=== PATIENT | female | born 1985 | race Caucasian/White ===

== ENCOUNTER 2019-05-11 | Emergency (ER) | payer MEDICARE, MEDICAID | END 2019-05-12 01:22 | disposition home or self-care (01) | CPT/HCPCS: 36415; 71045; 71275; 80048; 83605; 85025; 87040; 93005; 94002; 94640; A4216; J0692; J2270; J2405; J7620 ==

== ENCOUNTER 2019-07-08 13:00 | Emergency (ER) | payer MEDICARE, MEDICAID ==
[2019-07-08] MEDS ORDERED: FUROSEMIDE INJ 40 MG/4 ML VIAL IV ONE (13:16)
--- NOTE | 2019-07-08 13:20 | ED.PDOC ---
History of Present Illness - General Chief Complaint: General Stated Complaint: swelling of face Time Seen by Provider: 07/08/19 13:15 Source: patient, EMS Exam Limitations: no limitations - History of Present Illness Initial Comments: patient comes in today for facial swelling. Patient started having problems with chest pain, productive sputum, and shortness of breath or worsening been baseline about 3 days ago. She was started on antibiotics at the [facility] and she has a history of recurrent pneumonias secondary to COPD caused from all full 1 and had trips and deficiency. Because of that she has also ventilator dependent and has a trach in place. Patient states this morning her mom noticed that she had swelling of the right side of her face. She has a history of having dental pain with a bad tooth on that side but states it has not hurt for some time since she killed the nerves by putting one of her morphine pills directly at the root. Patient has been retaining fluid the last couple of days and her hands and feet are very swollen. She states she usually lays on that right side and didn't know if that was causing the swelling. Patient's complaining of chest pain with deep inspiration on the right side as well over the past several days. Patient has no nausea or vomiting. Patient denies any fever or chills. Patient is able to communicate and is alert and oriented. Timing/Duration: getting worse Severity: severe Improving Factors: nothing Worsening Factors: other - deep inspiration Associated Symptoms: cough, shortness of breath Allergies/Adverse Reactions: Allergies NSAIDs Allergy (Verified 05/11/19 22:08) Review of Systems - Review of Systems Constitutional: States: no symptoms reported. Denies: chills, fever EENTM: States: no symptoms reported. Denies: eye pain, ear pain, nose congestion, throat pain, mouth pain Respiratory: States: short of breath. Denies: cough, wheezing Cardiology: States: no symptoms reported. Denies: chest pain, edema, palpitations Gastrointestinal/Abdominal: States: no symptoms reported. Denies: abdominal pain, nausea, vomiting Genitourinary: States: no symptoms reported Musculoskeletal: States: no symptoms reported Neurological: States: no symptoms reported Past Medical History (General) - Patient Medical History Hx Seizures: No Hx Stroke: No Hx Dementia: No Hx Asthma: No Hx of COPD: No Hx Cardiac Disorders: No Hx Congestive Heart Failure: Yes Hx Pacemaker: No Hx Hypertension: Yes Hx Thyroid Disease: No Hx Diabetes: No Hx Gastroesophageal Reflux: No Hx Renal Disease: No Hx Cancer: No Hx of HIV: No Hx Hepatitis C: No Hx MRSA: No - Vaccination History Hx Tetanus, Diphtheria Vaccination: No - patient cannot recall Hx Influenza Vaccination: Yes Hx Pneumococcal Vaccination: Yes - Social History Hx Tobacco Use: No Hx Alcohol Use: Yes Hx Substance Use: No Hx Depression: No Hx Physical Abuse: No Hx Emotional Abuse: No Hx Suspected Abuse: No - Female History Patient : No Family Medical History - Family History Mother Family History: Unknown Physical Exam - Physical Exam General Appearance: Alert, Comfortable, No apparent distress Ears, Nose, Throat: hearing grossly normal, normal ENT inspection, normal pharynx, other - swelling to face with increased to right cheek, no tooth pain, erythema, fluctulance of gums Neck: non-tender, full range of motion, supple, normal inspection Respiratory: chest non-tender, decreased breath sounds, crackles - right side upper and lower lobes, rhonchi Cardiovascular/Chest: normal peripheral pulses, regular rate, rhythm, no edema, no gallop, no murmur Peripheral Pulses: radial,right: 2+, radial,left: 2+ Gastrointestinal/Abdominal: normal bowel sounds, non tender, soft Extremity: swelling - non pitting edema to hands and feet Neurologic: alert, oriented x 3 Progress - Progress Progress: 07/08/19 15:27 swelling is better after Lasix with reassuring lab results - Results/Orders Results/Orders: 07/08/19 13:16 Catheter:Coleman QSHIFT 07/08/19 13:17 URINALYSIS Stat 07/08/19 13:24 Mechanical Ventilation DAILY 07/08/19 13:30 EKG STAT Laboratory Results WBC 13.8 K/mm3 (4.8-10.8) H 07/08/19 13:16 RBC 2.90 M/mm3 (4.20-5.40) L 07/08/19 13:16 Hgb 8.4 gm/dL (12.0-16.0) L 07/08/19 13:16 Hct 25.7 % (36.0-47.0) L 07/08/19 13:16 MCV 88.7 fl (81.0-99.0) 07/08/19 13:16 MCH 28.9 pg (27.0-31.0) 07/08/19 13:16 MCHC 32.5 g/dL (33.0-37.0) L 07/08/19 13:16 RDW 14.9 % (11.5-14.5) H 07/08/19 13:16 Plt Count 428 K/mm3 (130-400) H 07/08/19 13:16 MPV 7.8 fl (7.40-10.4) 07/08/19 13:16 Absolute Neuts (auto) 10.40 K/uL (1.8-6.8) H 07/08/19 13:16 Absolute Lymphs (auto) 1.30 K/uL (1.0-3.4) 07/08/19 13:16 Absolute Monos (auto) 1.50 K/uL (0.2-0.8) H 07/08/19 13:16 Absolute Eos (auto) 0.50 K/uL (0.0-0.4) H 07/08/19 13:16 Absolute Basos (auto) 0.10 K/uL (0.0-0.1) 07/08/19 13:16 Neutrophils % 75.7 % (42.0-78.0) 07/08/19 13:16 Lymphocytes % 9.3 % (20.0-50.0) L 07/08/19 13:16 Monocytes % 11.0 % (2.0-9.0) H 07/08/19 13:16 Eosinophils % 3.3 % (1.0-5.0) 07/08/19 13:16 Basophils % 0.7 % (0.0-2.0) 07/08/19 13:16 Sodium 138 mmol/L (135-145) 07/08/19 13:16 Potassium 4.0 mmol/L (3.6-5.0) 07/08/19 13:16 Chloride 100 mmol/L (101-111) L 07/08/19 13:16 Carbon Dioxide 29 mmol/L (21-31) 07/08/19 13:16 Anion Gap 13.0 (12-18) 07/08/19 13:16 BUN 11 mg/dL (7-18) 07/08/19 13:16 Creatinine 0.53 mg/dL (0.6-1.3) L 07/08/19 13:16 BUN/Creatinine Ratio 20.8 (10-20) H 07/08/19 13:16 Random Glucose 115 mg/dL (70-105) H 07/08/19 13:16 Serum Osmolality 276.0 mOsm/L (275-295) 07/08/19 13:16 Lactic Acid 0.8 mmol/L (0.5-2.2) 07/08/19 13:16 Calcium 8.9 mg/dL (8.4-10.2) 07/08/19 13:16 Total Bilirubin 0.2 mg/dL (0.2-1.0) 07/08/19 13:16 AST 16 IU/L (10-42) 07/08/19 13:16 ALT 11 IU/L (10-60) 07/08/19 13:16 Alkaline Phosphatase 103 IU/L (42-121) 07/08/19 13:16 B-Natriuretic Peptide 11.0 pg/ml (0-100) 07/08/19 13:16 Serum Total Protein 7.1 gm/dL (6.4-8.2) 07/08/19 13:16 Albumin 2.6 g/dl (3.2-5.5) L 07/08/19 13:16 Globulin 4.5 gm/dL (2.3-3.5) H 07/08/19 13:16 Albumin/Globulin Ratio 0.6 (1.1-1.9) L 07/08/19 13:16 Patient Name: EDVIN ECKERT Gender: Female Date of : 1985 Referring Physician: FREDIS MARTINI Organization: [facility] Accession Number: [id number] Requested Date: July 08, 2019 13:16 Report Status: Final Requested Procedure: 1 Procedure Description: Chest,2 Views Modality: CR Findings Reporting MD: Antonia Srivastava Fellow MD: Not available Dictation Time: Option 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 Lungs are hyperexpanded. Extensive reticular opacities are seen in the bilateral mid and lower lung zones with areas of architectural distortion seen in the lower lobes. No large pleural effusion or pneumothorax is present. Heart size is within normal limits. No acute osseous abnormality. Impression: Findings of severe interstitial lung disease - EKG/XRAY/CT EKG: Sinus, Tachy, no ST T wave changes Comments: HR 113 with slight rightward shift ?R vent hypertrophy Departure - Departure Clinical Impression: Fluid retention Disposition: Discharge to SNF Departure Forms: ED Discharge - Pt. Copy, Patient Portal Self Enrollment Diet: regular diet Referrals: NAVEEN ELLIS [Primary Care Provider] - 1-2 Weeks Additional Instructions: return to ER for increased shortness of breath, chest pain
[2019-07-08] MEDS ORDERED: MORPHINE SULFATE INJ 10 MG/ML VIAL IV ONE ×2 (14:17→16:04)
--- NOTE | 2019-07-08 14:41 | RAD ---
Procedure: XR CHEST 2 VIEWS Exam Date: 07/08/2019 1:16 PM CDT Ordering Provider: FREDIS MARTINI Clinical Indication: chest pain, fluid retention, Comparison: May 11, 2019 Findings: Tracheostomy tube in expected position. Lungs are hyperexpanded. Extensive reticular opacities are seen in the bilateral mid and lower lung zones with areas of architectural distortion seen in the lower lobes. No large pleural effusion or pneumothorax is present. Heart size is within normal limits. No acute osseous abnormality. Impression: Findings of severe interstitial lung disease. Electronically signed by: Antonia Srivastava MD 07/08/2019 2:40 PM CDT
[2019-07-08 16:42] VITALS: BP 111/72; TEMP 98.1; O2SAT 97
== END 2019-07-08 16:00 ==
LOC: ER 13:00
DX: R60.0 Localized edema (principal); R00.0 Tachycardia, unspecified; I50.9 Heart failure, unspecified; I11.0 Hypertensive heart disease with heart failure; J44.9 Chronic obstructive pulmonary disease, unspecified; Z88.6 Allergy status to analgesic agent; Z87.01 Personal history of pneumonia (recurrent); Z99.11 Dependence on respirator [ventilator] status
CPT/HCPCS: 36415; 71046; 80053; 83605; 83880; 85025; 93005; 94002; J1940; J2270

== ENCOUNTER 2019-07-19 02:33 | Emergency (ER) | payer MEDICAID, MEDICARE ==
[2019-07-19 04:08] VITALS: TEMP 98.1
[2019-07-19 04:46] VITALS: BP 107/68; O2SAT 99
== END 2019-07-19 04:53 | disposition home or self-care (01) ==
LOC: ER 02:33
DX: R07.81 Pleurodynia (principal); I50.9 Heart failure, unspecified; I11.0 Hypertensive heart disease with heart failure; Z79.899 Other long term (current) drug therapy; Z88.6 Allergy status to analgesic agent; Z87.01 Personal history of pneumonia (recurrent); Z99.11 Dependence on respirator [ventilator] status
CPT/HCPCS: 71045; 80053; 81001; 85025; 93005; 94002; J1170; J2270; J2405

== ENCOUNTER 2019-07-29 05:34 | Emergency (ER) | payer MEDICARE ==
[2019-07-29] MEDS ORDERED: LEVALBUTEROL NEBS 1.25 MG/3 ML VIAL NEB ONE (05:53)
[2019-07-29] MEDS ORDERED: IPRATROPIUM BROMIDE NEBS 0.5 MG/2.5 ML VIAL NEB ONE (05:53)
[2019-07-29] MEDS ORDERED: ACETYLCYSTEIN 20 % 6,000 MG/30 ML VIAL NEB ONE (05:54)
[2019-07-29] MEDS ORDERED: MORPHINE SULFATE INJ 10 MG/ML VIAL IV ONE ×2 (06:15→07:24)
[2019-07-29] MEDS ORDERED: methylPREDNISolone SODIUM SUC 40 MG/ML VIAL IV ONE (06:16)
--- NOTE | 2019-07-29 06:41 | ED.PDOC ---
History of Present Illness - General Chief Complaint: Respiratory Problem Stated Complaint: short of breath with panic attack Time Seen by Provider: 07/29/19 05:45 Source: patient Exam Limitations: no limitations - History of Present Illness Initial Comments: The patient is a 33-year-old female presenting from the long-term ventilator care facility secondary to a sensation of shortness of breath along with some left posterior lateral pleuritic-type pain starting a day or 2 ago. The patient does have copious secretions. She apparently has some form of an alpha 1 antitrypsin deficiency. She has received several breathing treatments over the night which have not seemed to help a whole lot. EMS gave her a dose of Ativan which seems to help some. She does have significant anxiety and has had significant panic attacks in the past giving her some of her shortness of breath. She's also had significant pneumonias in the past as well. No fevers. Timing/Duration: 24 hours Severity: moderate Worsening Factors: movement Associated Symptoms: chest pain, shortness of breath Allergies/Adverse Reactions: Allergies NSAIDs Allergy (Verified 07/19/19 02:48) Tomato Allergy (Verified 07/19/19 02:48) Home Medications: Ambulatory Orders Acetaminophen [Tylenol] 500 mg PO Q8HRS PRN 07/19/19 Alum & Mag Hydrox-Simethicone [Mylanta] 5 ml PO Q8HRS PRN 07/19/19 Amoxicillin 500 mg PO TID 07/19/19 Arformoterol Tartrate Nebs [Brovana Nebs] 15 mcg NEB RTBID 07/19/19 Atropine 1% Ophth Briana [(None)] 5 ml SL TID 07/19/19 Budesonide (Inhalation) [Pulmicort] 0.5 mg INH BID 07/19/19 Cetirizine HCl [ZyrTEC] 10 mg PO DAILY 07/19/19 Clonazepam 1 mg PO Q8HRS 07/19/19 DULoxetine HCL [Cymbalta] 60 mg PO DAILY 07/19/19 Divalproex Sodium [Depakote Tab] 250 mg PO DAILY 07/19/19 Enoxaparin Sodium [Lovenox] 40 mg SUBCU QD 07/19/19 Furosemide 20 mg PO DAILY 07/19/19 Gabapentin 300 mg PO BID 07/19/19 HYDROcodone 10MG/APAP 325MG [[place] 10/325] 1 tab PO Q8HRS PRN 07/19/19 Ipratropium/Albuterol [Duoneb] 3 ml NEB Q6HRS PRN 07/19/19 Lactobacillus [Acidophilus] 1 cap PO DAILY 07/19/19 Lidocaine 1% 2 ml [Xylocaine] 2 ml NEB Q6HRS PRN 07/19/19 Magnesium Hydroxide [Milk Of Magnesia] 30 ml PO DAILY PRN 07/19/19 Multiple Vitamins W/ Minerals [Multivitamin Adult Extra] 1 tablet PO DAILY 07/19/19 Nitroglycerin 0.4 mg Tab [Nitrostat] 0.4 mg SL Q5MIN PRN 07/19/19 Nystatin Powder [Mycostatin] 15 gm TOP DAILY 07/19/19 Pantoprazole Tablet [Protonix] 40 mg PO ACBK 07/19/19 Potassium Chloride [Potassium Chloride ER] 10 meq PO BID 07/19/19 Promethazine HCl 25 mg PO Q6HR PRN 07/19/19 Scopolamine Patch 1.5MG [Transderm-Scop Patch] 1.5 mg TOP DAILY 07/19/19 Trazodone HCl [Trazodone Hydrochloride] 25 mg PO BEDTIME 07/19/19 Review of Systems - Review of Systems Constitutional: States: no symptoms reported EENTM: States: no symptoms reported Respiratory: States: cough, short of breath, wheezing Cardiology: States: chest pain Gastrointestinal/Abdominal: States: no symptoms reported Genitourinary: States: no symptoms reported Musculoskeletal: States: no symptoms reported Skin: States: no symptoms reported Neurological: States: anxiety - moderate and recurrent All other Systems: No Change from Baseline Past Medical History (General) - Patient Medical History Hx Seizures: No Hx Stroke: No Hx Dementia: No Hx Asthma: No Hx of COPD: No Hx Cardiac Disorders: Yes - tachycardia Hx Congestive Heart Failure: Yes Hx Pacemaker: No Hx Hypertension: Yes Hx Thyroid Disease: No Hx Diabetes: No Hx Gastroesophageal Reflux: No Hx Renal Disease: No Hx Cancer: No Hx of HIV: No Hx Hepatitis C: No Hx MRSA: No Surgical History: other - Vaccination History Hx Tetanus, Diphtheria Vaccination: No - patient cannot recall Hx Influenza Vaccination: Yes Hx Pneumococcal Vaccination: Yes - Social History Hx Tobacco Use: No Hx Alcohol Use: Yes Hx Substance Use: No Hx Depression: No Hx Physical Abuse: No Hx Emotional Abuse: No Hx Suspected Abuse: No - Activities of Daily Living [facility]dc[facility]Assisted Living (if applicable):: [facility] - Female History Patient : No Family Medical History - Family History Mother Family History: Unknown Physical Exam - Physical Exam General Appearance: Alert, Anxious Eye Exam: bilateral normal - the patient the patient does have bilateral subconjunctival hemorrhages. Vision is preserved. Ears, Nose, Throat: hearing grossly normal, normal pharynx Neck: full range of motion, other - trach collar in place Respiratory: accessory muscle use - mild, other - chronic dry rales Cardiovascular/Chest: normal peripheral pulses, no edema, tachycardia - regular Peripheral Pulses: radial,right: 2+, radial,left: 2+ Gastrointestinal/Abdominal: non tender, soft Rectal Exam: deferred Back Exam: other - posterior lateral left thoracic pain with mvt and palpation Extremity: normal range of motion, non-tender, normal inspection, normal capillary refill Neurologic: physics tutor II-XII nml as tested, alert, oriented x 3, other - anxious Skin Exam: normal color Comments: Vital Signs - 24 hr 07/29/19 07/29/19 07/29/19 05:51 05:57 06:17 Temperature 97.6 F 99.0 F Pulse Rate 140 H Pulse Rate [ 135 H 131 H 140 H left] Respiratory 22 22 22 Rate Blood Pressure 160/96 113/70 [right] O2 Sat by Pulse 100 94 L Oximetry Progress - Progress Progress: 07/29/19 07:25 the patient is a 33-year-old female brought into the emergency room secondary to shortness of breath and what appears to be left lateral pleuritic chest pain. The patient is feeling better at this point. She is oxygenating as she normally does. The breathing treatment with Mucomyst seems to have helped. The pain management for the pleurisy also seemed to help. she does have a leukocytosis of approximately 19,000. This is up from 9000 last week. While the chest x-ray showed no definitive pneumonia, given her chronic conditions the patient is going to be placed on Augmentin twice a day for 7 days and prednisone 20 mg a day for 5 days. She is going to be written for once daily Mucomyst nebulizer treatments for the next week as well. the patient is going to be written for 2 weeks worth of doxepin to be taken at night for her anxiety. This is not a good long-term solution for this patient. She does need to see her primary care doctor for other options for her anxiety. I do believe it was a significant contributor to her shortness of breath tonight. ER warnings are given for any worsening. The patient looks much more comfortable at this point. 07/29/19 07:31 autumn key 747 - Results/Orders Results/Orders: 07/29/19 05:54 Chest,1 View [RAD] Stat 07/29/19 06:10 SPUTUM CULTURE Stat 07/29/19 06:30 B-TYPE NATRIURETIC PEPTIDE/BNP Stat CARDIAC ENZYME GROUP Stat COMPLETE METABOLIC PROFILE Stat Laboratory Results - last 24 hr 07/29/19 07/29/19 06:30 06:30 WBC 18.9 H RBC 3.63 L Hgb 10.4 L Hct 32.8 L MCV 90.5 MCH 28.6 MCHC 31.6 L RDW 16.6 H Plt Count 471 H MPV 8.0 Absolute Neuts (auto) 15.50 H Absolute Lymphs (auto) 1.50 Absolute Monos (auto) 1.50 H Absolute Eos (auto) 0.50 H Absolute Basos (auto) 0.10 Neutrophils % 81.8 H Lymphocytes % 7.7 L Monocytes % 7.7 Eosinophils % 2.4 Basophils % 0.4 Sodium 138 Potassium 4.1 Chloride 97 L Carbon Dioxide 29 Anion Gap 16.1 BUN 14 Creatinine 0.72 BUN/Creatinine Ratio 19.4 Random Glucose 104 Serum Osmolality 276.5 Calcium 8.8 Total Bilirubin 0.3 AST 16 ALT < 8 L Alkaline Phosphatase 82 Creatine Kinase 27 Serum Total Protein 8.5 H Albumin 3.6 Globulin 4.9 H Albumin/Globulin Ratio 0.7 L Departure - Departure Clinical Impression: [id number] deficiency, Pleurisy, Anxiety attack Reactive airway disease Qualifiers: Asthma severity: moderate Asthma persistence: persistent Asthma complication type: with acute exacerbation Qualified Code(s): J45.41 - Moderate persistent asthma with (acute) exacerbation Disposition: Discharge to SNF Condition: Fair Departure Forms: ED Discharge - Pt. Copy, Patient Portal Self Enrollment Diet: regular diet - for the patient Activity: increase activity as tolerated Referrals: NAVEEN ELLIS [Primary Care Provider] - 1-2 Days Home Medications: Ambulatory Orders Acetaminophen [Tylenol] 500 mg PO Q8HRS PRN 07/19/19 Alum & Mag Hydrox-Simethicone [Mylanta] 5 ml PO Q8HRS PRN 07/19/19 Amoxicillin 500 mg PO TID 07/19/19 Arformoterol Tartrate Nebs [Brovana Nebs] 15 mcg NEB RTBID 07/19/19 Atropine 1% Ophth Briana [(None)] 5 ml SL TID 07/19/19 Budesonide (Inhalation) [Pulmicort] 0.5 mg INH BID 07/19/19 Cetirizine HCl [ZyrTEC] 10 mg PO DAILY 07/19/19 Clonazepam 1 mg PO Q8HRS 07/19/19 DULoxetine HCL [Cymbalta] 60 mg PO DAILY 07/19/19 Divalproex Sodium [Depakote Tab] 250 mg PO DAILY 07/19/19 Enoxaparin Sodium [Lovenox] 40 mg SUBCU QD 07/19/19 Furosemide 20 mg PO DAILY 07/19/19 Gabapentin 300 mg PO BID 07/19/19 HYDROcodone 10MG/APAP 325MG [[place] 10/325] 1 tab PO Q8HRS PRN 07/19/19 Ipratropium/Albuterol [Duoneb] 3 ml NEB Q6HRS PRN 07/19/19 Lactobacillus [Acidophilus] 1 cap PO DAILY 07/19/19 Lidocaine 1% 2 ml [Xylocaine] 2 ml NEB Q6HRS PRN 07/19/19 Magnesium Hydroxide [Milk Of Magnesia] 30 ml PO DAILY PRN 07/19/19 Multiple Vitamins W/ Minerals [Multivitamin Adult Extra] 1 tablet PO DAILY 07/19/19 Nitroglycerin 0.4 mg Tab [Nitrostat] 0.4 mg SL Q5MIN PRN 07/19/19 Nystatin Powder [Mycostatin] 15 gm TOP DAILY 07/19/19 Pantoprazole Tablet [Protonix] 40 mg PO ACBK 07/19/19 Potassium Chloride [Potassium Chloride ER] 10 meq PO BID 07/19/19 Promethazine HCl 25 mg PO Q6HR PRN 07/19/19 Scopolamine Patch 1.5MG [Transderm-Scop Patch] 1.5 mg TOP DAILY 07/19/19 Trazodone HCl [Trazodone Hydrochloride] 25 mg PO BEDTIME 07/19/19 Additional Instructions: the patient is a 33-year-old female brought into the emergency room secondary to shortness of breath and what appears to be left lateral pleuritic chest pain. The patient is feeling better at this point. She is oxygenating as she normally does. The breathing treatment with Mucomyst seems to have helped. The pain management for the pleurisy also seemed to help. she does have a leukocytosis of approximately 19,000. This is up from 9000 last week. While the chest x-ray showed no definitive pneumonia, given her chronic conditions the patient is going to be placed on Augmentin twice a day for 7 days and prednisone 20 mg a day for 5 days. She is going to be written for once daily Mucomyst nebulizer treatments for the next week as well. the patient is going to be written for 2 weeks worth of doxepin to be taken at night for her anxiety. This is not a good long-term solution for this patient. She does need to see her primary care doctor for other options for her anxiety. I do believe it was a significant contributor to her shortness of breath tonight. ER warnings are given for any worsening. The patient looks much more comfortable at this point.
--- NOTE | 2019-07-29 07:00 | RAD ---
CLINICAL HISTORY: sob, anxiety left lateral chest pain COMPARISON: July 19, 2019. TECHNIQUE: XR CHEST 1 VIEW 07/29/2019 5:54 AM CDT FINDINGS: Cardiac silhouette is normal in size. There is moderate bibasilar and mid lung airspace disease. There are bilateral pleural effusions. There is no pneumothorax. There are no acute osseous findings. Tracheostomy is unchanged. IMPRESSION: No change. Electronically signed by: Fernando Nunez MD 07/29/2019 6:57 AM CDT
[2019-07-29] MEDS ORDERED: predniSONE 20 MG TAB GT ONE (07:24)
[2019-07-29] MEDS ORDERED: AMOXICILLIN & POT CLAVULANATE 875 MG TAB GT ONE (07:24)
[2019-07-29] MEDS ORDERED: AMOXICILLIN & POT CLAVULANATE 875 MG TAB PO ONE (07:47)
[2019-07-29] MEDS ORDERED: predniSONE 20 MG TAB PO ONE (07:47)
[2019-07-29 08:20] VITALS: BP 115/89; TEMP 97; O2SAT 100
== END 2019-07-29 08:18 ==
LOC: ER 05:34
DX: J45.41 Moderate persistent asthma with (acute) exacerbation (principal); F41.9 Anxiety disorder, unspecified; R09.1 Pleurisy; E88.01 Alpha-1-antitrypsin deficiency; I50.9 Heart failure, unspecified; I11.0 Hypertensive heart disease with heart failure; Z87.01 Personal history of pneumonia (recurrent); Z88.6 Allergy status to analgesic agent; Z79.899 Other long term (current) drug therapy
CPT/HCPCS: 36415; 71045; 80053; 82550; 82553; 83880; 84484; 85025; 87070; 94002; 94640; 94770; J1030; J2270; J7614

== ENCOUNTER 2019-09-11 18:20 | Emergency (ER) | payer MEDICARE ==
[2019-09-11 18:42] VITALS: TEMP 97.9
--- NOTE | 2019-09-11 18:55 | ED.PDOC ---
History of Present Illness - General Chief Complaint: Respiratory Problem Stated Complaint: shortness of breath Time Seen by Provider: 09/11/19 18:35 - History of Present Illness Initial Comments: 34 yo F tracheostomy and aspiration pneumonia presents to the ED with copious green secretions and phlegm from tacheostomy site and coughing. Limited history but patient has been coughing so hard has ecchymosis around right periorbital area. Pt. follow commands and respiratory at bedside pt. c/o chest pain sob. Reports sweating at night but no diaphoresis. No change in diet bowel or bladder symptoms are disturbing rest. Denies drinking or smoking admits FH DM denies FH HTN no other c/o today. Allergies/Adverse Reactions: Allergies NSAIDs Allergy (Verified 07/19/19 02:48) Tomato Allergy (Verified 07/19/19 02:48) Home Medications: Ambulatory Orders Acetaminophen [Tylenol] 500 mg PO Q8HRS PRN 07/19/19 Alum & Mag Hydrox-Simethicone [Mylanta] 5 ml PO Q8HRS PRN 07/19/19 Amoxicillin 500 mg PO TID 07/19/19 Arformoterol Tartrate Nebs [Brovana Nebs] 15 mcg NEB RTBID 07/19/19 Atropine 1% Ophth Briana [(None)] 5 ml SL TID 07/19/19 Budesonide (Inhalation) [Pulmicort] 0.5 mg INH BID 07/19/19 Cetirizine HCl [ZyrTEC] 10 mg PO DAILY 07/19/19 Clonazepam 1 mg PO Q8HRS 07/19/19 DULoxetine HCL [Cymbalta] 60 mg PO DAILY 07/19/19 Divalproex Sodium [Depakote Tab] 250 mg PO DAILY 07/19/19 Enoxaparin Sodium [Lovenox] 40 mg SUBCU QD 07/19/19 Furosemide 20 mg PO DAILY 07/19/19 Gabapentin 300 mg PO BID 07/19/19 HYDROcodone 10MG/APAP 325MG [[place] 10/325] 1 tab PO Q8HRS PRN 07/19/19 Ipratropium/Albuterol [Duoneb] 3 ml NEB Q6HRS PRN 07/19/19 Lactobacillus [Acidophilus] 1 cap PO DAILY 07/19/19 Lidocaine 1% 2 ml [Xylocaine] 2 ml NEB Q6HRS PRN 07/19/19 Magnesium Hydroxide [Milk Of Magnesia] 30 ml PO DAILY PRN 07/19/19 Multiple Vitamins W/ Minerals [Multivitamin Adult Extra] 1 tablet PO DAILY 07/19/19 Nitroglycerin 0.4 mg Tab [Nitrostat] 0.4 mg SL Q5MIN PRN 07/19/19 Nystatin Powder [Mycostatin] 15 gm TOP DAILY 07/19/19 Pantoprazole Tablet [Protonix] 40 mg PO ACBK 07/19/19 Potassium Chloride [Potassium Chloride ER] 10 meq PO BID 07/19/19 Promethazine HCl 25 mg PO Q6HR PRN 07/19/19 Scopolamine Patch 1.5MG [Transderm-Scop Patch] 1.5 mg TOP DAILY 07/19/19 Trazodone HCl [Trazodone Hydrochloride] 25 mg PO BEDTIME 07/19/19 Review of Systems - Review of Systems Constitutional: States: see HPI EENTM: States: see HPI Respiratory: States: see HPI Cardiology: States: see HPI Gastrointestinal/Abdominal: States: see HPI Genitourinary: States: see HPI Musculoskeletal: States: see HPI Skin: States: see HPI Neurological: States: see HPI Endocrine: States: see HPI Hematologic/Lymphatic: States: see HPI All other Systems: Reviewed and Negative Past Medical History (General) - Patient Medical History Hx Seizures: No Hx Stroke: No Hx Dementia: No Hx Asthma: No Hx of COPD: No Hx Cardiac Disorders: Yes - tachycardia Hx Congestive Heart Failure: Yes Hx Pacemaker: No Hx Hypertension: Yes Hx Thyroid Disease: No Hx Diabetes: No Hx Gastroesophageal Reflux: No Hx Renal Disease: No Hx Cancer: No Hx of HIV: No Hx Hepatitis C: No Hx MRSA: No Surgical History: cholecystectomy - Vaccination History Hx Tetanus, Diphtheria Vaccination: No - patient cannot recall Hx Influenza Vaccination: Yes Hx Pneumococcal Vaccination: Yes - Social History Hx Tobacco Use: No Hx Alcohol Use: Yes Hx Substance Use: No Hx Depression: No Hx Physical Abuse: No Hx Emotional Abuse: No Hx Suspected Abuse: No - Activities of Daily Living Shelter/Assisted Living (if applicable):: [facility] - Female History Patient : No Family Medical History - Family History Mother Family History: Unknown Physical Exam - Physical Exam General Appearance: Other - uncomfortable coughing sob much more comfortable after suction respiratory at bedside Eyes, Ears, Nose, Throat Exam: other - tracheostomy in place greenish plegm sputum Neck: non-tender, full range of motion Respiratory: other - rales bilaterally Cardiovascular/Chest: tachycardia Gastrointestinal/Abdominal: non tender, soft Rectal Exam: deferred Extremity: normal range of motion, non-tender Neurologic: no motor/sensory deficits Skin Exam: other - RLE erythema and swelling Progress - Progress Progress: 09/11/19 18:57 A/P-Respiratory Distress, Aspiration Pneumonia, Tracheostomy Care-respiratory suction iv bolus cbc cmp lipase trop ekg 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 does not wish to be transferred to [place] has improved after suction will transfer back to correction - Results/Orders Results/Orders: Non specific TW changes Sinus Tachycardia, abnormal EKG Laboratory Tests 09/11/19 09/11/19 09/11/19 19:20 19:20 19:20 WBC 11.9 H RBC 3.20 L Hgb 8.9 L Hct 28.3 L MCV 88.5 MCH 27.9 MCHC 31.5 L RDW 15.3 H Plt Count 318 MPV 7.2 L Absolute Neuts (auto) 8.90 H Absolute Lymphs (auto) 1.40 Absolute Monos (auto) 1.10 H Absolute Eos (auto) 0.30 Absolute Basos (auto) 0.10 Neutrophils % 75.2 Lymphocytes % 11.9 L Monocytes % 9.6 H Eosinophils % 2.7 Basophils % 0.6 Sodium 136 Potassium 3.9 Chloride 88 L Carbon Dioxide 36 H Anion Gap 15.9 BUN 10 Creatinine 0.73 BUN/Creatinine Ratio 13.7 Random Glucose 103 Serum Osmolality 271.3 L Lactic Acid Calcium 8.5 Total Bilirubin 0.5 AST 15 ALT 9 L Alkaline Phosphatase 73 Troponin I < 0.02 Serum Total Protein 7.5 Albumin 3.2 Globulin 4.3 H Albumin/Globulin Ratio 0.7 L Lipase 26 Serum HCG, Qual Urine HCG, Qual 09/11/19 09/11/19 19:20 19:20 WBC RBC Hgb Hct MCV MCH MCHC RDW Plt Count MPV Absolute Neuts (auto) Absolute Lymphs (auto) Absolute Monos (auto) Absolute Eos (auto) Absolute Basos (auto) Neutrophils % Lymphocytes % Monocytes % Eosinophils % Basophils % Sodium Potassium Chloride Carbon Dioxide Anion Gap BUN Creatinine BUN/Creatinine Ratio Random Glucose Serum Osmolality Lactic Acid 0.6 Calcium Total Bilirubin AST ALT Alkaline Phosphatase Troponin I Serum Total Protein Albumin Globulin Albumin/Globulin Ratio Lipase Serum HCG, Qual Negative Urine HCG, Qual Cancelled EXAM DESCRIPTION: XR Chest, one view CLINICAL HISTORY: aspiration pneumonia. COMPARISON: July 29, 2019 FINDINGS: Gastric tube is again noted. The heart is normal in size. The pulmonary vascularity is normal. Changes of COPD with superimposed increased interstitial markings in the perihilar and infrahilar regions are noted. Hyperinflation is seen in the upper lobes. Blunting of the left costophrenic angle is noted. The osseous structures appear unremarkable. IMPRESSION: Extensive chronic interstitial changes. Electronically signed by: Jordana Chavez MD 09/11/2019 8:35 PM CDT Departure - Departure Clinical Impression: Respiratory distress, Tracheostomy care Aspiration pneumonia Qualifiers: Aspiration pneumonia type: unspecified Laterality: unspecified laterality Lung location: unspecified part of lung Qualified Code(s): J69.0 - Pneumonitis due to inhalation of food and vomit Time of Disposition: 23:17 Disposition: Discharge to SNF Condition: Good Departure Forms: ED Discharge - Pt. Copy, Patient Portal Self Enrollment Instructions: DI for Pneumonia -- Adult Referrals: NAVEEN ELLIS [Primary Care Provider] - 1-2 Weeks Home Medications: Ambulatory Orders Acetaminophen [Tylenol] 500 mg PO Q8HRS PRN 07/19/19 Alum & Mag Hydrox-Simethicone [Mylanta] 5 ml PO Q8HRS PRN 07/19/19 Amoxicillin 500 mg PO TID 07/19/19 Arformoterol Tartrate Nebs [Brovana Nebs] 15 mcg NEB RTBID 07/19/19 Atropine 1% Ophth Briana [(None)] 5 ml SL TID 07/19/19 Budesonide (Inhalation) [Pulmicort] 0.5 mg INH BID 07/19/19 Cetirizine HCl [ZyrTEC] 10 mg PO DAILY 07/19/19 Clonazepam 1 mg PO Q8HRS 07/19/19 DULoxetine HCL [Cymbalta] 60 mg PO DAILY 07/19/19 Divalproex Sodium [Depakote Tab] 250 mg PO DAILY 07/19/19 Enoxaparin Sodium [Lovenox] 40 mg SUBCU QD 07/19/19 Furosemide 20 mg PO DAILY 07/19/19 Gabapentin 300 mg PO BID 07/19/19 HYDROcodone 10MG/APAP 325MG [[place] 10325] 1 tab PO Q8HRS PRN 07/19/19 Ipratropium/Albuterol [Duoneb] 3 ml NEB Q6HRS PRN 07/19/19 Lactobacillus [Acidophilus] 1 cap PO DAILY 07/19/19 Lidocaine 1% 2 ml [Xylocaine] 2 ml NEB Q6HRS PRN 07/19/19 Magnesium Hydroxide [Milk Of Magnesia] 30 ml PO DAILY PRN 07/19/19 Multiple Vitamins W/ Minerals [Multivitamin Adult Extra] 1 tablet PO DAILY 07/19/19 Nitroglycerin 0.4 mg Tab [Nitrostat] 0.4 mg SL Q5MIN PRN 07/19/19 Nystatin Powder [Mycostatin] 15 gm TOP DAILY 07/19/19 Pantoprazole Tablet [Protonix] 40 mg PO ACBK 07/19/19 Potassium Chloride [Potassium Chloride ER] 10 meq PO BID 07/19/19 Promethazine HCl 25 mg PO Q6HR PRN 07/19/19 Scopolamine Patch 1.5MG [Transderm-Scop Patch] 1.5 mg TOP DAILY 07/19/19 Trazodone HCl [Trazodone Hydrochloride] 25 mg PO BEDTIME 07/19/19
[2019-09-11] MEDS ORDERED: metroNIDAZOLE IV PREMIX 500MG 100 ML IVPB ONE (19:26)
[2019-09-11] MEDS: SODIUM CHLORIDE 0.9% 1000ML 1,000 ML IVS ONE (19:28)
[2019-09-11] MEDS: metroNIDAZOLE IV PREMIX 500MG 500 MG in PREMIX BAG 1 BAG IVPB ONE (19:29)
[2019-09-11] MEDS: IPRATROPIUM/ALBUTEROL 3 ML VIAL NEB ONE (19:35)
[2019-09-11] MEDS ORDERED: PIPERACILLIN/TAZOBACTAM 3.375 GM VIAL IVPB ONE (20:18)
[2019-09-11] MEDS ORDERED: SODIUM CHLORIDE 0.9% 100ML 100 ML IVPB ONE ×2 (20:18→20:20)
[2019-09-11] MEDS: PIPERACILLIN/TAZOBACTAM 3.375 GM in SODIUM CHLORIDE 0.9% 100ML 100 ML IVPB ONE (20:22)
--- NOTE | 2019-09-11 20:41 | RAD ---
EXAM DESCRIPTION: XR Chest, one view CLINICAL HISTORY: aspiration pneumonia. COMPARISON: July 29, 2019 FINDINGS: Gastric tube is again noted. The heart is normal in size. The pulmonary vascularity is normal. Changes of COPD with superimposed increased interstitial markings in the perihilar and infrahilar regions are noted. Hyperinflation is seen in the upper lobes. Blunting of the left costophrenic angle is noted. The osseous structures appear unremarkable. IMPRESSION: Extensive chronic interstitial changes. Electronically signed by: Jordana Chavez MD 09/11/2019 8:35 PM CDT
[2019-09-11] MEDS ORDERED: VANCOMYCIN HCL INJ 1,000 MG VIAL IVPB ONE (21:03)
[2019-09-11] MEDS ORDERED: SODIUM CHLORIDE 0.9% 250ML 250 ML ONE (21:03)
[2019-09-11] MEDS: VANCOMYCIN HCL INJ 1,000 MG in SODIUM CHLORIDE 0.9% 250ML 250 ML IVPB ONE (21:43)
[2019-09-11] MEDS: MORPHINE SULFATE INJ 10 MG/ML VIAL IV ONE (22:31)
[2019-09-11] MEDS: ONDANSETRON INJ 4 MG/2 ML VIAL IV ONE (22:32)
[2019-09-11 23:31] VITALS: BP 101/68; O2SAT 100
[2019-09-12] MEDS: SODIUM CHLORIDE 0.9% 1000ML 1,000 ML IVS ONE (06:35)
== END 2019-09-11 23:52 ==
LOC: ER 18:20
DX: R06.03 Acute respiratory distress (principal); J69.0 Pneumonitis due to inhalation of food and vomit; R00.0 Tachycardia, unspecified; R07.9 Chest pain, unspecified; I50.9 Heart failure, unspecified; I11.0 Hypertensive heart disease with heart failure; Z93.0 Tracheostomy status; Z79.899 Other long term (current) drug therapy; Z88.6 Allergy status to analgesic agent
CPT/HCPCS: 71045; 80053; 83605; 83690; 84484; 84703; 85025; 87040; 87502; 93005; 94002; 94770; J2060; J2270; J2405; J2543; J3370; J3490; J7030; J7050; J7620

== ENCOUNTER 2020-01-12 21:21 | Emergency (ER) | payer MEDICARE, MEDICAID ==
[2020-01-12] MEDS: SODIUM CHLORIDE 0.9% (FLUSH) 10 ML SYG IV PRN (22:03)
[2020-01-12] MEDS: SODIUM CHLORIDE 0.9% 1000ML 1,000 ML IVS ONE (22:05)
[2020-01-12] MEDS ORDERED: SODIUM CHL 0.9% 100ML MINI-BAG 100 ML IVPB ONE (22:05)
[2020-01-12] MEDS: cefTRIAXone SODIUM 2 GM in SODIUM CHL 0.9% 100ML MINI-BAG 100 ML IVPB ONE (22:05)
[2020-01-12] MEDS: fentaNYL CITRATE INJ 50 MCG/ML AMP IV ONE (22:06)
[2020-01-12] MEDS: ONDANSETRON INJ 4 MG/2 ML VIAL IV ONE (22:06)
--- NOTE | 2020-01-12 22:35 | ED.PDOC ---
History of Present Illness - General Chief Complaint: Respiratory Problem Stated Complaint: Shortness of breath, chest pain Time Seen by Provider: 01/12/20 21:33 Source: patient, RN notes reviewed, Vital Signs reviewed, EMS notes reviewed Exam Limitations: physical impairment - Chronic tracheostomy - History of Present Illness Initial Comments: This is a 34-year-old female with history of alpha 1 antitrypsin deficiency, COPD, chronic trach dependence, from the retirement presenting for chest pain that started yesterday. She also reports some increased cough and felt like "something got stuck yesterday in my lungs and they were unable to suction it". She states her chest pain worsens with cough and deep breathing. Nurses notes from the retirement also report increased edema, patient denies any worsening swelling. Patient was treated with a Z-Lam at her retirement 2 weeks ago. She denies any fever. No nausea/vomiting. Timing/Duration: yesterday Severity: moderate Possible Cause: frequent episodes Improving Factors: nothing Worsening Factors: other - Cough, deep breathing Associated Symptoms: chest pain/soreness, cough, shortness of breath Allergies/Adverse Reactions: Allergies NSAIDs Allergy (Verified 07/19/19 02:48) Tomato Allergy (Verified 07/19/19 02:48) Home Medications: Ambulatory Orders Acetaminophen [Tylenol] 500 mg PO Q8HRS PRN 07/19/19 Alum & Mag Hydrox-Simethicone [Mylanta] 5 ml PO Q8HRS PRN 07/19/19 Amoxicillin 500 mg PO TID 07/19/19 Arformoterol Tartrate Nebs [Brovana Nebs] 15 mcg NEB RTBID 07/19/19 Atropine 1% Ophth Briana [(None)] 5 ml SL TID 07/19/19 Budesonide (Inhalation) [Pulmicort] 0.5 mg INH BID 07/19/19 Cetirizine HCl [ZyrTEC] 10 mg PO DAILY 07/19/19 Clonazepam 1 mg PO Q8HRS 07/19/19 DULoxetine HCL [Cymbalta] 60 mg PO DAILY 07/19/19 Divalproex Sodium [Depakote Tab] 250 mg PO DAILY 07/19/19 Enoxaparin Sodium [Lovenox] 40 mg SUBCU QD 07/19/19 Furosemide 20 mg PO DAILY 07/19/19 Gabapentin 300 mg PO BID 07/19/19 HYDROcodone 10MG/APAP 325MG [[place] 10/325] 1 tab PO Q8HRS PRN 07/19/19 Ipratropium/Albuterol [Duoneb] 3 ml NEB Q6HRS PRN 07/19/19 Lactobacillus [Acidophilus] 1 cap PO DAILY 07/19/19 Lidocaine 1% 2 ml [Xylocaine] 2 ml NEB Q6HRS PRN 07/19/19 Magnesium Hydroxide [Milk Of Magnesia] 30 ml PO DAILY PRN 07/19/19 Multiple Vitamins W/ Minerals [Multivitamin Adult Extra] 1 tablet PO DAILY Nitroglycerin 0.4 mg Tab [Nitrostat] 0.4 mg SL Q5MIN PRN 07/19/19 Nystatin Powder [Mycostatin] 15 gm TOP DAILY 07/19/19 Pantoprazole Tablet [Protonix] 40 mg PO ACBK 07/19/19 Potassium Chloride [Potassium Chloride ER] 10 meq PO BID 07/19/19 Promethazine HCl 25 mg PO Q6HR PRN 07/19/19 Scopolamine Patch 1.5MG [Transderm-Scop Patch] 1.5 mg TOP DAILY 07/19/19 Trazodone HCl [Trazodone Hydrochloride] 25 mg PO BEDTIME 07/19/19 Meropenem % Sodium Chloride [Meropenem/Sodium Chloride 1 gm/50Ml] 1 inj IV Q24HR 9 Days inj 01/13/20 Review of Systems - Review of Systems Constitutional: Denies: chills, fever EENTM: Denies: nose congestion, throat pain, mouth pain Respiratory: States: cough, short of breath. Denies: wheezing Cardiology: States: chest pain, edema. Denies: palpitations Genitourinary: Denies: dysuria, hematuria Musculoskeletal: States: back pain - Chronic, muscle pain Skin: Denies: change in color, rash Neurological: Denies: headache, paresthesia, tingling, weakness Endocrine: States: no symptoms reported Hematologic/Lymphatic: Denies: easy bleeding, easy bruising Past Medical History (General) - Patient Medical History Hx Seizures: No Hx Stroke: No Hx Dementia: No Hx Asthma: No Hx of COPD: No Hx Cardiac Disorders: Yes - tachycardia Hx Congestive Heart Failure: Yes Hx Pacemaker: No Hx Hypertension: Yes Hx Thyroid Disease: No Hx Diabetes: No Hx Gastroesophageal Reflux: No Hx Renal Disease: No Hx Cancer: No Hx of HIV: No Hx Hepatitis C: No Hx MRSA: No - Vaccination History Hx Tetanus, Diphtheria Vaccination: No - patient cannot recall Hx Influenza Vaccination: Yes Hx Pneumococcal Vaccination: Yes - Social History Hx Tobacco Use: No Hx Alcohol Use: Yes Hx Substance Use: No Hx Depression: No Hx Physical Abuse: No Hx Emotional Abuse: No Hx Suspected Abuse: No - Female History Patient : No Family Medical History - Family History Mother Family History: Unknown Physical Exam - Physical Exam General Appearance: Alert, Ill Appearing, Well Hydrated, Well Nourished, Other - Appears uncomfortable. Cushingoid facies ENT Exam: normal ENT inspection, TMs normal Neck: non-tender, supple, trachea midline, other - Tracheostomy present, stoma appears clean, dry, intact, no evidence of significant skin breakdown. Respiratory: no respiratory distress, no accessory muscle use, other - Occasional coarse breath sounds bilaterally Cardiovascular/Chest: normal peripheral pulses, regular rate, rhythm, no edema, no JVD, tachycardia, other - No pitting edema, no calf tenderness Gastrointestinal/Abdominal: non tender, soft, other - Obese Extremity: non-tender, normal inspection, no pedal edema Neurologic: no motor/sensory deficits, alert, oriented x 3 Skin Exam: normal color, warm/dry Progress - Progress Progress: 01/12/20 23:43 Recheck. Patient reports ongoing chest pain. Discussed labs, chest x-ray findings, concern for new infiltrate on chest x-ray likely developing pneumonia. Patient states she suspected pneumonia for several days. Strongly recommended transfer to [place], patient adamantly refuses transfer. I discussed inability to admit at this facility given her chronic ventilator dependence. Patient requests to be sent back to the retirement to be treated there. Will verify with retirement that they have broad-spectrum IV antibiotics available prior to sending back to retirement.Blood cultures are pending at this time, will send sputum cultures as well. 01/13/20 00:01 Patient reporting worsening chest pain. Morphine ordered. She states breathing and respiratory effort somewhat better after DuoNeb treatment.Awaiting CT. 01/13/20 00:08 Reviewed previous respiratory culture results from previous ER visits. Previous cultures have grown out fluoroquinolone resistant Pseudomonas. They were sensitive to imipenem and cefepime. Patient reports a history of a severe penicillin allergy, will recommend meropenem at the retirement if she is discharged back. RN was able to confirm that they do have meropenem available at the retirement for use, will only need to order written by me in order to administer. 01/13/20 00:53 Mother is now present in the emergency department. Discussed labs, chest x-ray findings, plan for CT. Discussed initial plan for transfer and patient's reluctance to undergo transfer. Will await CT results to determine final disposition. 01/13/20 02:[address] report with patient and mother. Sats remain in the upper 90s, no respiratory distress at this time. Recommended follow-up with her PCP to discuss possible pulmonology evaluation given severity of her emphysematous changes and bronchiectasis on CT. Will discharge back to retirement with plan for IV meropenem while blood cultures/sputum cultures are resulted. Strict warnings given to return the emergency room for fevers, worsening shortness of breath, worsening pain, changes in mental status, or any concerns. - Results/Orders Results/Orders: CXR IMPRESSION: There are patchy areas of infiltrate bilaterally with dense area of consolidation in the right perihilar region and right midlung field which appears new when compared to more remote studies. Changes likely reflect chronic bronchitis and bronchiectasis with possible superimposed acute infiltrate in the right lower lobe. Suspect areas of chronic infiltrate or fibrosis along the lung bases Question right effusion Tracheostomy tube in place Electronically signed by: Rita Narayan MD 01/12/2020 11:21 PM 01/12/20 21:42 IV Care:Saline Lock per Protoc QSHIFT Telemetry .ONCE Sodium Chloride 0.9% (Flush) [Saline Flush Syringe] 10 ml IV PRN PRN EKG Stat Pulse Ox Stat Pulse Oximetry Assessment DAILY URINALYSIS Stat 01/12/20 22:00 BLOOD CULTURE Stat 01/12/20 22:57 levoFLOXacin 750MG IV [Levaquin 750MG IV] 750 mg Premix Bag 1 bag IVPB ONCE 01/12/20 23:05 CTA Chest [CT] Stat 01/12/20 23:45 LACTIC ACID Q2H Laboratory Results - last 24 hr 01/12/20 01/12/20 01/12/20 22:00 22:00 22:00 WBC 6.2 RBC 4.91 Hgb 14.4 Hct 45.6 MCV 92.7 MCH 29.3 MCHC 31.6 L RDW 15.3 H Plt Count 154 MPV 7.7 Absolute Neuts (auto) 4.60 Absolute Lymphs (auto) 0.70 L Absolute Monos (auto) 0.60 Absolute Eos (auto) 0.20 Absolute Basos (auto) 0.00 Neutrophils % 75.2 Lymphocytes % 11.5 L Monocytes % 10.1 H Eosinophils % 3.0 Basophils % 0.2 PT 11.4 H INR 1.15 PTT (SP) 26.9 Sodium 140 Potassium 5.0 Chloride 96 L Carbon Dioxide 37 H Anion Gap 12.0 BUN 13 Creatinine 0.65 BUN/Creatinine Ratio 20.0 Random Glucose 113 H Serum Osmolality 280.3 Lactic Acid Calcium 8.6 Total Bilirubin 0.5 AST 34 ALT 22 Alkaline Phosphatase 92 Troponin I B-Natriuretic Peptide Serum Total Protein 8.4 H Albumin 3.8 Globulin 4.6 H Albumin/Globulin Ratio 0.8 L 01/12/20 01/12/20 01/12/20 22:00 22:00 22:00 WBC RBC Hgb Hct MCV MCH MCHC RDW Plt Count MPV Absolute Neuts (auto) Absolute Lymphs (auto) Absolute Monos (auto) Absolute Eos (auto) Absolute Basos (auto) Neutrophils % Lymphocytes % Monocytes % Eosinophils % Basophils % PT INR PTT (SP) Sodium Potassium Chloride Carbon Dioxide Anion Gap BUN Creatinine BUN/Creatinine Ratio Random Glucose Serum Osmolality Lactic Acid 0.5 Calcium Total Bilirubin AST ALT Alkaline Phosphatase Troponin I < 0.02 B-Natriuretic Peptide 11.1 Serum Total Protein Albumin Globulin Albumin/Globulin Ratio CTA CHEST: IMPRESSION: 1. Suboptimal contrast opacification of the pulmonary arteries on this examination. No definite intra-arterial filling defects are identified within the pulmonary artery trunk or main pulmonary arteries. However, evaluation of the segmental and subsegmental pulmonary artery branches is limited for evaluation of pulmonary emboli on this study. 2. No evidence of thoracic aortic aneurysm or thoracic aortic dissection. 3. Hyperinflation of the lungs with panlobular emphysema consistent with a clinical history of alpha-1 antitrypsin deficiency. 4. Diffuse bronchiectasis with increasing patchy groundglass opacification in the upper lung zones which may be due to edema or other inflammatory process. 5. New, approximately 1.2 cm spiculated nodule in the inferior medial left lower lobe. This could represent an area of pleural parenchymal scarring. Consider a noncontrast chest CT at three months, a PET/CT or tissue sampling. 6. Increasing, mildly prominent mediastinal and left hilar lymph nodes which may be reactive inflammatory in nature. 7. Old healed rib fractures involving the posterior 11th ribs bilaterally and posterior lateral left ninth rib. These are new since the prior study. Electronically signed by: Leydi Carey DO 01/13/2020 1:47 AM - EKG/XRAY/CT Comments: ST 109, nl axis, nl intervals, no ST/T changes (Read at 2137) Procedures - Additional Procedures Progress: 12:32 AM PROCEDURE NOTE: PIV placement at the bedside under ultrasound guidance. 18-gauge catheter placed the left basilic vein on second attempt. Pain was identified using compressibility and Doppler color flow. Chlorhexidine prep. Needle was visualized into the vein under ultrasound guidance. Venous appearing blood return, flushed easily, no evidence of extravasation. Patient tolerated well. Departure - Departure Clinical Impression: COPD with acute bronchitis, [id number] deficiency, Pleuritic chest pain, Tracheostomy dependent Disposition: Discharge to SNF Condition: Fair Departure Forms: ED Discharge - Pt. Copy, Patient Portal Self Enrollment Instructions: Acute Bronchitis, Adult (DC), COPD Including Emphysema (DC) Activity: increase activity as tolerated Referrals: NAVEEN ELLIS [Primary Care Provider] - 1-2 Weeks Prescriptions: Meropenem % Sodium Chloride [Meropenem/Sodium Chloride 1 gm/50Ml] 1 inj IV Q24HR 9 Days inj Home Medications: Ambulatory Orders Acetaminophen [Tylenol] 500 mg PO Q8HRS PRN 07/19/19 Alum & Mag Hydrox-Simethicone [Mylanta] 5 ml PO Q8HRS PRN 07/19/19 Amoxicillin 500 mg PO TID 07/19/19 Arformoterol Tartrate Nebs [Brovana Nebs] 15 mcg NEB RTBID 07/19/19 Atropine 1% Ophth Briana [(None)] 5 ml SL TID 07/19/19 Budesonide (Inhalation) [Pulmicort] 0.5 mg INH BID 07/19/19 Cetirizine HCl [ZyrTEC] 10 mg PO DAILY 07/19/19 Clonazepam 1 mg PO Q8HRS 07/19/19 DULoxetine HCL [Cymbalta] 60 mg PO DAILY 07/19/19 Divalproex Sodium [Depakote Tab] 250 mg PO DAILY 07/19/19 Enoxaparin Sodium [Lovenox] 40 mg SUBCU QD 07/19/19 Furosemide 20 mg PO DAILY 07/19/19 Gabapentin 300 mg PO BID 07/19/19 HYDROcodone 10MG/APAP 325MG [[place] 10/325] 1 tab PO Q8HRS PRN 07/19/19 Ipratropium/Albuterol [Duoneb] 3 ml NEB Q6HRS PRN 07/19/19 Lactobacillus [Acidophilus] 1 cap PO DAILY 07/19/19 Lidocaine 1% 2 ml [Xylocaine] 2 ml NEB Q6HRS PRN 07/19/19 Magnesium Hydroxide [Milk Of Magnesia] 30 ml PO DAILY PRN 07/19/19 Multiple Vitamins W/ Minerals [Multivitamin Adult Extra] 1 tablet PO DAILY 07/19/19 Nitroglycerin 0.4 mg Tab [Nitrostat] 0.4 mg SL Q5MIN PRN 07/19/19 Nystatin Powder [Mycostatin] 15 gm TOP DAILY 07/19/19 Pantoprazole Tablet [Protonix] 40 mg PO ACBK 07/19/19 Potassium Chloride [Potassium Chloride ER] 10 meq PO BID 07/19/19 Promethazine HCl 25 mg PO Q6HR PRN 07/19/19 Scopolamine Patch 1.5MG [Transderm-Scop Patch] 1.5 mg TOP DAILY 07/19/19 Trazodone HCl [Trazodone Hydrochloride] 25 mg PO BEDTIME 07/19/19 Meropenem % Sodium Chloride [Meropenem/Sodium Chloride 1 gm/50Ml] 1 inj IV Q24HR 9 Days inj 01/13/20
[2020-01-12 22:57] VITALS: TEMP 96.7
[2020-01-12] MEDS ORDERED: levoFLOXacin 750MG IV 750 MG in PREMIX BAG 1 BAG IVPB ONE (22:57)
[2020-01-12] MEDS ORDERED: IPRATROPIUM/ALBUTEROL 3 ML VIAL NEB ONE (23:04)
[2020-01-12] MEDS: IPRATROPIUM/ALBUTEROL 3 ML VIAL NEB ONE (23:05)
--- NOTE | 2020-01-12 23:22 | RAD ---
EXAM DESCRIPTION: Chest,1 View CLINICAL HISTORY: 34 years Female SOB, cough , chronic bronchitis and bronchiectasis COMPARISON: 09/11/2019,, 07/08/2019 FINDINGS: Cardiac enlargement. There is dense infiltrate in the right midlung field suggesting infiltrate in the right lower lobe with associated pleural effusion. Small amount of patchy infiltrate suggested in the left lung base. There are bronchiectatic changes most notable in the right lung base. Bilateral perihilar densities. In part this appears to represent changes of bronchiectasis. IMPRESSION: There are patchy areas of infiltrate bilaterally with dense area of consolidation in the right perihilar region and right midlung field which appears new when compared to more remote studies. Changes likely reflect chronic bronchitis and bronchiectasis with possible superimposed acute infiltrate in the right lower lobe. Suspect areas of chronic infiltrate or fibrosis along the lung bases Question right effusion Tracheostomy tube in place Electronically signed by: Rita Narayan MD 01/12/2020 11:21 PM DRUG ABUSE RESISTANCE EDUCATION OFFICER
[2020-01-12] MEDS: levoFLOXacin 500 MG TAB PO ONE (23:39)
[2020-01-13] MEDS: MORPHINE SULFATE INJ 10 MG/ML VIAL IV ONE ×2 (00:11→02:43)
--- NOTE | 2020-01-13 01:49 | CT ---
EXAM: CT chest angiography with intravenous contrast CLINICAL DATA: 34-year-old female with chest pain, shortness of breath and history of alpha-1 antitrypsin deficiency. TECHNICAL DATA: Following the administration of intravenous contrast, multiple high-resolution axial images of the chest were performed followed by sagittal and coronal reconstructed images. The CT study is performed according to ALARA (as low as reasonably achievable) or ALARA/IMAGE GENTLY, with automatic adjustment of mA and/or kV according to patient size. Performed on: 01/13/2020 12:59 AM COMPARISONS: CT chest angiography performed on 05/11/2019 FINDINGS: There is suboptimal contrast opacification of the pulmonary arteries on this examination. The main pulmonary artery trunk and central pulmonary arteries enhance homogeneously without evidence of intra-arterial filling defects. However, evaluation of the segmental and subsegmental pulmonary artery branches is limited in evaluation of pulmonary emboli. The thoracic aorta is normal in caliber and contour without evidence of aneurysm or aortic dissection. The lungs are hyperinflated and demonstrate predominantly panlobular emphysema. There is an increase in the retrosternal airspace. There is diffuse bronchiectasis and there is increasing patchy groundglass opacification in the upper lung zones. There is a new spiculated nodule in the inferior medial posterior left lower lobe measuring approximately 1.2 cm in diameter. This could represent an area of pleural parenchymal scarring. There is a similar, stable finding in the right lower lobe. The heart is normal in size. There is no pericardial effusion. There are mildly prominent mediastinal and left hilar lymph nodes which appears slightly increased in size when compared to the prior study and may be reactive inflammatory in nature. No acute osseous abnormality is identified. There are old healed rib fractures posteriorly. These are new since the prior study. A tracheostomy cannula is present which terminates above the riki. The visualized upper abdominal structures are unremarkable. IMPRESSION: 1. Suboptimal contrast opacification of the pulmonary arteries on this examination. No definite intra-arterial filling defects are identified within the pulmonary artery trunk or main pulmonary arteries. However, evaluation of the segmental and subsegmental pulmonary artery branches is limited for evaluation of pulmonary emboli on this study. 2. No evidence of thoracic aortic aneurysm or thoracic aortic dissection. 3. Hyperinflation of the lungs with panlobular emphysema consistent with a clinical history of alpha-1 antitrypsin deficiency. 4. Diffuse bronchiectasis with increasing patchy groundglass opacification in the upper lung zones which may be due to edema or other inflammatory process. 5. New, approximately 1.2 cm spiculated nodule in the inferior medial left lower lobe. This could represent an area of pleural parenchymal scarring. Consider a noncontrast chest CT at three months, a PET/CT or tissue sampling. 6. Increasing, mildly prominent mediastinal and left hilar lymph nodes which may be reactive inflammatory in nature. 7. Old healed rib fractures involving the posterior 11th ribs bilaterally and posterior lateral left ninth rib. These are new since the prior study. Electronically signed by: Leydi Carey DO 01/13/2020 1:47 AM [facility]
[2020-01-13 03:23] VITALS: BP 108/73; O2SAT 94
== END 2020-01-13 03:22 ==
LOC: ER 21:21
DX: J44.0 Chronic obstructive pulmonary disease with (acute) lower respiratory infection (principal); J20.9 Acute bronchitis, unspecified; R07.1 Chest pain on breathing; E88.01 Alpha-1-antitrypsin deficiency; I50.9 Heart failure, unspecified; I11.0 Hypertensive heart disease with heart failure; Z87.81 Personal history of (healed) traumatic fracture; Z99.11 Dependence on respirator [ventilator] status; Z79.899 Other long term (current) drug therapy; Z88.6 Allergy status to analgesic agent
CPT/HCPCS: 71045; 71275; 80053; 83605; 83880; 84484; 85025; 85610; 85730; 87040; 87070; 93005; 94002; 94640; J0696; J2060; J2270; J2405; J3010; J7030; J7050; J7620

== ENCOUNTER → 2020-01-31 | Outpatient (CLI) | payer MEDICARE, MEDICAID | DX: Z20.828 Contact with and (suspected) exposure to other viral communicable diseases (principal) ==

== ENCOUNTER 2020-03-09 11:53 | Emergency (ER) | payer MEDICARE, MEDICAID ==
[2020-03-09] MEDS ORDERED: SODIUM CHLORIDE 0.9% (FLUSH) 10 ML SYG IV PRN (12:01)
[2020-03-09] MEDS ORDERED: levoFLOXacin 500MG IV 500 MG in PREMIX BAG 1 BAG IVPB ONE (12:01)
[2020-03-09] MEDS ORDERED: SODIUM CHLORIDE 0.9% 1000ML 1,000 ML IVS ONE ×2 (12:01→15:39)
[2020-03-09] MEDS ORDERED: ONDANSETRON INJ 4 MG/2 ML VIAL IV ONE (12:07)
[2020-03-09] MEDS ORDERED: fentaNYL CITRATE INJ 50 MCG/ML 2 ML AMP IV ONE ×4 (12:07→14:39)
[2020-03-09] MEDS ORDERED: levoFLOXacin 500MG IV 100 ML IVPB ONE (12:13)
--- NOTE | 2020-03-09 12:23 | ED.PDOC ---
History of Present Illness - General Chief Complaint: Respiratory Problem Stated Complaint: shortness of breath Time Seen by Provider: 03/09/20 12:00 Source: patient, RN notes reviewed, Vital Signs reviewed, EMS notes reviewed Exam Limitations: physical impairment - Tracheostomy in place, wearing mask due to coronavirus pandemic - History of Present Illness Initial Comments: This is a 34-year-old female with longstanding history of alpha-1 antitrypsin deficiency, COPD with tracheostomy dependency, mild CHF presenting to the emergency department from her alf for shortness of breath that began around 11:30 PM to midnight this morning. EMS states her O2 sats were normal on her baseline oxygen. She was answering questions and following commands in route. Patient reporting chest pain. No known fever. Temp 99.4 with EMS. She was recently transferred to [place] [facility] in December for VAP. Timing/Duration: 7-24 hours Allergies/Adverse Reactions: Allergies NSAIDs Allergy (Verified 01/14/20 09:55) Tomato Allergy (Verified 01/14/20 09:55) Home Medications: Ambulatory Orders Acetaminophen [Tylenol] 500 mg PO Q8HRS PRN 07/19/19 Arformoterol Tartrate Nebs [Brovana Nebs] 15 mcg NEB RTBID 07/19/19 Atropine 1% Ophth Briana [(None)] 5 ml SL TID 07/19/19 Budesonide (Inhalation) [Pulmicort] 0.5 mg INH BID 07/19/19 Cetirizine HCl [ZyrTEC] 10 mg PO DAILY 07/19/19 DULoxetine HCL [Cymbalta] 90 mg PO DAILY 07/19/19 Divalproex Sodium [Depakote Tab] 250 mg PO DAILY 07/19/19 HYDROcodone 10MG/APAP 325MG [Empire 10/325] 1 tab PO Q8HRS PRN 07/19/19 Ipratropium/Albuterol [Duoneb] 3 ml NEB Q6HRS PRN 07/19/19 Lactobacillus [Acidophilus] 1 cap PO DAILY 07/19/19 Magnesium Hydroxide [Milk Of Magnesia] 30 ml PO DAILY PRN 07/19/19 Multiple Vitamins W/ Minerals [Multivitamin Adult Extra] 1 tablet PO DAILY 07/19/19 Nitroglycerin 0.4 mg Tab [Nitrostat] 0.4 mg SL Q5MIN PRN 07/19/19 Potassium Chloride [Potassium Chloride ER] 10 meq PO BID 07/19/19 RX: Clonazepam 1 mg PO Q8HRS 07/19/19 RX: Furosemide 60 mg PO DAILY 07/19/19 RX: Gabapentin 600 mg PO Q8H 07/19/19 RX: Lidocaine 1% 2 ml [Xylocaine] 2 ml NEB Q6HRS PRN 07/19/19 RX: Promethazine HCl 25 mg PO Q6HR PRN 07/19/19 Scopolamine Patch 1.5MG [Transderm-Scop Patch] 1.5 mg TOP Q72H 07/19/19 Trazodone HCl [Trazodone Hydrochloride] 50 mg PO BEDTIME 07/19/19 Alum & Mag Hydrox-Simethicone [Mylanta] 30 ml PO Q8H PRN 03/09/20 Ascorbic Acid [Vitamin C] 500 mg PO DAILY 03/09/20 Pantoprazole Tablet [Protonix] 40 mg PO ACBK 03/09/20 RX: Hydroxyzine HCl 25 mg PO Q6H PRN 03/09/20 guaiFENesin 100 MG/5 ML [Robitussin] 30 ml PO TID 03/09/20 Review of Systems - Review of Systems Constitutional: Denies: chills, fever EENTM: Denies: double vision, ear pain, nose pain, nose congestion Respiratory: States: cough, short of breath. Denies: orthopnea, stridor Cardiology: Denies: chest pain, edema, palpitations Gastrointestinal/Abdominal: Denies: abdominal pain, diarrhea, nausea, vomiting Genitourinary: Denies: dysuria, hematuria Musculoskeletal: Denies: back pain, joint pain, muscle pain, muscle stiffness, neck pain Skin: Denies: change in color, lesions, rash Neurological: Denies: headache, numbness, paresthesia Endocrine: States: no symptoms reported Hematologic/Lymphatic: States: no symptoms reported Past Medical History (General) - Patient Medical History Hx Seizures: No Hx Stroke: No Hx Dementia: No Hx Asthma: No Hx of COPD: No Hx Cardiac Disorders: Yes - tachycardia Hx Congestive Heart Failure: Yes Hx Pacemaker: No Hx Hypertension: Yes Hx Thyroid Disease: No Hx Diabetes: No Hx Gastroesophageal Reflux: No Hx Renal Disease: No Hx Cancer: No Hx of HIV: No Hx Hepatitis C: No Hx MRSA: No - Vaccination History Hx Tetanus, Diphtheria Vaccination: No - patient cannot recall Hx Influenza Vaccination: Yes Hx Pneumococcal Vaccination: Yes - Social History Hx Tobacco Use: No Hx Chewing Tobacco Use: No Hx Alcohol Use: Yes Hx Substance Use: No Hx Depression: No Hx Physical Abuse: No Hx Emotional Abuse: No Hx Suspected Abuse: No - Activities of Daily Living Senior Living/Assisted Living (if applicable):: [facility] - Female History Patient : No Family Medical History - Family History Mother Family History: Unknown Physical Exam - Physical Exam General Appearance: Ill Appearing, Obese Eyes, Ears, Nose, Throat Exam: PERRL/EOMI, normal ENT inspection, other - Tr acheostomy in place, stoma appears clean, dry, intact Neck: non-tender, full range of motion Respiratory: respiratory distress - Tachypneic, increased respiratory effort, no wheezing, crackles Cardiovascular/Chest: normal peripheral pulses, no edema, tachycardia Gastrointestinal/Abdominal: non tender, soft Extremity: normal range of motion, non-tender, normal inspection, no pedal edema Neurologic: no motor/sensory deficits, alert, normal mood/affect, oriented x 3 Skin Exam: normal color, warm/dry Progress - Results/Orders Results/Orders: EKG reviewed by me at 12:12 PM. EKG shows sinus tach, rate 136, right axis, normal intervals, no ST segment elevations or depressions EXAM: CT Angiography Chest With Intravenous Contrast CLINICAL HISTORY: SOB, chest pain, tachycardia, elevated D-dimer TECHNIQUE: Axial computed tomographic angiography images of the chest with intravenous contrast. Sagittal and coronal reformatted images were created and reviewed. This CT exam was performed using one or more of the following dose reduction techniques: automated exposure control, adjustment of the mA and/or kV according to patient size, and/or use of iterative reconstruction technique. MIP reconstructed images were created and reviewed. COMPARISON: 01/13/2020. FINDINGS: Pulmonary arteries: Suboptimal contrast opacification of the pulmonary arteries on this examination. No definite intra-arterial filling defects are identified within the pulmonary artery trunk or main pulmonary arteries. However, evaluation of the segmental and subsegmental pulmonary artery branches is limited for evaluation of pulmonary emboli on this study. Aorta: No acute findings. No thoracic aortic aneurysm. Lungs: New small confluent areas of parenchymal opacification identified in both lower lobes. Generalized peribronchial nodular infiltrate and groundglass opacity slightly improved. Stable severe centrilobular emphysema bronchiectasis. Areas persistent but i mproved bronchial airspace consolidation and groundglass opacity. Pleural space: Unremarkable. No significant effusion. No pneumothorax. Heart: Unremarkable. No cardiomegaly. No significant pericardial effusion. No evidence of RV dysfunction. Bones/joints: No acute fracture. No dislocation. Soft tissues: Unremarkable. Lymph nodes: Stable mildly enlarged mediastinal and hilar lymph nodes likely reactive. Tubes, lines and devices: Tracheostomy unchanged. IMPRESSION: 1. Suboptimal contrast opacification of the pulmonary arteries on this examination. No definite intra-arterial filling defects are identified within the pulmonary artery trunk or main pulmonary arteries. However, evaluation of the segmental and subsegmental pulmonary artery branches is limited for evaluation of pulmonary emboli on this study. 2. New small confluent parenchymal infiltrates within the lower lobes concerning for pneumonia. Generalized bronchial nodular infiltrates and groundglass densities slightly improved. Electronically signed by: Mary Nelson MD 03/09/2020 2:46 PM CDT 03/09/20 12:01 Sodium Chloride 0.9% (Flush) [Saline Flush Syringe] 10 ml IV PRN PRN EKG Stat Pulse Ox Stat 03/09/20 12:43 Vancomycin HCl Inj 2,000 mg Sodium Chloride 0.9% 500Ml [NS 500ml] 500 ml IVPB ONCE 03/09/20 12:55 BLOOD CULT-AEROBIC PEDIACTRIC Stat 03/09/20 13:54 BLOOD CULTURE Stat 03/09/20 14:41 ABG [Arterial Blood Gas] Stat 03/09/20 14:46 Arterial Blood Gas Stat Laboratory Results - last 24 hr 03/09/20 03/09/20 03/09/20 12:01 12:10 12:10 WBC 11.0 H RBC 3.31 L Hgb 9.5 L Hct 30.1 L MCV 91.1 MCH 28.7 MCHC 31.6 L RDW 14.5 Plt Count 325 MPV 7.5 Absolute Neuts (auto) 7.40 H Absolute Lymphs (auto) 2.20 Absolute Monos (auto) 1.00 H Absolute Eos (auto) 0.40 Absolute Basos (auto) 0.10 Neutrophils % 66.9 Lymphocytes % 19.7 L Monocytes % 9.1 H Eosinophils % 3.8 Basophils % 0.5 PT INR PTT (SP) D-Dimer, Quantitative pCO2 96 H* pO2 94 HCO3 41.1 ABG pH 7.242 L* ABG O2 Saturation 95.9 ABG Base Excess 11.1 ABG Deoxyhemoglobin 4.0 Oxyhemoglobin % 94.3 Carboxyhemoglobin % 0.8 Methemoglobin % Sat 0.9 Calc Total Hemoglobin 9.7 L Sodium 138 Potassium 4.3 Chloride 96 L Carbon Dioxide 38 H Anion Gap 8.3 L BUN 12 Creatinine 0.70 BUN/Creatinine Ratio 17.1 Random Glucose 138 H Serum Osmolality 277.6 Lactic Acid Calcium 8.8 Total Bilirubin 0.7 AST 22 ALT 12 Alkaline Phosphatase 82 Creatine Kinase 53 CK-MB (CK-2) 1.1 CK-MB (CK-2) % Not Reportable Troponin I < 0.02 Serum Total Protein 7.9 Albumin 3.7 Globulin 4.2 H Albumin/Globulin Ratio 0.9 L Urine Color Urine Appearance Urine pH Ur Specific [place] Urine Protein Urine Glucose (UA) Urine Ketones Urine Blood Urine Nitrite Urine Bilirubin Urine Urobilinogen Ur Leukocyte Esterase Urine RBC Urine WBC Ur Epithelial Cells Urine Bacteria 03/09/20 03/09/20 03/09/20 12:10 12:10 12:56 WBC RBC Hgb Hct MCV MCH MCHC RDW Plt Count MPV Absolute Neuts (auto) Absolute Lymphs (auto) Absolute Monos (auto) Absolute Eos (auto) Absolute Basos (auto) Neutrophils % Lymphocytes % Monocytes % Eosinophils % Basophils % PT 10.7 INR 1.08 PTT (SP) 26.6 D-Dimer, Quantitative 844 H* pCO2 pO2 HCO3 ABG pH ABG O2 Saturation ABG Base Excess ABG Deoxyhemoglobin Oxyhemoglobin % Carboxyhemoglobin % Methemoglobin % Sat Calc Total Hemoglobin Sodium Potassium Chloride Carbon Dioxide Anion Gap BUN Creatinine BUN/Creatinine Ratio Random Glucose Serum Osmolality Lactic Acid 0.5 Calcium Total Bilirubin AST ALT Alkaline Phosphatase Creatine Kinase CK-MB (CK-2) CK-MB (CK-2) % Troponin I Serum Total Protein Albumin Globulin Albumin/Globulin Ratio Urine Color Yellow Urine Appearance Sl cloudy Urine pH 6.0 Ur Specific [place] 1.010 Urine Protein Negative Urine Glucose (UA) Negative Urine Ketones Negative Urine Blood Negative Urine Nitrite Negative Urine Bilirubin Negative Urine Urobilinogen 0.2 Ur Leukocyte Esterase Negative Urine RBC 0 Urine WBC 0 Ur Epithelial Cells 5-10 Urine Bacteria Rare 03/09/20 13:20 WBC RBC Hgb Hct MCV MCH MCHC RDW Plt Count MPV Absolute Neuts (auto) Absolute Lymphs (auto) Absolute Monos (auto) Absolute Eos (auto) Absolute Basos (auto) Neutrophils % Lymphocytes % Monocytes % Eosinophils % Basophils % PT INR PTT (SP) D-Dimer, Quantitative pCO2 pO2 HCO3 ABG pH ABG O2 Saturation ABG Base Excess ABG Deoxyhemoglobin Oxyhemoglobin % Carboxyhemoglobin % Methemoglobin % Sat Calc Total Hemoglobin Sodium Potassium Chloride Carbon Dioxide Anion Gap BUN Creatinine BUN/Creatinine Ratio Random Glucose Serum Osmolality Lactic Acid 1.1 Calcium Total Bilirubin AST ALT Alkaline Phosphatase Creatine Kinase CK-MB (CK-2) CK-MB (CK-2) % Troponin I Serum Total Protein Albumin Globulin Albumin/Globulin Ratio Urine Color Urine Appearance Urine pH Ur Specific [place] Urine Protein Urine Glucose (UA) Urine Ketones Urine Blood Urine Nitrite Urine Bilirubin Urine Urobilinogen Ur Leukocyte Esterase Urine RBC Urine WBC Ur Epithelial Cells Urine Bacteria MDM/ED Course: Patient longstanding history of alpha 1 antitrypsin deficiency with COPD, trach dependent. Multiple recent admissions for pneumonia and respiratory failure. She is presenting today with altered mental status, shortness of breath, chest pain. She was initially somewhat somnolent on arrival, initial PCO2 was 95. Her respiratory rate and tidal volumes were increased, PCO2 decreased to 58, mental status markedly improved. CT of her chest shows new parenchymal infiltrates compared to CT in January 2020. Previous groundglass densities were noted on prior CT are now resolved. O2 sats have been normal in the emergency department. She is afebrile. I feel COVID-19 is unlikely, but cannot completely rule it out. Testing here is a send out test and will require several hours, we will not affect our management here. She will need ICU man agement and pulmonology evaluation given her chronic lung disease. She was given Vanco/Levaquin in the emergency department, blood cultures pending. Departure - Departure Clinical Impression: Acute respiratory failure with hypercapnia, Ventilator associated pneumonia, Chronic chest pain, [id number] deficiency Disposition: Transfer to Hospital Condition: Fair Departure Forms: ED Discharge - Pt. Copy, Patient Portal Self Enrollment Referrals: NAVEEN ELLIS [Primary Care Provider] - 1-2 Weeks Home Medications: Ambulatory Orders Acetaminophen [Tylenol] 500 mg PO Q8HRS PRN 07/19/19 Arformoterol Tartrate Nebs [Brovana Nebs] 15 mcg NEB RTBID 07/19/19 Atropine 1% Ophth Briana [(None)] 5 ml SL TID 07/19/19 Budesonide (Inhalation) [Pulmicort] 0.5 mg INH BID 07/19/19 Cetirizine HCl [ZyrTEC] 10 mg PO DAILY 07/19/19 DULoxetine HCL [Cymbalta] 90 mg PO DAILY 07/19/19 Divalproex Sodium [Depakote Tab] 250 mg PO DAILY 07/19/19 HYDROcodone 10MG/APAP 325MG [Empire 10/325] 1 tab PO Q8HRS PRN 07/19/19 Ipratropium/Albuterol [Duoneb] 3 ml NEB Q6HRS PRN 07/19/19 Lactobacillus [Acidophilus] 1 cap PO DAILY 07/19/19 Magnesium Hydroxide [Milk Of Magnesia] 30 ml PO DAILY PRN 07/19/19 Multiple Vitamins W/ Minerals [Multivitamin Adult Extra] 1 tablet PO DAILY 07/19/19 Nitroglycerin 0.4 mg Tab [Nitrostat] 0.4 mg SL Q5MIN PRN 07/19/19 Potassium Chloride [Potassium Chloride ER] 10 meq PO BID 07/19/19 RX: Clonazepam 1 mg PO Q8HRS 07/19/19 RX: Furosemide 60 mg PO DAILY 07/19/19 RX: Gabapentin 600 mg PO Q8H 07/19/19 RX: Lidocaine 1% 2 ml [Xylocaine] 2 ml NEB Q6HRS PRN 07/19/19 RX: Promethazine HCl 25 mg PO Q6HR PRN 07/19/19 Scopolamine Patch 1.5MG [Transderm-Scop Patch] 1.5 mg TOP Q72H 07/19/19 Trazodone HCl [Trazodone Hydrochloride] 50 mg PO BEDTIME 07/19/19 Alum & Mag Hydrox-Simethicone [Mylanta] 30 ml PO Q8H PRN 03/09/20 Ascorbic Acid [Vitamin C] 500 mg PO DAILY 03/09/20 Pantoprazole Tablet [Protonix] 40 mg PO ACBK 03/09/20 RX: Hydroxyzine HCl 25 mg PO Q6H PRN 03/09/20 guaiFENesin 100 MG/5 ML [Robitussin] 30 ml PO TID 03/09/20 Critical Care Note - Critical Care Note Total Time (mins): 36 Comments: Acute on chronic respiratory failure with severe hypercapnia and altered mental status. Time spent reviewing labs, documentation, reviewing old records, examination of the patient And multiple rechecks, vent management, reviewing imaging and old imaging. Patient has acute hypercarbic respiratory failure, ventilator associated pneumonia, concern for possible sepsis.
[2020-03-09] MEDS ORDERED: VANCOMYCIN HCL INJ 2,000 MG in SODIUM CHLORIDE 0.9% 500ML 500 ML IVPB ONE (12:43)
[2020-03-09] MEDS ORDERED: methylPREDNISolone SODIUM SUC 125 MG/2 ML VIAL IV ONE (13:19)
[2020-03-09] MEDS ORDERED: VANCOMYCIN HCL INJ 1,000 MG VIAL IVPB ONE (14:07)
[2020-03-09] MEDS ORDERED: SODIUM CHLORIDE 0.9% 500ML 500 ML ONE (14:07)
--- NOTE | 2020-03-09 14:48 | CT ---
EXAM: CT Angiography Chest With Intravenous Contrast CLINICAL HISTORY: SOB, chest pain, tachycardia, elevated D-dimer TECHNIQUE: Axial computed tomographic angiography images of the chest with intravenous contrast. Sagittal and coronal reformatted images were created and reviewed. This CT exam was performed using one or more of the following dose reduction techniques: automated exposure control, adjustment of the mA and/or kV according to patient size, and/or use of iterative reconstruction technique. MIP reconstructed images were created and reviewed. COMPARISON: 01/13/2020. FINDINGS: Pulmonary arteries: Suboptimal contrast opacification of the pulmonary arteries on this examination. No definite intra-arterial filling defects are identified within the pulmonary artery trunk or main pulmonary arteries. However, evaluation of the segmental and subsegmental pulmonary artery branches is limited for evaluation of pulmonary emboli on this study. Aorta: No acute findings. No thoracic aortic aneurysm. Lungs: New small confluent areas of parenchymal opacification identified in both lower lobes. Generalized peribronchial nodular infiltrate and groundglass opacity slightly improved. Stable severe centrilobular emphysema bronchiectasis. Areas persistent but improved bronchial airspace consolidation and groundglass opacity. Pleural space: Unremarkable. No significant effusion. No pneumothorax. Heart: Unremarkable. No cardiomegaly. No significant pericardial effusion. No evidence of RV dysfunction. Bones/joints: No acute fracture. No dislocation. Soft tissues: Unremarkable. Lymph nodes: Stable mildly enlarged mediastinal and hilar lymph nodes likely reactive. Tubes, lines and devices: Tracheostomy unchanged. IMPRESSION: 1. Suboptimal contrast opacification of the pulmonary arteries on this examination. No definite intra-arterial filling defects are identified within the pulmonary artery trunk or main pulmonary arteries. However, evaluation of the segmental and subsegmental pulmonary artery branches is limited for evaluation of pulmonary emboli on this study. 2. New small confluent parenchymal infiltrates within the lower lobes concerning for pneumonia. Generalized bronchial nodular infiltrates and groundglass densities slightly improved. Electronically signed by: Mary Nelson MD 03/09/2020 2:46 PM CDT
[2020-03-09 17:07] VITALS: BP 126/78; TEMP 97.8; O2SAT 99
== END 2020-03-09 17:09 | disposition short-term general hospital (02) ==
LOC: ER 11:53
DX: J96.02 Acute respiratory failure with hypercapnia (principal); J95.851 Ventilator associated pneumonia; R07.9 Chest pain, unspecified; E88.01 Alpha-1-antitrypsin deficiency; E66.9 Obesity, unspecified; J44.9 Chronic obstructive pulmonary disease, unspecified; Z93.0 Tracheostomy status; I50.9 Heart failure, unspecified; I10 Essential (primary) hypertension; Z79.899 Other long term (current) drug therapy
CPT/HCPCS: 36600; 71275; 80053; 81001; 82550; 82553; 82803; 82805; 83605; 84484; 85025; 85379; 85610; 85730; 87040; 93005; 94002; 94760; J1956; J2405; J2930; J3010; J3370; J7030; J7040

== ENCOUNTER 2020-03-21 01:22 | Emergency (ER) | payer MEDICARE, MEDICAID ==
[2020-03-21] MEDS ORDERED: SODIUM CHLORIDE 0.9% 1000ML 1,000 ML IVS ONE (01:44)
[2020-03-21] MEDS ORDERED: SODIUM CHLORIDE 0.9% (FLUSH) 10 ML SYG IV PRN (01:44)
[2020-03-21] MEDS ORDERED: CEFEPIME 2 GM in SODIUM CHL 0.9% 100ML MINI-BAG 100 ML IVPB ONE (01:46)
[2020-03-21] MEDS ORDERED: VANCOMYCIN HCL INJ 1,000 MG in SODIUM CHLORIDE 0.9% 250ML 250 ML IVPB ONE (01:47)
[2020-03-21] MEDS ORDERED: IPRATROPIUM/ALBUTEROL 3 ML VIAL INH ONE (01:48)
[2020-03-21] MEDS ORDERED: methylPREDNISolone SODIUM SUC 125 MG/2 ML VIAL IV ONE (01:50)
[2020-03-21] MEDS ORDERED: SODIUM CHLORIDE 0.9% 500ML 500 ML IVS ONE (01:51)
[2020-03-21] MEDS ORDERED: ACETAMINOPHEN 500 MG TAB PO ONE (01:58)
[2020-03-21] MEDS ORDERED: VANCOMYCIN HCL INJ 1,000 MG VIAL IVPB ONE (02:01)
[2020-03-21] MEDS ORDERED: CEFEPIME 2 GM VIAL ONE (02:01)
[2020-03-21] MEDS ORDERED: SODIUM CHL 0.9% 100ML MINI-BAG 100 ML IVPB ONE (02:01)
[2020-03-21] MEDS ORDERED: SODIUM CHLORIDE 0.9% 250ML 250 ML ONE (02:02)
--- NOTE | 2020-03-21 02:09 | ED.PDOC ---
History of Present Illness - General Chief Complaint: Respiratory Problem Stated Complaint: Low Sats and high C02 Time Seen by Provider: 03/21/20 01:40 Source: patient, RN notes reviewed, Vital Signs reviewed, EMS notes reviewed Exam Limitations: clinical condition Additional Information: 34yo F with longstanding history of alpha-1 antitrypsin deficiency, COPD with tracheostomy dependency, mild CHF presenting to the emergency department from her assisted for shortness of breath, chest pain, and reported elevated EtCO2. EMS states EtCO2 was 90s with SpO2 in 70s on arrival. She was answering questions and following commands in route. Patient reporting chest pain. No known fever. Temp 99.4 with EMS. She was recently transferred to [place] in February for similar. - History of Present Illness Allergies/Adverse Reactions: Allergies NSAIDs Allergy (Verified 01/14/20 09:55) Tomato Allergy (Verified 01/14/20 09:55) Home Medications: Ambulatory Orders Acetaminophen [Tylenol] 500 mg PO Q8HRS PRN 07/19/19 Arformoterol Tartrate Nebs [Brovana Nebs] 15 mcg NEB RTBID 07/19/19 Atropine 1% Ophth Briana [(None)] 5 ml SL TID 07/19/19 Budesonide (Inhalation) [Pulmicort] 0.5 mg INH BID 07/19/19 Cetirizine HCl [ZyrTEC] 10 mg PO DAILY 07/19/19 Clonazepam 1 mg PO Q8HRS 07/19/19 DULoxetine HCL [Cymbalta] 90 mg PO DAILY 07/19/19 Divalproex Sodium [Depakote Tab] 250 mg PO DAILY 07/19/19 Furosemide 60 mg PO DAILY 07/19/19 Gabapentin 600 mg PO Q8H 07/19/19 HYDROcodone 10MG/APAP 325MG [[place] 10/325] 1 tab PO Q8HRS PRN 07/19/19 Ipratropium/Albuterol [Duoneb] 3 ml NEB Q6HRS PRN 07/19/19 Lactobacillus [Acidophilus] 1 cap PO DAILY 07/19/19 Lidocaine 1% 2 ml [Xylocaine] 2 ml NEB Q6HRS PRN 07/19/19 Magnesium Hydroxide [Milk Of Magnesia] 30 ml PO DAILY PRN 07/19/19 Multiple Vitamins W/ Minerals [Multivitamin Adult Extra] 1 tablet PO DAILY 07/19/19 Nitroglycerin 0.4 mg Tab [Nitrostat] 0.4 mg SL Q5MIN PRN 07/19/19 Potassium Chloride [Potassium Chloride ER] 10 meq PO BID 07/19/19 Promethazine HCl 25 mg PO Q6HR PRN 07/19/19 Scopolamine Patch 1.5MG [Transderm-Scop Patch] 1.5 mg TOP Q72H 07/19/19 Trazodone HCl [Trazodone Hydrochloride] 50 mg PO BEDTIME 07/19/19 Alum & Mag Hydrox-Simethicone [Mylanta] 30 ml PO Q8H PRN 03/09/20 Ascorbic Acid [Vitamin C] 500 mg PO DAILY 03/09/20 Hydroxyzine HCl 25 mg PO Q6H PRN 03/09/20 Pantoprazole Tablet [Protonix] 40 mg PO ACBK 03/09/20 guaiFENesin 100 MG/5 ML [Robitussin] 30 ml PO TID 03/09/20 Levofloxacin [Levaquin] 750 mg PO DAILY #5 tablet 03/21/20 Prednisone 40 mg PO DAILY #8 tab 03/21/20 Review of Systems - Review of Systems Cardiology: States: chest pain Unable to Obtain Due To: condition Past Medical History (General) - Patient Medical History Hx Seizures: No Hx Stroke: No Hx Dementia: No Hx Asthma: No Hx of COPD: No Hx Cardiac Disorders: Yes - tachycardia Hx Congestive Heart Failure: Yes Hx Pacemaker: No Hx Hypertension: Yes Hx Thyroid Disease: No Hx Diabetes: No Hx Gastroesophageal Reflux: No Hx Renal Disease: No Hx Cancer: No Hx of HIV: No Hx Hepatitis C: No Hx MRSA: No - Vaccination History Hx Tetanus, Diphtheria Vaccination: No - patient cannot recall Hx Influenza Vaccination: Yes Hx Pneumococcal Vaccination: Yes Immunizations Up to Date: Yes - Social History Hx Tobacco Use: No Hx Chewing Tobacco Use: No Hx Alcohol Use: Yes Hx Substance Use: No Hx Substance Use Treatment: No Hx Depression: No Feels Threatened In Home Enviroment: No Feels Threatened In a Relationship: No Hx Physical Abuse: No Hx Emotional Abuse: No Hx Suspected Abuse: No - Activities of Daily Living Shelter/Assisted Living (if applicable):: [facility] (if applicable):: None - Female History Patient is a Female of Child Bearing Age (10 -59 yrs old): Yes Patient : No Family Medical History - Family History Mother Family History: Unknown Physical Exam - Physical Exam General Appearance: Anxious, Obese, Well Developed Eyes, Ears, Nose, Throat Exam: PERRL/EOMI Neck: other - tracheostomy in place with no erythema or discharge present Respiratory: chest non-tender, rhonchi, wheezing, expiration, other - On ventilator through tracheostomy Cardiovascular/Chest: no edema, no murmur - regular rhythm, tachycardia Gastrointestinal/Abdominal: non tender, soft Extremity: no calf tenderness, pedal edema - 1+non-pitting, pain with palpation RLE with no noted assymetrical edema but small amount of erythema on lateral aspect of leg with no flunctance or crepitus Neurologic: associate consulting engineer II-XII nml as tested Skin Exam: normal color, warm/dry Progress - Progress Progress: 03/21/20 02:12 34yo F with longstanding history of alpha-1 antitrypsin deficiency, COPD with tracheostomy dependency, mild CHF with elevated EtCO2, SOB, and chest pain. SpO2 80s on arrival with EtCO2 in 70s, unclear baseline. It appears she has had recurrent episodes of same, most recently approximately 2 weeks ago. She continues to be treated with levaquin at care facility (per their MAR). Suctioned with minimal improvement on arrival. Unclear etiology of recurrence, though persistent VAP, COPD, pericarditis, ACS, PE, FREDDY/OHS considerations. Does not clinically appear pneumothorax at this time. Although lower suspicion for COVID, she did have recent hospitalization and is a SNF patient but had a negative COVID test 3 days ago. Plan for labs, imaging, pain control PRN, and reassess. 03/21/20 02:56 03/21/20 03:10 Patient awake, alert, refusing any transfer at this time. Plan for recheck ABG after nebs/steroids (unclear if first truly arterial, as SpO2 upper 90s at time of draw). D-dimer improved, negative for PE on last eval, lower suspicion for PE at this time. 03/21/20 03:15 Patient was requested return to facility immediately, but after further discussion regarding repeat troponin testing for cardiac rule-out, she agreed to stay for additional laboratory testing. She did continue to refuse transfer after discussion of risks/benefits/alternatives. She was awake, alert, no distress, breathing improved, clinically sober, and voiced understanding to discussion of care and implications of transfer refusal. 03/21/20 04:36 After reassessment, patient easily arousable, no distress, not tachycardic (heart rate 84 on my reassessment). Vent changed to SIMV rate 24, TV 480, 10/5, 35% rather than her initial AC mode on arrival. Repeat ABG appears with mostly compensated chronic respiratory acidosis. No AGMA noted, lactic acid unremarkable, CXR without changes, no fever or leukocytosis. Patient updated. She was in no distress, EtCO2 now 40s, FiO2 35 with SpO2 mid 90s. It appears this is likely very close to her chronic state. I have discussed labs, imaging, clinical course extensively with patient. She continued to refuse transfer and requested return to nursing facility. At this point, if she continues aggressive COPD treatment and pulmonary toilet, I feel this is a reasonable request. I have spoken with her and nursing facility extensively, relayed need for continued COPD treatment and aggressive pulmonary toilet, and that, if she develops change in condition or new/worsening symptoms, she should return immediately. She has nebulizer therapies available at care facility, however, will extend course of levaquin for most recent exacerbation. Patient voiced agreement and understanding to plan of care. ED warnings given. 03/21/20 04:51 Kayode Bruner MD #[id number] - EKG/XRAY/CT EKG: Sinus, Changed from - more pronounced inferior MT depressions from 03/09/20 Comments: 0201 NSR rate of 89, right axis, normal intervals, inferior MT depressions Departure - Departure Clinical Impression: COPD with exacerbation, Pleuritic chest pain, Tracheostomy dependent, Mucus plugging of bronchi Time of Disposition: 04:49 Disposition: Discharge to SNF Condition: Fair Departure Forms: ED Discharge - Pt. Copy, Patient Portal Self Enrollment Instructions: DI for Respiratory Failure, Exacerbation of COPD (DC), How to Care for a Tracheostomy Diet: resume usual diet Referrals: NAVEEN ELLIS [Primary Care Provider] - 1-2 Days [facility] [place], EMERGENCY DEPARTMENT [Other] - 1-2 Days ( NEEDED) Prescriptions: Levofloxacin [Levaquin] 750 mg PO DAILY #5 tablet Prednisone 40 mg PO DAILY #8 tab Home Medications: Ambulatory Orders Acetaminophen [Tylenol] 500 mg PO Q8HRS PRN 07/19/19 Arformoterol Tartrate Nebs [Brovana Nebs] 15 mcg NEB RTBID 07/19/19 Atropine 1% Ophth Briana [(None)] 5 ml SL TID 07/19/19 Budesonide (Inhalation) [Pulmicort] 0.5 mg INH BID 07/19/19 Cetirizine HCl [ZyrTEC] 10 mg PO DAILY 07/19/19 Clonazepam 1 mg PO Q8HRS 07/19/19 DULoxetine HCL [Cymbalta] 90 mg PO DAILY 07/19/19 Divalproex Sodium [Depakote Tab] 250 mg PO DAILY 07/19/19 Furosemide 60 mg PO DAILY 07/19/19 Gabapentin 600 mg PO Q8H 07/19/19 HYDROcodone 10MG/APAP 325MG [[place] 10/325] 1 tab PO Q8HRS PRN 07/19/19 Ipratropium/Albuterol [Duoneb] 3 ml NEB Q6HRS PRN 07/19/19 Lactobacillus [Acidophilus] 1 cap PO DAILY 07/19/19 Lidocaine 1% 2 ml [Xylocaine] 2 ml NEB Q6HRS PRN 07/19/19 Magnesium Hydroxide [Milk Of Magnesia] 30 ml PO DAILY PRN 07/19/19 Multiple Vitamins W/ Minerals [Multivitamin Adult Extra] 1 tablet PO DAILY 07/19/19 Nitroglycerin 0.4 mg Tab [Nitrostat] 0.4 mg SL Q5MIN PRN 07/19/19 Potassium Chloride [Potassium Chloride ER] 10 meq PO BID 07/19/19 Promethazine HCl 25 mg PO Q6HR PRN 07/19/19 Scopolamine Patch 1.5MG [Transderm-Scop Patch] 1.5 mg TOP Q72H 07/19/19 Trazodone HCl [Trazodone Hydrochloride] 50 mg PO BEDTIME 07/19/19 Alum & Mag Hydrox-Simethicone [Mylanta] 30 ml PO Q8H PRN 03/09/20 Ascorbic Acid [Vitamin C] 500 mg PO DAILY 03/09/20 Hydroxyzine HCl 25 mg PO Q6H PRN 03/09/20 Pantoprazole Tablet [Protonix] 40 mg PO ACBK 03/09/20 guaiFENesin 100 MG/5 ML [Robitussin] 30 ml PO TID 03/09/20 Levofloxacin [Levaquin] 750 mg PO DAILY #5 tablet 03/21/20 Prednisone 40 mg PO DAILY #8 tab 03/21/20 Critical Care Note - Critical Care Note Total Time (mins): 45 Comments: MULTIPLE RE-EVALUATIONS, RESPIRATORY FAILURE, NEED FOR TIME-CRITICAL RESPIRATORY INTERVENTIONS, AND CRITICAL NATURE OF COMPLAINT
--- NOTE | 2020-03-21 02:11 | RAD ---
CLINICAL HISTORY: SOB COMPARISON: 01/26/2020. TECHNIQUE: XR CHEST 1 VIEW 03/21/2020 1:44 AM CDT FINDINGS: The heart is mildly enlarged. There are moderate interstitial opacities in the mid and lower lungs. There are small pleural effusions. There is no pneumothorax. There are no acute osseous findings. Tracheostomy is unchanged. IMPRESSION: No change. Electronically signed by: Fernando Nunez MD 03/21/2020 2:10 AM CDT
[2020-03-21] MEDS ORDERED: NEOMYCIN-BACITRACIN-POLYMYXIN 0.9 GM UD TOP ONE (03:22)
[2020-03-21 05:15] VITALS: BP 113/69; TEMP 97.4; O2SAT 94
[2020-03-21] MEDS ORDERED: NEOMYCIN-BACITRACIN-POLYMYXIN 0.9 GM UD TOP SCH (09:00)
== END 2020-03-21 05:10 ==
LOC: ER 01:22
DX: J44.1 Chronic obstructive pulmonary disease with (acute) exacerbation (principal); R07.81 Pleurodynia; E66.9 Obesity, unspecified; E88.01 Alpha-1-antitrypsin deficiency; I10 Essential (primary) hypertension; Z93.0 Tracheostomy status; Z79.52 Long term (current) use of systemic steroids
CPT/HCPCS: 36415; 36600; 71045; 80053; 80164; 82550; 82553; 82803; 82805; 83605; 83880; 84484; 84703; 85025; 85379; 85610; 85730; 87040; 93005; 94002; 94640; 94770; J0692; J2930; J3370; J7030; J7040; J7050; J7620

== ENCOUNTER 2020-04-10 13:40 | Emergency (ER) | payer MEDICARE, MEDICAID ==
[2020-04-10] MEDS ORDERED: SODIUM CHLORIDE 0.9% (FLUSH) 10 ML SYG IV PRN (13:56)
[2020-04-10 14:06] VITALS: TEMP 97.8
[2020-04-10] MEDS ORDERED: MORPHINE SULFATE INJ 10 MG/ML VIAL IV ONE ×2 (14:14→15:47)
[2020-04-10] MEDS ORDERED: ONDANSETRON INJ 4 MG/2 ML VIAL IV ONE (14:14)
--- NOTE | 2020-04-10 15:04 | RAD ---
EXAM DESCRIPTION: Chest,1 View CLINICAL HISTORY: chest pain COMPARISON: Chest x-ray March 21, 2020. CT of the chest March 09, 2020. FINDINGS: 1 view chest. Tracheostomy tube projects in satisfactory position of the trachea. 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 No new/acute consolidation is demonstrated. No pneumothorax. Heart and mediastinum is normal. IMPRESSION: No new/acute cardiopulmonary disease process Chronic findings described above. Electronically signed by: rOtega Guallpa MD 04/10/2020 3:03 PM CDT
--- NOTE | 2020-04-10 15:59 | ED.PDOC ---
History of Present Illness - General Chief Complaint: Respiratory Problem Stated Complaint: sob Time Seen by Provider: 04/10/20 13:52 Source: patient, RN notes reviewed, Vital Signs reviewed, longterm records Exam Limitations: no limitations - History of Present Illness Initial Comments: Patient is a 34-year-old woman who is a resident of a [facility] unit here in [place]. She has a degenerative lung disease. Patient presents today with complaints of chest pain and shortness of breath. The pain is sharp in nature. Worse with cough. Cough is productive for thick yellow sputum. Patient denies any fever or chills. Timing/Duration: other - A few days Severity: moderate Improving Factors: nothing Worsening Factors: other - Cough Associated Symptoms: chest pain, cough, shortness of breath Allergies/Adverse Reactions: Allergies NSAIDs Allergy (Verified 04/10/20 14:03) Tomato Allergy (Verified 04/10/20 14:03) Home Medications: Ambulatory Orders Acetaminophen [Tylenol] 500 mg PO Q8HRS PRN 07/19/19 Arformoterol Tartrate Nebs [Brovana Nebs] 15 mcg NEB RTBID 07/19/19 Atropine 1% Ophth Briana [(None)] 5 ml SL TID 07/19/19 Budesonide (Inhalation) [Pulmicort] 0.5 mg INH BID 07/19/19 Cetirizine HCl [ZyrTEC] 10 mg PO DAILY 07/19/19 Clonazepam 1 mg PO Q8HRS 07/19/19 DULoxetine HCL [Cymbalta] 90 mg PO DAILY 07/19/19 Divalproex Sodium [Depakote Tab] 250 mg PO DAILY 07/19/19 Furosemide 60 mg PO DAILY 07/19/19 Gabapentin 600 mg PO Q8H 07/19/19 HYDROcodone 10MG/APAP 325MG [[place] 10/325] 1 tab PO Q8HRS PRN 07/19/19 Ipratropium/Albuterol [Duoneb] 3 ml NEB Q6HRS PRN 07/19/19 Lactobacillus [Acidophilus] 1 cap PO DAILY 07/19/19 Lidocaine 1% 2 ml [Xylocaine] 2 ml NEB Q6HRS PRN 07/19/19 Magnesium Hydroxide [Milk Of Magnesia] 30 ml PO DAILY PRN 07/19/19 Multiple Vitamins W/ Minerals [Multivitamin Adult Extra] 1 tablet PO DAILY 07/19/19 Nitroglycerin 0.4 mg Tab [Nitrostat] 0.4 mg SL Q5MIN PRN 07/19/19 Potassium Chloride [Potassium Chloride ER] 10 meq PO BID 07/19/19 Promethazine HCl 25 mg PO Q6HR PRN 07/19/19 Scopolamine Patch 1.5MG [Transderm-Scop Patch] 1.5 mg TOP Q72H 07/19/19 Trazodone HCl [Trazodone Hydrochloride] 50 mg PO BEDTIME 07/19/19 Alum & Mag Hydrox-Simethicone [Mylanta] 30 ml PO Q8H PRN 03/09/20 Ascorbic Acid [Vitamin C] 500 mg PO DAILY 03/09/20 Hydroxyzine HCl 25 mg PO Q6H PRN 03/09/20 Pantoprazole Tablet [Protonix] 40 mg PO ACBK 03/09/20 guaiFENesin 100 MG/5 ML [Robitussin] 30 ml PO TID 03/09/20 Levofloxacin [Levaquin] 750 mg PO DAILY #5 tablet 03/21/20 Prednisone 40 mg PO DAILY #8 tab 03/21/20 Review of Systems - Review of Systems Constitutional: States: no symptoms reported, see HPI. Denies: chills, fever, malaise, weakness EENTM: States: no symptoms reported. Denies: throat pain, throat swelling Respiratory: States: see HPI, cough, short of breath. Denies: wheezing Cardiology: States: see HPI, chest pain. Denies: palpitations, syncope Gastrointestinal/Abdominal: States: no symptoms reported. Denies: abdominal pain, diarrhea, nausea Genitourinary: States: no symptoms reported, discharge. Denies: dysuria Musculoskeletal: States: no symptoms reported. Denies: back pain, neck pain Skin: States: no symptoms reported. Denies: change in color, rash Neurological: States: no symptoms reported. Denies: numbness, weakness Endocrine: States: no symptoms reported Hematologic/Lymphatic: States: no symptoms reported All other Systems: No Change from Baseline Past Medical History (General) - Patient Medical History Hx Seizures: No Hx Stroke: No Hx Dementia: No Hx Asthma: No Hx of COPD: No Hx Cardiac Disorders: Yes - tachycardia Hx Congestive Heart Failure: Yes Hx Pacemaker: No Hx Hypertension: Yes Hx Thyroid Disease: No Hx Diabetes: No Hx Gastroesophageal Reflux: No Hx Renal Disease: No Hx Cancer: No Hx of HIV: No Hx Hepatitis C: No Hx MRSA: No Surgical History: other - Vaccination History Hx Tetanus, Diphtheria Vaccination: No - patient cannot recall Hx Influenza Vaccination: Yes Hx Pneumococcal Vaccination: Yes - Social History Hx Tobacco Use: No Hx Chewing Tobacco Use: No Hx Alcohol Use: Yes Hx Substance Use: No Hx Substance Use Treatment: No Hx Depression: No Hx Physical Abuse: No Hx Emotional Abuse: No Hx Suspected Abuse: No - Activities of Daily Living Snf/Assisted Living (if applicable):: [facility] (if applicable):: None - Female History Patient : No Family Medical History - Family History Mother Family History: Unknown Physical Exam - Physical Exam General Appearance: Alert, Anxious, Obvious distress, Well Developed, Well Groomed, Well Hydrated, Well Nourished Eye Exam: bilateral normal Ears, Nose, Throat: hearing grossly normal, normal ENT inspection, normal pharynx Neck: non-tender, full range of motion, supple, other - Trach in place with yellow thick sputum at the trach opening. Respiratory: chest non-tender, respiratory distress - Mild, decreased breath sounds - On the right lower lobe, rhonchi - Diffusely throughout Cardiovascular/Chest: normal peripheral pulses, regular rate, rhythm, no edema Peripheral Pulses: radial,right: 2+, radial,left: 2+ Gastrointestinal/Abdominal: normal bowel sounds, non tender, soft Back Exam: normal inspection, no CVA tenderness, no vertebral tenderness Extremity: normal inspection Neurologic: property preservation specialist II-XII nml as tested, no motor/sensory deficits, alert, normal mood/affect, oriented x 3 Skin Exam: normal color, warm/dry Lymphatic: no adenopathy Progress - Progress Progress: Differential diagnosis: Pneumonia, viral URI, acute coronary syndrome, pneumothorax among others. 04/10/20 16:08 Patient's chest x-ray is essentially unchanged per radiology report. Labs are relatively unremarkable. Patient's pain improved with IV morphine. Additionally, her shortness of breath has resolved after multiple breathing treatments and deep suctioning of thick sputum. Plan on discharge back to the LTAC. I have discussed this plan of care with the patient she voices understanding and agreement with the plan of care. Artemio Jones M.D. #[id number] - Results/Orders Results/Orders: 04/10/20 13:56 IV Care:Saline Lock per Protoc QSHIFT Telemetry ONCE Sodium Chloride 0.9% (Flush) [Saline Flush Syringe] 3 ml IV PRN PRN EKG Assessment ONCE Pulse Oximetry Assessment DAILY 04/10/20 14:00 EKG STAT 04/10/20 14:06 ABG [Arterial Blood Gas] Stat 04/10/20 14:10 CARDIAC PANEL,ER Stat HEPATIC FUNCTION PANEL Stat SPUTUM CULTURE Stat 04/10/20 14:11 SPUTUM CULTURE Stat 04/10/20 15:14 BLOOD CULTURE Stat 04/11/20 09:00 Pulse Ox Daily Laboratory Results - last 24 hr 04/10/20 04/10/20 14:10 14:10 WBC 6.9 RBC 3.10 L Hgb 9.3 L Hct 28.7 L MCV 92.9 MCH 29.9 MCHC 32.2 L RDW 15.2 H Plt Count 200 MPV 7.7 Absolute Neuts (auto) 5.10 Absolute Lymphs (auto) 0.90 L Absolute Monos (auto) 0.60 Absolute Eos (auto) 0.30 Absolute Basos (auto) 0.00 Neutrophils % 73.1 Lymphocytes % 13.2 L Monocytes % 9.2 H Eosinophils % 4.3 Basophils % 0.2 PT 11.3 H INR 1.14 PTT (SP) 26.2 D-Dimer, Quantitative 741 H* Sodium 139 Potassium 4.0 Chloride 97 L Carbon Dioxide 35 H Anion Gap 11.0 L BUN 12 Creatinine 0.74 BUN/Creatinine Ratio 16.2 Random Glucose 102 Serum Osmolality 277.5 Calcium 8.6 Magnesium 2.0 Total Bilirubin 0.6 Direct Bilirubin 0.1 Indirect Bilirubin 0.5 AST 24 ALT 27 Alkaline Phosphatase 96 Creatine Kinase 74 CK-MB (CK-2) 1.8 Troponin I < 0.02 Serum Total Protein 7.4 Albumin 3.5 EKG performed on 10 Apr 2020 at 1351 hrs.: Sinus tachycardia at 102 bpm, right axis deviation, no ST or T wave changes, borderline EKG. EXAM DESCRIPTION: Chest,1 View CLINICAL HISTORY: chest pain COMPARISON: Chest x-ray March 21, 2020. CT of the chest March 09, 2020. FINDINGS: 1 view chest. Tracheostomy tube projects in satisfactory position of the trachea. 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 No new/acute consolidation is demonstrated. No pneumothorax. Heart and mediastinum is normal. IMPRESSION: No new/acute cardiopulmonary disease process Chronic findings described above. Electronically signed by: Ortega Guallpa MD 04/10/2020 3:03 PM Vital Signs 04/10/20 04/10/20 04/10/20 13:44 14:09 14:40 Temperature 97.8 F Pulse Rate [ 104 H 106 H pulse ox] Respiratory 20 16 24 Rate Blood Pressure 170/106 112/75 [Right Arm] O2 Sat by Pulse 96 95 Oximetry 04/10/20 15:40 Temperature Pulse Rate [ 90 pulse ox] Respiratory 24 Rate Blood Pressure 122/79 [Right Arm] O2 Sat by Pulse 100 Oximetry Departure - Departure Clinical Impression: Chest pain Qualifiers: Chest pain type: unspecified Qualified Code(s): R07.9 - Chest pain, unspecified Dyspnea Qualifiers: Dyspnea type: other forms of dyspnea Qualified Code(s): R06.09 - Other forms of dyspnea Time of Disposition: 16:10 Disposition: Discharge to SNF Condition: Fair Departure Forms: ED Discharge - Pt. Copy, Patient Portal Self Enrollment Instructions: Chest Pain That Is Not Caused by the Heart (DC), Shortness of Breath (Dyspnea) (DC) Diet: resume usual diet Activity: increase activity as tolerated Referrals: NAVEEN ELLIS [Primary Care Provider] - 1-5 Days Home Medications: Ambulatory Orders Acetaminophen [Tylenol] 500 mg PO Q8HRS PRN 07/19/19 Arformoterol Tartrate Nebs [Brovana Nebs] 15 mcg NEB RTBID 07/19/19 Atropine 1% Ophth Briana [(None)] 5 ml SL TID 07/19/19 Budesonide (Inhalation) [Pulmicort] 0.5 mg INH BID 07/19/19 Cetirizine HCl [ZyrTEC] 10 mg PO DAILY 07/19/19 Clonazepam 1 mg PO Q8HRS 07/19/19 DULoxetine HCL [Cymbalta] 90 mg PO DAILY 07/19/19 Divalproex Sodium [Depakote Tab] 250 mg PO DAILY 07/19/19 Furosemide 60 mg PO DAILY 07/19/19 Gabapentin 600 mg PO Q8H 07/19/19 HYDROcodone 10MG/APAP 325MG [[place] 10/325] 1 tab PO Q8HRS PRN 07/19/19 Ipratropium/Albuterol [Duoneb] 3 ml NEB Q6HRS PRN 07/19/19 Lactobacillus [Acidophilus] 1 cap PO DAILY 07/19/19 Lidocaine 1% 2 ml [Xylocaine] 2 ml NEB Q6HRS PRN 07/19/19 Magnesium Hydroxide [Milk Of Magnesia] 30 ml PO DAILY PRN 07/19/19 Multiple Vitamins W/ Minerals [Multivitamin Adult Extra] 1 tablet PO DAILY 07/19/19 Nitroglycerin 0.4 mg Tab [Nitrostat] 0.4 mg SL Q5MIN PRN 07/19/19 Potassium Chloride [Potassium Chloride ER] 10 meq PO BID 07/19/19 Promethazine HCl 25 mg PO Q6HR PRN 07/19/19 Scopolamine Patch 1.5MG [Transderm-Scop Patch] 1.5 mg TOP Q72H 07/19/19 Trazodone HCl [Trazodone Hydrochloride] 50 mg PO BEDTIME 07/19/19 Alum & Mag Hydrox-Simethicone [Mylanta] 30 ml PO Q8H PRN 03/09/20 Ascorbic Acid [Vitamin C] 500 mg PO DAILY 03/09/20 Hydroxyzine HCl 25 mg PO Q6H PRN 03/09/20 Pantoprazole Tablet [Protonix] 40 mg PO ACBK 03/09/20 guaiFENesin 100 MG/5 ML [Robitussin] 30 ml PO TID 03/09/20 Levofloxacin [Levaquin] 750 mg PO DAILY #5 tablet 03/21/20 Prednisone 40 mg PO DAILY #8 tab 03/21/20
[2020-04-10 16:05] VITALS: O2SAT 100
[2020-04-10 16:51] VITALS: BP 134/81
== END 2020-04-10 16:51 ==
LOC: ER 13:40
DX: R07.9 Chest pain, unspecified (principal); R06.09 Other forms of dyspnea; I10 Essential (primary) hypertension; I50.9 Heart failure, unspecified; Z79.899 Other long term (current) drug therapy
CPT/HCPCS: 36415; 36600; 71045; 80048; 80076; 82550; 82553; 82803; 84484; 85025; 85379; 85610; 85730; 87040; 87070; 87205; 94002; 94640; 94760; A4216; J2270; J2405

== ENCOUNTER → 2020-06-28 | Outpatient (CLI) | payer MEDICARE, MEDICAID | LOC: GOCC 10:38 | PROVIDERS: ATTEND Internal Medicine | DX: J06.9 Acute upper respiratory infection, unspecified (principal); J96.02 Acute respiratory failure with hypercapnia; J41.0 Simple chronic bronchitis; J47.9 Bronchiectasis, uncomplicated; G89.4 Chronic pain syndrome; Z99.11 Dependence on respirator [ventilator] status; J43.9 Emphysema, unspecified; F41.1 Generalized anxiety disorder; H10.30 Unspecified acute conjunctivitis, unspecified eye; M54.5 Low back pain; F33.1 Major depressive disorder, recurrent, moderate; M62.81 Muscle weakness (generalized); R26.89 Other abnormalities of gait and mobility; R27.8 Other lack of coordination; H53.8 Other visual disturbances; K04.7 Periapical abscess without sinus; R00.0 Tachycardia, unspecified; R26.9 Unspecified abnormalities of gait and mobility; E88.01 Alpha-1-antitrypsin deficiency; F41.9 Anxiety disorder, unspecified; B37.9 Candidiasis, unspecified; I10 Essential (primary) hypertension; R12 Heartburn; G47.00 Insomnia, unspecified; F33.2 Major depressive disorder, recurrent severe without psychotic features; E66.01 Morbid (severe) obesity due to excess calories; R07.89 Other chest pain; K08.89 Other specified disorders of teeth and supporting structures; M25.551 Pain in right hip; Z93.0 Tracheostomy status; R65.10 Systemic inflammatory response syndrome (SIRS) of non-infectious origin without acute organ dysfunction; Z91.81 History of falling ==

== ENCOUNTER 2020-09-06 03:19 | Emergency (ER) | payer MEDICARE, MEDICAID ==
[2020-09-06] MEDS ORDERED: SODIUM CHLORIDE 0.9% (FLUSH) 10 ML SYG IV PRN (03:23)
--- NOTE | 2020-09-06 03:24 | ED.PDOC ---
History of Present Illness - General Time Seen by Provider: 09/06/20 03:20 Source: patient, EMS, halfway records - History of Present Illness Initial Comments: 35-year-old female with past medical history of alpha 1 antitrypsin deficiency, chronic respiratory failure with trach/vent dependence, panlobular emphysema, bronchiectasis who is brought in by EMS from [facility] for chief complaint of acute respiratory distress. History is limited as patient appears tired. retail tire sales manager from the halfway as well as EMS reports that patient has been having nightly episodes of increased respiratory effort for the past couple of weeks. She again had an episode this evening just prior to arrival with shortness of breath and rapid breathing which was accompanied by anxiety. long-term reported that she had SPO2 desaturations to the 70s. retail tire sales manager met with the patient and her family we decided to change her CODE STATUS to DNR. However, EMS was called for that episode and for ED evaluation. EMS reported good SPO2 in route, however patient remained with anxiety and some increased respirations. Upon ED arrival respiratory distress appears largely resolved. Patient reports to me that she feels like she is breathing much better now. Denies any chest pain, fevers, chills. She does report some mild generalized abdominal discomfort. Patient is known to have frequent issues with mucus plugging in the past. It is unknown if she has recently been tested for COVID-19. Allergies/Adverse Reactions: Allergies NSAIDs Allergy (Verified 04/10/20 14:03) Tomato Allergy (Verified 04/10/20 14:03) Home Medications: Ambulatory Orders Acetaminophen [Tylenol] 500 mg PO Q8HRS PRN 07/19/19 Arformoterol Tartrate Nebs [Brovana Nebs] 15 mcg NEB RTBID 07/19/19 Atropine 1% Ophth Briana [(None)] 5 ml SL TID 07/19/19 Budesonide (Inhalation) [Pulmicort] 0.5 mg INH BID 07/19/19 Cetirizine HCl [ZyrTEC] 10 mg PO DAILY 07/19/19 Clonazepam 1 mg PO Q8HRS 07/19/19 DULoxetine HCL [Cymbalta] 90 mg PO DAILY 07/19/19 Divalproex Sodium [Depakote Tab] 250 mg PO DAILY 07/19/19 Furosemide 60 mg PO DAILY 07/19/19 Gabapentin 600 mg PO Q8H 07/19/19 HYDROcodone 10MG/APAP 325MG [Fisk 10/325] 1 tab PO Q8HRS PRN 07/19/19 Ipratropium/Albuterol [Duoneb] 3 ml NEB Q6HRS PRN 07/19/19 Lactobacillus [Acidophilus] 1 cap PO DAILY 07/19/19 Lidocaine 1% 2 ml [Xylocaine] 2 ml NEB Q6HRS PRN 07/19/19 Magnesium Hydroxide [Milk Of Magnesia] 30 ml PO DAILY PRN 07/19/19 Multiple Vitamins W/ Minerals [Multivitamin Adult Extra] 1 tablet PO DAILY 07/19/19 Nitroglycerin 0.4 mg Tab [Nitrostat] 0.4 mg SL Q5MIN PRN 07/19/19 Potassium Chloride [Potassium Chloride ER] 10 meq PO BID 07/19/19 Promethazine HCl 25 mg PO Q6HR PRN 07/19/19 Scopolamine Patch 1.5MG [Transderm-Scop Patch] 1.5 mg TOP Q72H 07/19/19 Trazodone HCl [Trazodone Hydrochloride] 50 mg PO BEDTIME 07/19/19 Alum & Mag Hydrox-Simethicone [Mylanta] 30 ml PO Q8H PRN 03/09/20 Ascorbic Acid [Vitamin C] 500 mg PO DAILY 03/09/20 Hydroxyzine HCl [Hydroxyzine Hydrochloride] 25 mg PO Q6H PRN 03/09/20 Pantoprazole Tablet [Protonix] 40 mg PO ACBK 03/09/20 guaiFENesin 100 MG/5 ML [Robitussin] 30 ml PO TID 03/09/20 Levofloxacin [Levaquin] 750 mg PO DAILY #5 tablet 03/21/20 Prednisone 40 mg PO DAILY #8 tab 03/21/20 Review of Systems - Review of Systems Review of Systems: 09/06/20 03:39 as per HPI All other Systems: Reviewed and Negative Past Medical History (General) - Patient Medical History Hx Seizures: No Hx Stroke: No Hx Dementia: No Hx Asthma: No Hx of COPD: No Hx Cardiac Disorders: Yes - tachycardia Hx Congestive Heart Failure: Yes Hx Pacemaker: No Hx Hypertension: Yes Hx Thyroid Disease: No Hx Diabetes: No Hx Gastroesophageal Reflux: No Hx Renal Disease: No Hx Cancer: No Hx of HIV: No Hx Hepatitis C: No Hx MRSA: No - Vaccination History Hx Tetanus, Diphtheria Vaccination: No - patient cannot recall Hx Influenza Vaccination: Yes Hx Pneumococcal Vaccination: Yes - Social History Hx Tobacco Use: No Hx Chewing Tobacco Use: No Hx Alcohol Use: Yes Hx Substance Use: No Hx Substance Use Treatment: No Hx Depression: No Hx Physical Abuse: No Hx Emotional Abuse: No Hx Suspected Abuse: No - Female History Patient : No Family Medical History - Family History Mother Family History: Unknown Physical Exam - Physical Exam General Appearance: Alert, Comfortable, No apparent distress, Other - Appears drowsy/tired Eye Exam: bilateral normal Ears, Nose, Throat: normal ENT inspection, normal pharynx Neck: non-tender, supple, normal inspection Respiratory: lungs clear, normal breath sounds, no respiratory distress, no accessory muscle use Cardiovascular/Chest: normal peripheral pulses, regular rate, rhythm, no edema, no gallop, no JVD, no murmur Peripheral Pulses: radial,right: 2+, radial,left: 2+ Gastrointestinal/Abdominal: non tender, soft Back Exam: normal inspection, no CVA tenderness Extremity: normal range of motion, non-tender, normal inspection, no pedal edema, no calf tenderness, normal capillary refill Neurologic: registered nurse II-XII nml as tested, no motor/sensory deficits, alert, normal mood/affect, oriented x 3 Skin Exam: normal color, warm/dry Progress - Progress Progress: 09/06/20 03:40 Acute hypoxic resiratory distress -appears resolved now upon ED arrival. Consider mucous plugging, PNA, COVID-19, ACS, PE, sepsis, other -obtain full cardiac/respiratory work-up, COVID-19/flu/strep testing -continue vent settings at baseline - PEEP 12, FiO2 50% -trial of Duonebs -1 L NS bolus 09/06/20 05:08 -Patient remains markedly improved, reports feeling much better. No further episodes of respiratory distress. COVID-19 and flu testing are negative. -X-ray imaging of the chest reveals chronic findings of increased lung volumes, bronchiectasis, bilateral CV angle blunting suspicious for possible pleural effusions. Appears largely unchanged from prior chest x-ray per my read. -D-dimer is slightly elevated above reference range to 900. Consider PE. Will obtain CTA of the chest for further evaluation. -Remainder of labs pretty unremarkable - normal WBC w/o left shift or bandemia, lactate wnl, rapid COVID-19/flu testing negative, strep negative. Chronic st able anemia noted. Trop wnl. -pt reports some chest discomfort - will give morphine 4 mg IV 09/06/20 07:01 -CTA of the chest reveals no evidence of acute PE. Large appears unchanged from the prior CT chest imaging. There is evidence of bronchiolitis but no focal bacterial infection/pneumonia. Patient has noted chronic findings of severe panlobular emphysema, bronchiectasis, etc. -Patient has continued to remain stable without any further episodes of respiratory distress. I discussed all findings with her and her family. I suspect most likely that patient had a mucous plug as the cause of her temporary respiratory distress which has been resolved since ED arrival. Discussed trach and respiratory care in order to hopefully prevent recurrence moving forward. Will discharge back to halfway in stable condition, return warnings discussed at length. Follow-up closely with PCP. Saeid Norris MD Billing #[id number] 09/06/20 03:23 IV Care:Saline Lock per Protoc QSHIFT Telemetry .ONCE Sodium Chloride 0.9% (Flush) [Saline Flush Syringe] 10 ml IV PRN PRN Pulse Oximetry Assessment DAILY 09/06/20 03:30 EKG STAT 09/06/20 04:10 STREP A SCREEN CULTURE Stat 09/06/20 09:00 Pulse Ox Daily Laboratory Results - last 24 hr 09/06/20 09/06/20 09/06/20 03:42 03:42 03:42 WBC 9.6 RBC 3.08 L Hgb 9.2 L Hct 28.3 L MCV 92.0 MCH 29.8 MCHC 32.3 L RDW 17.4 H Plt Count 223 MPV 8.4 Absolute Neuts (auto) 6.80 Absolute Lymphs (auto) 1.30 Absolute Monos (auto) 1.00 H Absolute Eos (auto) 0.40 Absolute Basos (auto) 0.10 Neutrophils % 70.8 Lymphocytes % 13.9 L Monocytes % 10.4 H Eosinophils % 4.0 Basophils % 0.9 D-Dimer, Quantitative 916.0 H* Sodium 141 Potassium 4.1 Chloride 95 L Carbon Dioxide 38 H Anion Gap 12.1 BUN 15 Creatinine 0.79 BUN/Creatinine Ratio 19.0 Random Glucose 110 H Serum Osmolality 282.7 Lactic Acid Calcium 8.0 L Total Bilirubin 1.1 H AST 45 H ALT 36 Alkaline Phosphatase 144 H Troponin I B-Natriuretic Peptide < 15.0 Serum Total Protein 7.6 Albumin 3.6 Globulin 4.0 H Albumin/Globulin Ratio 0.9 L Group A Strep Rapid 09/06/20 09/06/20 09/06/20 03:42 03:42 04:10 WBC RBC Hgb Hct MCV MCH MCHC RDW Plt Count MPV Absolute Neuts (auto) Absolute Lymphs (auto) Absolute Monos (auto) Absolute Eos (auto) Absolute Basos (auto) Neutrophils % Lymphocytes % Monocytes % Eosinophils % Basophils % D-Dimer, Quantitative Sodium Potassium Chloride Carbon Dioxide Anion Gap BUN Creatinine BUN/Creatinine Ratio Random Glucose Serum Osmolality Lactic Acid 0.5 Calcium Total Bilirubin AST ALT Alkaline Phosphatase Troponin I < 0.02 B-Natriuretic Peptide Serum Total Protein Albumin Globulin Albumin/Globulin Ratio Group A Strep Rapid Negative - EKG/XRAY/CT EKG: Sinus, Tachy - Heart rate 100, no ST elevations or Q waves noted, right axis deviation present, intervals normal, compared to 04/10/2020 EKG appears largely unchanged XRAY: chest - reveals chronic findings of increased lung volumes, bronchiectasis, bilateral CV angle blunting suspicious for possible pleural effusions. Appears largely unchanged from prior chest x-ray per my read. Departure - Departure Clinical Impression: Mucus plugging of bronchi, Bronchiolitis Time of Disposition: 06:59 Disposition: Discharge to SNF Condition: Good Instructions: Shortness of Breath (Dyspnea) (DC) Diet: resume usual diet Activity: increase activity as tolerated Referrals: NAVEEN ELLIS [Primary Care Provider] - 1-2 Weeks Home Medications: Ambulatory Orders Acetaminophen [Tylenol] 500 mg PO Q8HRS PRN 07/19/19 Arformoterol Tartrate Nebs [Brovana Nebs] 15 mcg NEB RTBID 07/19/19 Atropine 1% Ophth Briana [(None)] 5 ml SL TID 07/19/19 Budesonide (Inhalation) [Pulmicort] 0.5 mg INH BID 07/19/19 Cetirizine HCl [ZyrTEC] 10 mg PO DAILY 07/19/19 Clonazepam 1 mg PO Q8HRS 07/19/19 DULoxetine HCL [Cymbalta] 90 mg PO DAILY 07/19/19 Divalproex Sodium [Depakote Tab] 250 mg PO DAILY 07/19/19 Furosemide 60 mg PO DAILY 07/19/19 Gabapentin 600 mg PO Q8H 07/19/19 HYDROcodone 10MG/APAP 325MG [Fisk 10/325] 1 tab PO Q8HRS PRN 07/19/19 Ipratropium/Albuterol [Duoneb] 3 ml NEB Q6HRS PRN 07/19/19 Lactobacillus [Acidophilus] 1 cap PO DAILY 07/19/19 Lidocaine 1% 2 ml [Xylocaine] 2 ml NEB Q6HRS PRN 07/19/19 Magnesium Hydroxide [Milk Of Magnesia] 30 ml PO DAILY PRN 07/19/19 Multiple Vitamins W/ Minerals [Multivitamin Adult Extra] 1 tablet PO DAILY 07/19/19 Nitroglycerin 0.4 mg Tab [Nitrostat] 0.4 mg SL Q5MIN PRN 07/19/19 Potassium Chloride [Potassium Chloride ER] 10 meq PO BID 07/19/19 Promethazine HCl 25 mg PO Q6HR PRN 07/19/19 Scopolamine Patch 1.5MG [Transderm-Scop Patch] 1.5 mg TOP Q72H 07/19/19 Trazodone HCl [Trazodone Hydrochloride] 50 mg PO BEDTIME 07/19/19 Alum & Mag Hydrox-Simethicone [Mylanta] 30 ml PO Q8H PRN 03/09/20 Ascorbic Acid [Vitamin C] 500 mg PO DAILY 03/09/20 Hydroxyzine HCl [Hydroxyzine Hydrochloride] 25 mg PO Q6H PRN 03/09/20 Pantoprazole Tablet [Protonix] 40 mg PO ACBK 03/09/20 guaiFENesin 100 MG/5 ML [Robitussin] 30 ml PO TID 03/09/20 Levofloxacin [Levaquin] 750 mg PO DAILY #5 tablet 03/21/20 Prednisone 40 mg PO DAILY #8 tab 03/21/20 Additional Instructions: Patient tested negative for flu and COVID-19 this visit. Her ED work-up revealed additionally no evidence of PE. Her respiratory distress has been resolved since her ED arrival. It is felt that likely she had some brief mucus plugging as the cause of her increased respiratory effort just prior to arrival. In order to prevent this continue frequent suctioning as needed, Mucomyst as needed, scopolamine/Mucinex as needed, etc. Return to the ED if the patient develops worsening chest pain, shortness of breath, hypoxemia, other concerning symptoms. Otherwise follow-up with the patient's primary care physician is recommended in the next 3 to 5 days for repeat evaluation or sooner as needed.
[2020-09-06] MEDS ORDERED: IPRATROPIUM/ALBUTEROL 3 ML VIAL NEB ONE (03:34)
[2020-09-06] MEDS ORDERED: SODIUM CHLORIDE 0.9% 1000ML 1,000 ML IVS ONE (03:34)
--- NOTE | 2020-09-06 03:56 | RAD ---
EXAM DESCRIPTION: Chest,1 View 09/06/2020 3:50 AM CDT CLINICAL HISTORY: 35 years, Female, respiratory distress, hx alpha 1 antitrypsin def COMPARISON: 04/10/2020-03/21/2020, previous CTA performed 03/09/2020 FINDINGS: Single view of the chest was obtained portable. Prior films were compared. Again there is a tracheostomy tube in place. There are centrilobular emphysematous changes. There is post changes within the right and left lower lung zones. Bronchial thickening perhaps suggesting bronchiectasis similar to prior study. The cardiomediastinal silhouette demonstrate to be unremarkable. Blunting bilateral CP angles could suggest the possibility of pleural effusion and/or related to hyperinflation. IMPRESSION: TRACHEOSTOMY TUBE IN PLACE. HYPERINFLATION-COPD WITH A BULLOUS CHANGES LOWER LUNG ZONES. BRONCHIAL THICKENING ESPECIALLY ALONG THE MID/LOWER LUNG ZONES WITH INTERSTITIAL CHANGES MID LUNG ZONES. OVERALL NO SIGNIFICANT INTERVAL CHANGE. Electronically signed by: Davie Hogan MD 09/06/2020 3:55 AM CDT
[2020-09-06] MEDS ORDERED: MORPHINE SULFATE INJ 10 MG/ML VIAL IV ONE ×2 (04:47→06:57)
--- NOTE | 2020-09-06 06:32 | CT ---
CT angiogram chest with contrast on 09/06/2020 CLINICAL INDICATION: Chest pain, elevated d-dimer, acute respiratory distress TECHNIQUE: Multiple axial images are obtained throughout the chest following the administration of IV contrast. Computer generated 3D reconstructions/MIPS were performed. This exam was performed according to our departmental dose-optimization program, which includes automated exposure control, adjustment of the mA and/or kV according to patient size and/or use of iterative reconstruction technique. Total DLP is 835.31 mGy*cm. COMPARISON: 03/09/2020 FINDINGS: Tracheostomy tube tip is in the thoracic trachea. There is no thoracic aortic aneurysm or dissection. Breathing motion limits some of the examination. Bolus timing also is suboptimal for evaluation of pulmonary embolus. No definite filling defects are noted in the pulmonary arteries to suggest pulmonary embolus. There is no pleural or pericardial effusion. Small amount of ascites is noted in the right upper quadrant. Limited visualized upper abdomen is otherwise unremarkable. There is no thoracic adenopathy. Extensive cystic bronchiectasis is noted bilaterally. There are again noted tree-in-bud nodular opacities bilaterally consistent with an infectious bronchiolitis and/or aspiration. Emphysematous changes of the lungs are noted. The lungs are otherwise clear. No acute bony abnormality is noted. Old left rib fractures are noted. IMPRESSION: 1. No definite evidence of pulmonary embolus with limitations as above. 2. Emphysema with extensive bronchiectasis bilaterally. There are again noted extensive bilateral tree in bud nodular opacities consistent with an infectious bronchiolitis and/or aspiration. 3. Small amount of ascites in the upper abdomen. Electronically signed by: Ralph Tierney 09/06/2020 6:30 AM CDT
[2020-09-06 07:00] VITALS: BP 111/84; TEMP 97.6; O2SAT 96
== END 2020-09-06 07:23 ==
LOC: ER 03:19
DX: T17.890A Other foreign object in other parts of respiratory tract causing asphyxiation, initial encounter (principal); J21.9 Acute bronchiolitis, unspecified; J96.10 Chronic respiratory failure, unspecified whether with hypoxia or hypercapnia; E88.01 Alpha-1-antitrypsin deficiency; J43.1 Panlobular emphysema; I11.0 Hypertensive heart disease with heart failure; I50.9 Heart failure, unspecified; Z93.0 Tracheostomy status; Z99.81 Dependence on supplemental oxygen; Z79.899 Other long term (current) drug therapy; Z20.828 Contact with and (suspected) exposure to other viral communicable diseases
CPT/HCPCS: 71045; 71275; 80053; 83605; 83880; 84484; 85025; 85379; 87070; 87502; 87635; 87880; 93005; 94002; 94640; J2270; J7620

== ENCOUNTER 2020-09-08 19:53 | Emergency (ER) | payer MEDICARE, MEDICAID ==
[2020-09-08] MEDS ORDERED: SODIUM CHLORIDE 0.9% (FLUSH) 10 ML SYG IV PRN (20:03)
[2020-09-08] MEDS ORDERED: MORPHINE SULFATE INJ 10 MG/ML VIAL IV ONE (20:04)
[2020-09-08] MEDS ORDERED: IPRATROPIUM/ALBUTEROL 3 ML VIAL NEB ONE (20:04)
[2020-09-08] MEDS ORDERED: ONDANSETRON INJ 4 MG/2 ML VIAL IV ONE (20:08)
--- NOTE | 2020-09-08 20:08 | ED.PDOC ---
History of Present Illness - General Time Seen by Provider: 09/08/20 20:03 Source: patient, EMS, custodial records - History of Present Illness Initial Comments: 35-year-old female with past medical history of alpha 1 antitrypsin deficiency, chronic respiratory failure with trac/vent dependence, bronchiectasis, panlobular bullous emphysema who is brought in by EMS from [facility] for chief complaint of respiratory distress. Patient onset about 2 hours ago with worsening just prior to arrival. skilled nursing reported that she had tachypnea with SPO2 in the 70s. She had attempted suctioning, bagging, Mucomyst, albuterol, Ativan with little relief. The assisted respirations were continued in route. EMS reported SPO2 99%, otherwise with tachycardia but stable vitals. On arrival here patient reports she has had persistent episodes of shortness of breath, coughing, chest discomfort through the weekend. Patient was also seen 3 nights ago with a similar episode. CTA of the chest revealed no evidence of PE. Patient had resolution of respiratory distress symptoms and had stable vitals and was discharged back to the custodial at that time. Additionally reports intermittent fevers - Tmax 100.5 F today on ED arrival, sav quent cough productive for yellow mucus, nausea. Denies abdominal pain, diarrhea, urinary symptoms. She does have chronic leg swelling which is at baseline. Of note patient is on hospice care. However she states she is full code. She and her family want all aggressive therapies at this time to help resolve her current illness/infection. She did refuse transfer to higher level of care 3 days ago. Allergies/Adverse Reactions: Allergies NSAIDs Allergy (Verified 09/08/20 20:15) Tomato Allergy (Verified 09/08/20 20:15) Home Medications: Ambulatory Orders Acetaminophen [Tylenol] 500 mg PO Q8HRS PRN 07/19/19 Arformoterol Tartrate Nebs [Brovana Nebs] 15 mcg NEB RTBID 07/19/19 Atropine 1% Ophth Briana [(None)] 5 ml SL TID 07/19/19 Budesonide (Inhalation) [Pulmicort] 0.5 mg INH BID 07/19/19 Cetirizine HCl [ZyrTEC] 10 mg PO DAILY 07/19/19 Clonazepam 1 mg PO Q8HRS 07/19/19 DULoxetine HCL [Cymbalta] 90 mg PO DAILY 07/19/19 Divalproex Sodium [Depakote Tab] 250 mg PO DAILY 07/19/19 Furosemide 60 mg PO DAILY 07/19/19 Gabapentin 600 mg PO Q8H 07/19/19 HYDROcodone 10MG/APAP 325MG [Morley 10/325] 1 tab PO Q8HRS PRN 07/19/19 Ipratropium/Albuterol [Duoneb] 3 ml NEB Q6HRS PRN 07/19/19 Lactobacillus [Acidophilus] 1 cap PO DAILY 07/19/19 Lidocaine 1% 2 ml [Xylocaine] 2 ml NEB Q6HRS PRN 07/19/19 Magnesium Hydroxide [Milk Of Magnesia] 30 ml PO DAILY PRN 07/19/19 Multiple Vitamins W/ Minerals [Multivitamin Adult Extra] 1 tablet PO DAILY 07/19/19 Nitroglycerin 0.4 mg Tab [Nitrostat] 0.4 mg SL Q5MIN PRN 07/19/19 Potassium Chloride [Potassium Chloride ER] 10 meq PO BID 07/19/19 Promethazine HCl 25 mg PO Q6HR PRN 07/19/19 Scopolamine Patch 1.5MG [Transderm-Scop Patch] 1.5 mg TOP Q72H 07/19/19 Trazodone HCl [Trazodone Hydrochloride] 50 mg PO BEDTIME 07/19/19 Alum & Mag Hydrox-Simethicone [Mylanta] 30 ml PO Q8H PRN 03/09/20 Ascorbic Acid [Vitamin C] 500 mg PO DAILY 03/09/20 Hydroxyzine HCl [Hydroxyzine Hydrochloride] 25 mg PO Q6H PRN 03/09/20 Pantoprazole Tablet [Protonix] 40 mg PO ACBK 03/09/20 guaiFENesin 100 MG/5 ML [Robitussin] 30 ml PO TID 03/09/20 Levofloxacin [Levaquin] 750 mg PO DAILY #5 tablet 03/21/20 Prednisone 40 mg PO DAILY #8 tab 03/21/20 Review of Systems - Review of Systems Review of Systems: 09/08/20 22:04 as per HPI All other Systems: Reviewed and Negative Past Medical History (General) - Patient Medical History Hx Seizures: No Hx Stroke: No Hx Dementia: No Hx Asthma: No Hx of COPD: No Hx Cardiac Disorders: Yes - tachycardia Hx Congestive Heart Failure: Yes Hx Pacemaker: No Hx Hypertension: Yes Hx Thyroid Disease: No Hx Diabetes: No Hx Gastroesophageal Reflux: No Hx Renal Disease: No Hx Cancer: No Hx of HIV: No Hx Hepatitis C: No Hx MRSA: No - Vaccination History Hx Tetanus, Diphtheria Vaccination: No - patient cannot recall Hx Influenza Vaccination: Yes Hx Pneumococcal Vaccination: Yes - Social History Hx Tobacco Use: No Hx Chewing Tobacco Use: No Hx Alcohol Use: Yes Hx Substance Use: No Hx Substance Use Treatment: No Hx Depression: No Hx Physical Abuse: No Hx Emotional Abuse: No Hx Suspected Abuse: No - Female History Patient : No Family Medical History - Family History Mother Family History: Unknown Physical Exam - Physical Exam General Appearance: Alert, Anxious, No apparent distress, Obese Eye Exam: bilateral normal Ears, Nose, Throat: hearing grossly normal, normal pharynx, other - Trach in place - thick yellow/white secretions noted Neck: non-tender, full range of motion, supple, normal inspection Respiratory: other - diffuse rhonchi/rales throughout with diminished breath sounds, no wheezing Cardiovascular/Chest: normal peripheral pulses, regular rate, rhythm, no edema, no gallop, no JVD, no murmur Peripheral Pulses: radial,right: 2+, radial,left: 2+ Gastrointestinal/Abdominal: non tender, soft, no organomegaly Back Exam: normal inspection Extremity: non-tender, no calf tenderness, normal capillary refill, pedal edema 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 No ICU beds available. I have asked to speak with the patient's bottom cementer, Dr. Lombardi, for telephone consultation. 09/09/20 00:20 -Dr. Jeong never returned my call. Spoke then with [facility], [facility], [facility] transfer lines. No ICU/vent beds available. Spoke with [facility] transfer line who will call us back. -Pt remains stable, reports return of chest pain - will give morphine 4 mg IV -Pt begun on Vanc 1500 mg IV & Merrem 1 g IV for ventilator associated PNA. Stable on improved vent settings by RT. Still having thick copious yellow mucous from trach site. 09/09/20 00:46 -[facility] called back - only taking "emergent" transfers at this time and pt does not meet criteria. Thus called [facility] transfer line - only facility with possible ICU bed is [facility]. Will call me back for possible ED to inpatient transfer. 09/09/20 01:50 -Spoke with Dr. Moreira at [facility] who accepts pt to ICU bed there. Stable to go via ground EMS. Saeid Norris MD Billing #[id number] 09/08/20 20:03 IV Care:Saline Lock per Protoc QSHIFT Telemetry .ONCE Sodium Chloride 0.9% (Flush) [Saline Flush Syringe] 10 ml IV PRN PRN Pulse Oximetry Assessment DAILY 09/08/20 20:15 EKG STAT Mechanical Ventilation DAILY 09/08/20 22:06 BLOOD CULTURE Stat SPUTUM CULTURE Stat 09/09/20 09:00 Pulse Ox Daily Laboratory Results - last 24 hr 09/08/20 09/08/20 09/08/20 20:40 20:40 20:40 WBC 10.9 H RBC 2.95 L Hgb 8.8 L Hct 27.0 L MCV 91.2 MCH 29.9 MCHC 32.8 L RDW 16.9 H Plt Count 191 MPV 7.8 Absolute Neuts (auto) 8.90 H Absolute Lymphs (auto) 0.50 L Absolute Monos (auto) 1.20 H Absolute Eos (auto) 0.30 Absolute Basos (auto) 0.10 Neutrophils % 81.6 H Lymphocytes % 5.0 L Monocytes % 10.6 H Eosinophils % 2.3 Basophils % 0.5 D-Dimer, Quantitative Sodium 137 Potassium 3.1 L D Chloride 91 L Carbon Dioxide 36 H Anion Gap 13.1 BUN 11 Creatinine 0.84 BUN/Creatinine Ratio 13.1 Random Glucose 116 H Serum Osmolality 274.2 L Lactic Acid 0.6 Calcium 8.0 L Total Bilirubin 1.2 H AST 19 ALT 23 Alkaline Phosphatase 154 H B-Natriuretic Peptide 21.1 Serum Total Protein 7.3 Albumin 3.3 Globulin 4.0 H Albumin/Globulin Ratio 0.8 L 09/08/20 20:40 WBC RBC Hgb Hct MCV MCH MCHC RDW Plt Count MPV Absolute Neuts (auto) Absolute Lymphs (auto) Absolute Monos (auto) Absolute Eos (auto) Absolute Basos (auto) Neutrophils % Lymphocytes % Monocytes % Eosinophils % Basophils % D-Dimer, Quantitative 1450.0 H* Sodium Potassium Chloride Carbon Dioxide Anion Gap BUN Creatinine BUN/Creatinine Ratio Random Glucose Serum Osmolality Lactic Acid Calcium Total Bilirubin AST ALT Alkaline Phosphatase B-Natriuretic Peptide Serum Total Protein Albumin Globulin Albumin/Globulin Ratio - EKG/XRAY/CT EKG: Sinus - Normal sinus rhythm, heart rate 90, no ST elevations or Q waves noted, right axis deviation present, intervals normal, compared to 09/06/2020 EKG appears unchanged XRAY: chest - Worsening diffuse interstitial infiltrates noted compared to 09/06 chest x-ray. Small bilateral lower lung field opacification suspicious for pleural effusions also noted Departure - Departure Clinical Impression: Ventilator associated pneumonia, Acute respiratory failure with hypoxia and hypercapnia Time of Disposition: 22:16 Disposition: Transfer to Hospital Condition: Fair Referrals: NAVEEN ELLIS [Primary Care Provider] - 1-2 Weeks Home Medications: Ambulatory Orders Acetaminophen [Tylenol] 500 mg PO Q8HRS PRN 07/19/19 Arformoterol Tartrate Nebs [Brovana Nebs] 15 mcg NEB RTBID 07/19/19 Atropine 1% Ophth Briana [(None)] 5 ml SL TID 07/19/19 Budesonide (Inhalation) [Pulmicort] 0.5 mg INH BID 07/19/19 Cetirizine HCl [ZyrTEC] 10 mg PO DAILY 07/19/19 Clonazepam 1 mg PO Q8HRS 07/19/19 DULoxetine HCL [Cymbalta] 90 mg PO DAILY 07/19/19 Divalproex Sodium [Depakote Tab] 250 mg PO DAILY 07/19/19 Furosemide 60 mg PO DAILY 07/19/19 Gabapentin 600 mg PO Q8H 07/19/19 HYDROcodone 10MG/APAP 325MG [Morley 10/325] 1 tab PO Q8HRS PRN 07/19/19 Ipratropium/Albuterol [Duoneb] 3 ml NEB Q6HRS PRN 07/19/19 Lactobacillus [Acidophilus] 1 cap PO DAILY 07/19/19 Lidocaine 1% 2 ml [Xylocaine] 2 ml NEB Q6HRS PRN 07/19/19 Magnesium Hydroxide [Milk Of Magnesia] 30 ml PO DAILY PRN 07/19/19 Multiple Vitamins W/ Minerals [Multivitamin Adult Extra] 1 tablet PO DAILY 07/19/19 Nitroglycerin 0.4 mg Tab [Nitrostat] 0.4 mg SL Q5MIN PRN 07/19/19 Potassium Chloride [Potassium Chloride ER] 10 meq PO BID 07/19/19 Promethazine HCl 25 mg PO Q6HR PRN 07/19/19 Scopolamine Patch 1.5MG [Transderm-Scop Patch] 1.5 mg TOP Q72H 07/19/19 Trazodone HCl [Trazodone Hydrochloride] 50 mg PO BEDTIME 07/19/19 Alum & Mag Hydrox-Simethicone [Mylanta] 30 ml PO Q8H PRN 03/09/20 Ascorbic Acid [Vitamin C] 500 mg PO DAILY 03/09/20 Hydroxyzine HCl [Hydroxyzine Hydrochloride] 25 mg PO Q6H PRN 03/09/20 Pantoprazole Tablet [Protonix] 40 mg PO ACBK 03/09/20 guaiFENesin 100 MG/5 ML [Robitussin] 30 ml PO TID 03/09/20 Levofloxacin [Levaquin] 750 mg PO DAILY #5 tablet 03/21/20 Prednisone 40 mg PO DAILY #8 tab 03/21/20 Transfer to Outside Facility - Transfer Information Decision to Transfer Date: 09/09/20 Decision to Transfer Time: 01:51 Reason for Transfer: ICU Accepting Provider:: Dr. Moreira Accepting Facility: [facility]
--- NOTE | 2020-09-08 20:26 | RAD ---
EXAM: Chest,1 View CLINICAL INDICATION: Shortness of breath COMPARISON: 09/06/2020 FINDINGS: A single view of the chest was obtained. The heart size is mildly enlarged. The pulmonary vascularity is moderately congested, worse than the previous study. Small bilateral pleural effusions are noted. A tracheostomy is noted. The lungs are otherwise clear. There is no pneumothorax. IMPRESSION: Moderate CHF. Small bilateral pleural effusions. Electronically signed by: Moise Barbosa MD 09/08/2020 8:24 PM CDT
[2020-09-08] MEDS ORDERED: POTASSIUM CHLORIDE 20 MEQ TAB PO ONE (21:49)
[2020-09-08] MEDS ORDERED: MEROPENEM 1 GM in SODIUM CHL 0.9% 50ML MIN-BAG+ 50 ML IVPB ONE (23:39)
[2020-09-08] MEDS ORDERED: VANCOMYCIN HCL INJ 1,000 MG, VANCOMYCIN HCL INJ 500 MG in SODIUM CHLORIDE 0.9% 250ML 25... IVPB ONE (23:39)
[2020-09-09] MEDS ORDERED: MORPHINE SULFATE INJ 10 MG/ML VIAL IV ONE ×2 (00:22)
[2020-09-09 02:38] VITALS: TEMP 99.9
[2020-09-09 03:36] VITALS: BP 117/75; O2SAT 97
== END 2020-09-09 03:18 | disposition short-term general hospital (02) ==
LOC: ER 19:53
DX: J95.851 Ventilator associated pneumonia (principal); J96.02 Acute respiratory failure with hypercapnia; J96.01 Acute respiratory failure with hypoxia; E88.01 Alpha-1-antitrypsin deficiency; J43.1 Panlobular emphysema; I11.0 Hypertensive heart disease with heart failure; I50.9 Heart failure, unspecified; R00.0 Tachycardia, unspecified; Z99.11 Dependence on respirator [ventilator] status; Z79.899 Other long term (current) drug therapy; Z20.828 Contact with and (suspected) exposure to other viral communicable diseases
CPT/HCPCS: 36415; 71045; 80053; 83605; 83880; 85025; 85379; 87635; 93005; 94002; 94003; 94640; 94760; J2185; J2270; J2405; J3370; J7050; J7620

== ENCOUNTER 2020-11-21 19:50 | Emergency (ER) | payer MEDICARE, MEDICAID ==
[2020-11-21] MEDS ORDERED: SODIUM CHLORIDE 0.9% 1000ML 1,000 ML IVS ONE (20:00)
[2020-11-21] MEDS ORDERED: MEROPENEM 1 GM in SODIUM CHL 0.9% 50ML MIN-BAG+ 50 ML IVPB ONE (20:00)
[2020-11-21] MEDS ORDERED: SODIUM CHLORIDE 0.9% (FLUSH) 10 ML SYG IV PRN (20:00)
--- NOTE | 2020-11-21 20:09 | ED.PDOC ---
History of Present Illness - General Chief Complaint: Respiratory Problem Stated Complaint: resp distress, thick mucus Time Seen by Provider: 11/21/20 20:00 Source: RN notes reviewed, Vital Signs reviewed, EMS notes reviewed, EMS, skilled nursing records, old records Exam Limitations: physical impairment, other - Patient with tracheostomy in place, continuous vent dependent - History of Present Illness Initial Comments: This is a 35-year-old female with longstanding history of alcohol 1 antitrypsin deficiency and COPD with chronic respiratory failure and vent dependence presen ting to the emergency department from her skilled nursing for increasing respiratory effort and altered mental status throughout the day today. No fevers. Patient has had increasing sputum production and is requiring hourly suctioning at her skilled nursing today. longterm staff also noted that she was less responsive than normal. O2 sats on EMS arrival were in the mid 80s on her vent. They suctioned several times in route and sats appeared to improve. No known COVID-19 exposures. Allergies/Adverse Reactions: Allergies NSAIDs Allergy (Verified 09/08/20 20:15) Tomato Allergy (Verified 09/08/20 20:15) Home Medications: Ambulatory Orders Acetaminophen [Tylenol] 500 mg PO Q8HRS PRN 07/19/19 Arformoterol Tartrate Nebs [Brovana Nebs] 15 mcg NEB RTBID 07/19/19 Atropine 1% Ophth Briana [(None)] 5 ml SL TID 07/19/19 Budesonide (Inhalation) [Pulmicort] 0.5 mg INH BID 07/19/19 Cetirizine HCl [ZyrTEC] 10 mg PO DAILY 07/19/19 Clonazepam 1 mg PO Q8HRS 07/19/19 DULoxetine HCL [Cymbalta] 90 mg PO DAILY 07/19/19 Divalproex Sodium [Depakote Tab] 250 mg PO DAILY 07/19/19 Furosemide 60 mg PO DAILY 07/19/19 Gabapentin 600 mg PO Q8H 07/19/19 HYDROcodone 10MG/APAP 325MG [[place] 10/325] 1 tab PO Q8HRS PRN 07/19/19 Ipratropium/Albuterol [Duoneb] 3 ml NEB Q6HRS PRN 07/19/19 Lactobacillus [Acidophilus] 1 cap PO DAILY 07/19/19 Lidocaine 1% 2 ml [Xylocaine] 2 ml NEB Q6HRS PRN 07/19/19 Magnesium Hydroxide [Milk Of Magnesia] 30 ml PO DAILY PRN 07/19/19 Multiple Vitamins W/ Minerals [Multivitamin Adult Extra] 1 tablet PO DAILY 07/19 Nitroglycerin 0.4 mg Tab [Nitrostat] 0.4 mg SL Q5MIN PRN 07/19/19 Potassium Chloride [Potassium Chloride ER] 10 meq PO BID 07/19/19 Promethazine HCl 25 mg PO Q6HR PRN 07/19/19 Scopolamine Patch 1.5MG [Transderm-Scop Patch] 1.5 mg TOP Q72H 07/19/19 Trazodone HCl [Trazodone Hydrochloride] 50 mg PO BEDTIME 07/19/19 Alum & Mag Hydrox-Simethicone [Mylanta] 30 ml PO Q8H PRN 03/09/20 Ascorbic Acid [Vitamin C] 500 mg PO DAILY 03/09/20 Hydroxyzine HCl [Hydroxyzine Hydrochloride] 25 mg PO Q6H PRN 03/09/20 Pantoprazole Tablet [Protonix] 40 mg PO ACBK 03/09/20 guaiFENesin 100 MG/5 ML [Robitussin] 30 ml PO TID 03/09/20 Levofloxacin [Levaquin] 750 mg PO DAILY #5 tablet 03/21/20 Prednisone 40 mg PO DAILY #8 tab 03/21/20 Review of Systems - Review of Systems Respiratory: States: short of breath, other - Increase sputum production Unable to Obtain Due To: clinical condition, other - Vent dependence Past Medical History (General) - Patient Medical History Hx Seizures: No Hx Stroke: No Hx Dementia: No Hx Asthma: No Hx of COPD: No Hx Cardiac Disorders: Yes - tachycardia Hx Congestive Heart Failure: Yes Hx Pacemaker: No Hx Hypertension: Yes Hx Thyroid Disease: No Hx Diabetes: No Hx Gastroesophageal Reflux: No Hx Renal Disease: No Hx Cancer: No Hx of HIV: No Hx Hepatitis C: No Hx MRSA: No - Vaccination History Hx Tetanus, Diphtheria Vaccination: No - patient cannot recall Hx Influenza Vaccination: Yes Hx Pneumococcal Vaccination: Yes - Social History Hx Tobacco Use: No Hx Chewing Tobacco Use: No Hx Alcohol Use: Yes Hx Substance Use: No Hx Substance Use Treatment: No Hx Depression: No Hx Physical Abuse: No Hx Emotional Abuse: No Hx Suspected Abuse: No - Female History Patient : No Family Medical History - Family History Mother Family History: Unknown Physical Exam - Physical Exam General Appearance: Obvious distress, Ill Appearing, Obese Eyes, Ears, Nose, Throat Exam: PERRL/EOMI, normal ENT inspection Neck: full range of motion, supple, other - Tracheostomy in place, stoma appears clean dry and intact Respiratory: chest non-tender, accessory muscle use, crackles - Bilateral bases Cardiovascular/Chest: normal peripheral pulses, no edema, no gallop, no JVD, tachycardia Gastrointestinal/Abdominal: non tender, soft, other - Morbidly obese Extremity: normal range of motion, non-tender, normal inspection Neurologic: no motor/sensory deficits, alert, normal mood/affect, oriented x 3 Skin Exam: normal color, warm/dry Progress - Progress Progress: 11/21/20 21:09 Old records reviewed. Patient was admitted for respiratory failure in August 2020. She was transferred to [facility] ICU. She has longstanding history of alpha-1 antitrypsin deficiency and COPD with bronchiectasis and is chronically vent dependent. She had previously been on hospice, but this was reportedly revoked by her mother. Previous sputum cultures have grown out fluoroquinolone resistant Pseudomonas and Proteus. Both of these cultures were Zosyn sensitive. 11/21/20 22:02 Rechecked. Patient is feeling much better. Repeat ABG is improving. pH is improved to 7.42. PCO2 is improving to 63. I discussed her labs and chest x- ray findings. I recommended transfer for ICU management, patient adamantly refuses transfer because she does not want to go any further than [place]. She states she would rather go back to her skilled nursing with IV antibiotics.Heart rate documented at 24 at 2121. This was an erroneous entry. Heart rate has been in the 60s to 80s the entire time in the emergency department. No tachycardia, no bradycardia. 11/21/20 22:35 Rechecked. Patient states she is feeling much better. Her respiratory effort is markedly improved. ABG is improved. Lactates are normal. Chest x-ray is unchanged. Again she refuses transfer to another facility and wants to go back to her skilled nursing. Will discharge home on Zosyn based on prior sputum cultures. Strict warnings given to return to emergency room for worsening shortness of breath, fever, changes mental status, or any other concerns. DDx: Pneumonia, bronchiolitis, COPD exacerbation, COVID-19 MDM: 35-year-old female with longstanding history of alpha-1 antitrypsin deficiency and COPD, she has elected not to pursue lung transplant and was previously on hospice, but this was discontinued by her mother. She is presenting with increased work of breathing and increased confusion according to the skilled nursing. Her O2 sats at the skilled nursing were in the mid 80s. After aggressive suctioning by RT, her sats improved. Her initial ABG showed chronic respiratory acidosis with a secondary respiratory alkalosis. Chest x-ray showed no acute process. Covid swab is negative. She does have a slight white count 11,000, lactates are normal. We increased her PEEP slightly and her oxygenation and work of breathing improved markedly. Her ABG also improved significantly. Given her multiple medical comorbidities and tenuous respiratory status, I recommended transfer to an alternative facility that has ICU and pulmonology capabilities. She refused transfer. She requested IV antibiotics at her skilled nursing. I also had a long discussion with the patient regarding reinitiation of hospice care. Patient states that she would like to pursue hospice care when she returns back to the skilled nursing. Jan Dubois DO [facility] #[id number] - Results/Orders Results/Orders: EXAM: Chest,1 View CLINICAL INDICATION: Shortness of breath COMPARISON: 09/08/2020 FINDINGS: A single view of the chest was obtained. The heart size is normal. The pulmonary vascularity is moderately congested. A tracheostomy is again noted. Bilateral perihilar infiltrates are noted suggesting pulmonary edema versus pneumonia. Chronic bibasilar scarring is noted. There is no pneumothorax. IMPRESSION: Moderate CHF. Chronic scarring and bilateral perihilar streaky opacities with no change from prior. Electronically signed by: Moise Barbosa MD 11/21/2020 8:39 PM [employer] EKG reviewed personally by me at 2022. Sinus rhythm, 94, normal axis, prolonged QTC at 480, no ST segment elevations or depressions. 11/21/20 20:00 IV Care:Saline Lock per Protoc QSHIFT Telemetry .ONCE Sodium Chloride 0.9% (Flush) [Saline Flush Syringe] 10 ml IV PRN PRN EKG Stat Pulse Ox Stat 11/21/20 20:01 Pulse Oximetry Assessment DAILY 11/21/20 20:30 BLOOD CULTURE Stat 11/21/20 20:53 Mechanical Ventilation DAILY 11/21/20 21:00 Vancomycin HCl Inj 1,000 mg Vancomycin HCl Inj 500 mg Sodium Chloride 0.9% 250Ml [NS 250ml] 250 ml IVPB Q12H 11/21/20 21:25 SPUTUM CULTURE Stat 11/21/20 21:29 URINE CULTURE W/COLONY COUNT Stat 11/21/20 21:34 ABG [Arterial Blood Gas] Stat Laboratory Results - last 24 hr 11/21/20 11/21/20 11/21/20 20:00 20:25 20:25 WBC RBC Hgb Hct MCV MCH MCHC RDW Plt Count MPV Absolute Neuts (auto) Absolute Lymphs (auto) Absolute Monos (auto) Absolute Eos (auto) Absolute Basos (auto) Neutrophils % Lymphocytes % Monocytes % Eosinophils % Basophils % PT INR PTT (SP) pCO2 106 H* pO2 51 L HCO3 44.2 ABG pH 7.227 L* ABG O2 Saturation 76.2 L ABG Base Excess 13.7 ABG Deoxyhemoglobin 23.3 H Oxyhemoglobin % 74.5 L Carboxyhemoglobin % 1.3 Methemoglobin % Sat 0.9 Calc Total Hemoglobin 9.3 L Sodium 139 Potassium 3.6 Chloride 91 L Carbon Dioxide 40 H Anion Gap 11.6 L BUN 7 Creatinine 0.89 BUN/Creatinine Ratio 7.9 L Random Glucose 100 Serum Osmolality 275.6 Lactic Acid 0.7 Calcium 8.1 L Total Bilirubin 1.1 H AST 12 ALT 10 Alkaline Phosphatase 104 Creatine Kinase 20 L CK-MB (CK-2) 0.9 CK-MB (CK-2) % Not Reportable Troponin I < 0.02 B-Natriuretic Peptide Serum Total Protein 7.2 Albumin 3.2 Globulin 4.0 H Albumin/Globulin Ratio 0.8 L Urine Color Urine Appearance Urine pH Ur Specific [place] Urine Protein Urine Glucose (UA) Urine Ketones Urine Blood Urine Nitrite Urine Bilirubin Urine Urobilinogen Ur Leukocyte Esterase Urine RBC Urine WBC Ur Epithelial Cells Urine Bacteria 11/21/20 11/21/20 11/21/20 20:25 20:25 20:25 WBC 11.1 H RBC 3.09 L Hgb 8.5 L Hct 27.3 L MCV 88.4 MCH 27.4 MCHC 31.0 L RDW 16.3 H Plt Count 240 MPV 7.5 Absolute Neuts (auto) 9.10 H Absolute Lymphs (auto) 0.60 L Absolute Monos (auto) 1.10 H Absolute Eos (auto) 0.30 Absolute Basos (auto) 0.00 Neutrophils % 81.6 H Lymphocytes % 5.4 L Monocytes % 10.2 H Eosinophils % 2.4 Basophils % 0.4 PT 13.8 H INR 1.39 H PTT (SP) 23.6 pCO2 pO2 HCO3 ABG pH ABG O2 Saturation ABG Base Excess ABG Deoxyhemoglobin Oxyhemoglobin % Carboxyhemoglobin % Methemoglobin % Sat Calc Total Hemoglobin Sodium Potassium Chloride Carbon Dioxide Anion Gap BUN Creatinine BUN/Creatinine Ratio Random Glucose Serum Osmolality Lactic Acid Calcium Total Bilirubin AST ALT Alkaline Phosphatase Creatine Kinase CK-MB (CK-2) CK-MB (CK-2) % Troponin I B-Natriuretic Peptide 20.6 Serum Total Protein Albumin Globulin Albumin/Globulin Ratio Urine Color Urine Appearance Urine pH Ur Specific [place] Urine Protein Urine Glucose (UA) Urine Ketones Urine Blood Urine Nitrite Urine Bilirubin Urine Urobilinogen Ur Leukocyte Esterase Urine RBC Urine WBC Ur Epithelial Cells Urine Bacteria 11/21/20 11/21/20 11/21/20 21:25 22:11 22:20 WBC RBC Hgb Hct MCV MCH MCHC RDW Plt Count MPV Absolute Neuts (auto) Absolute Lymphs (auto) Absolute Monos (auto) Absolute Eos (auto) Absolute Basos (auto) Neutrophils % Lymphocytes % Monocytes % Eosinophils % Basophils % PT INR PTT (SP) pCO2 63 H pO2 63 L HCO3 41.5 ABG pH 7.426 ABG O2 Saturation 93.3 L ABG Base Excess 15.3 ABG Deoxyhemoglobin 6.6 H Oxyhemoglobin % 91.3 L Carboxyhemoglobin % 1.1 Methemoglobin % Sat 1.0 Calc Total Hemoglobin 8.1 L Sodium Potassium Chloride Carbon Dioxide Anion Gap BUN Creatinine BUN/Creatinine Ratio Random Glucose Serum Osmolality Lactic Acid 0.5 Calcium Total Bilirubin AST ALT Alkaline Phosphatase Creatine Kinase CK-MB (CK-2) CK-MB (CK-2) % Troponin I B-Natriuretic Peptide Serum Total Protein Albumin Globulin Albumin/Globulin Ratio Urine Color Yellow Urine Appearance Clear Urine pH 5.5 Ur Specific [place] 1.025 Urine Protein Negative Urine Glucose (UA) Negative Urine Ketones Negative Urine Blood Negative Urine Nitrite Negative Urine Bilirubin Negative Urine Urobilinogen 1.0 Ur Leukocyte Esterase Negative Urine RBC 0 Urine WBC 0 Ur Epithelial Cells 1-3 Urine Bacteria 0 ABG is consistent with chronic respiratory acidosis with secondary respiratory alkalosis Departure - Departure Clinical Impression: [id number] deficiency, Tracheostomy dependent, Mucus plugging of bronchi, Bronchiolitis Acute and chronic respiratory failure Qualifiers: Respiratory failure complication: hypoxia and hypercapnia Qualified Code(s): J96.21 - Acute and chronic respiratory failure with hypoxia Disposition: Discharge to SNF Condition: Fair Departure Forms: ED Discharge - Pt. Copy, Patient Portal Self Enrollment Instructions: Bronchiolitis (DC) Diet: resume usual diet Activity: increase activity as tolerated Referrals: NAVEEN ELLIS [Primary Care Provider] - 1-2 Days Home Medications: Ambulatory Orders Acetaminophen [Tylenol] 500 mg PO Q8HRS PRN 07/19/19 Arformoterol Tartrate Nebs [Brovana Nebs] 15 mcg NEB RTBID 07/19/19 Atropine 1% Ophth Briana [(None)] 5 ml SL TID 07/19/19 Budesonide (Inhalation) [Pulmicort] 0.5 mg INH BID 07/19/19 Cetirizine HCl [ZyrTEC] 10 mg PO DAILY 07/19/19 Clonazepam 1 mg PO Q8HRS 07/19/19 DULoxetine HCL [Cymbalta] 90 mg PO DAILY 07/19/19 Divalproex Sodium [Depakote Tab] 250 mg PO DAILY 07/19/19 Furosemide 60 mg PO DAILY 07/19/19 Gabapentin 600 mg PO Q8H 07/19/19 HYDROcodone 10MG/APAP 325MG [[place] 10/325] 1 tab PO Q8HRS PRN 07/19/19 Ipratropium/Albuterol [Duoneb] 3 ml NEB Q6HRS PRN 07/19/19 Lactobacillus [Acidophilus] 1 cap PO DAILY 07/19/19 Lidocaine 1% 2 ml [Xylocaine] 2 ml NEB Q6HRS PRN 07/19/19 Magnesium Hydroxide [Milk Of Magnesia] 30 ml PO DAILY PRN 07/19/19 Multiple Vitamins W/ Minerals [Multivitamin Adult Extra] 1 tablet PO DAILY 07/19/19 Nitroglycerin 0.4 mg Tab [Nitrostat] 0.4 mg SL Q5MIN PRN 07/19/19 Potassium Chloride [Potassium Chloride ER] 10 meq PO BID 07/19/19 Promethazine HCl 25 mg PO Q6HR PRN 07/19/19 Scopolamine Patch 1.5MG [Transderm-Scop Patch] 1.5 mg TOP Q72H 07/19/19 Trazodone HCl [Trazodone Hydrochloride] 50 mg PO BEDTIME 07/19/19 Alum & Mag Hydrox-Simethicone [Mylanta] 30 ml PO Q8H PRN 03/09/20 Ascorbic Acid [Vitamin C] 500 mg PO DAILY 03/09/20 Hydroxyzine HCl [Hydroxyzine Hydrochloride] 25 mg PO Q6H PRN 03/09/20 Pantoprazole Tablet [Protonix] 40 mg PO ACBK 03/09/20 guaiFENesin 100 MG/5 ML [Robitussin] 30 ml PO TID 03/09/20 Levofloxacin [Levaquin] 750 mg PO DAILY #5 tablet 03/21/20 Prednisone 40 mg PO DAILY #8 tab 03/21/20 Additional Instructions: Prior sputum cultures grew MDR proteus and pseudomonas. Both cultures were sensitive to Zosyn. Recommend Zosyn 3.375 gm q6h until blood and sputum cultures are resulted and tailoring Abx therapy to sputum cultures at that time.
--- NOTE | 2020-11-21 20:41 | RAD ---
EXAM: Chest,1 View CLINICAL INDICATION: Shortness of breath COMPARISON: 09/08/2020 FINDINGS: A single view of the chest was obtained. The heart size is normal. The pulmonary vascularity is moderately congested. A tracheostomy is again noted. Bilateral perihilar infiltrates are noted suggesting pulmonary edema versus pneumonia. Chronic bibasilar scarring is noted. There is no pneumothorax. IMPRESSION: Moderate CHF. Chronic scarring and bilateral perihilar streaky opacities with no change from prior. Electronically signed by: Moise Barbosa MD 11/21/2020 8:39 PM [employer]
[2020-11-21 20:46] VITALS: O2SAT 100
[2020-11-21] MEDS ORDERED: VANCOMYCIN HCL INJ 1,000 MG, VANCOMYCIN HCL INJ 500 MG in SODIUM CHLORIDE 0.9% 250ML 25... IVPB SCH (21:00)
[2020-11-21] MEDS ORDERED: MORPHINE SULFATE INJ 10 MG/ML VIAL IV ONE (21:01)
[2020-11-21] MEDS ORDERED: MORPHINE SULFATE INJ 10 MG/ML VIAL ONE (21:03)
[2020-11-21] MEDS ORDERED: IPRATROPIUM/ALBUTEROL 3 ML VIAL NEB ONE (21:11)
[2020-11-21] MEDS ORDERED: ALBUTEROL SULFATE 2.5 MG/3 ML VIAL NEB ONE (21:11)
[2020-11-21] MEDS ORDERED: HYDROmorphone HCL INJ 2 MG/ML VIAL IV ONE (22:44)
[2020-11-22 00:26] VITALS: BP 90/50; TEMP 97.1
== END 2020-11-22 00:26 ==
LOC: ER 19:50
DX: J96.21 Acute and chronic respiratory failure with hypoxia (principal); J96.22 Acute and chronic respiratory failure with hypercapnia; J84.89 Other specified interstitial pulmonary diseases; T17.590A Other foreign object in bronchus causing asphyxiation, initial encounter; E88.01 Alpha-1-antitrypsin deficiency; I45.81 Long QT syndrome; E87.2 Acidosis; I50.9 Heart failure, unspecified; I11.0 Hypertensive heart disease with heart failure; Z20.828 Contact with and (suspected) exposure to other viral communicable diseases; Z93.0 Tracheostomy status; Z99.11 Dependence on respirator [ventilator] status; Z79.899 Other long term (current) drug therapy; Z88.6 Allergy status to analgesic agent
CPT/HCPCS: 36600; 71045; 80053; 81001; 82550; 82553; 82803; 82805; 83605; 83880; 84484; 85025; 85610; 85730; 87040; 87070; 87086; 87635; 93005; 94002; 94003; 94640; 94760; J1170; J2185; J2270; J3370; J7030; J7050; J7620

== ENCOUNTER 2020-11-23 06:15 | Emergency (ER) | payer MEDICARE, MEDICAID ==
[2020-11-23] MEDS ORDERED: IPRATROPIUM/ALBUTEROL 3 ML VIAL NEB ONE (06:44)
[2020-11-23] MEDS ORDERED: ALBUTEROL SULFATE 2.5 MG/3 ML VIAL NEB ONE (06:44)
[2020-11-23] MEDS: MORPHINE SULFATE INJ 10 MG/ML VIAL IV ONE (06:46)
[2020-11-23] MEDS: SODIUM CHLORIDE 0.9% (FLUSH) 10 ML SYG IV PRN (06:47)
[2020-11-23] MEDS: ONDANSETRON INJ 4 MG/2 ML VIAL IV ONE (06:47)
--- NOTE | 2020-11-23 06:48 | ED.PDOC ---
History of Present Illness - General Source: patient, RN notes reviewed, Vital Signs reviewed, EMS notes reviewed Exam Limitations: other - pt with difficulty speaking secondary to her trach. - History of Present Illness Initial Comments: Patient is a morbidly obese 35-year-old white female who presents with complaints of chest pain, shortness of breath. This is been ongoing intermittently for the last week. It is worsening. The pain is stabbing in nature. Nothing seems to make it better or worse. The intensity waxes and wanes. It is moderate in intensity on arrival here. Additionally patient is very anxious. Her chest pain does not radiate. Timing/Duration: 1 week Severity: moderate Improving Factors: nothing Worsening Factors: nothing Associated Symptoms: chest pain, cough, shortness of breath <Artemio Jones - Last Filed: 11/23/20 06:57> <Reyes Rodriguez - Last Filed: 11/23/20 07:54> - General Chief Complaint: Respiratory Problem Stated Complaint: shortness of breath, and pain Time Seen by Provider: 11/23/20 06:19 - History of Present Illness Allergies/Adverse Reactions: Allergies NSAIDs Allergy (Verified 09/08/20 20:15) Tomato Allergy (Verified 09/08/20 20:15) Home Medications: Ambulatory Orders Acetaminophen [Tylenol] 500 mg PO Q8HRS PRN 07/19/19 Arformoterol Tartrate Nebs [Brovana Nebs] 15 mcg NEB RTBID 07/19/19 Atropine 1% Ophth Briana [(None)] 5 ml SL TID 07/19/19 Budesonide (Inhalation) [Pulmicort] 0.5 mg INH BID 07/19/19 Cetirizine HCl [ZyrTEC] 10 mg PO DAILY 07/19/19 Clonazepam 1 mg PO Q8HRS 07/19/19 DULoxetine HCL [Cymbalta] 90 mg PO DAILY 07/19/19 Divalproex Sodium [Depakote Tab] 250 mg PO DAILY 07/19/19 Furosemide 60 mg PO DAILY 07/19/19 Gabapentin 600 mg PO Q8H 07/19/19 HYDROcodone 10MG/APAP 325MG [[place] 10/325] 1 tab PO Q8HRS PRN 07/19/19 Ipratropium/Albuterol [Duoneb] 3 ml NEB Q6HRS PRN 07/19/19 Lactobacillus [Acidophilus] 1 cap PO DAILY 07/19/19 Lidocaine 1% 2 ml [Xylocaine] 2 ml NEB Q6HRS PRN 07/19/19 Magnesium Hydroxide [Milk Of Magnesia] 30 ml PO DAILY PRN 07/19/19 Multiple Vitamins W/ Minerals [Multivitamin Adult Extra] 1 tablet PO DAILY 07/19/19 Nitroglycerin 0.4 mg Tab [Nitrostat] 0.4 mg SL Q5MIN PRN 07/19/19 Potassium Chloride [Potassium Chloride ER] 10 meq PO BID 07/19/19 Promethazine HCl 25 mg PO Q6HR PRN 07/19/19 Scopolamine Patch 1.5MG [Transderm-Scop Patch] 1.5 mg TOP Q72H 07/19/19 Trazodone HCl [Trazodone Hydrochloride] 50 mg PO BEDTIME 07/19/19 Alum & Mag Hydrox-Simethicone [Mylanta] 30 ml PO Q8H PRN 03/09/20 Ascorbic Acid [Vitamin C] 500 mg PO DAILY 03/09/20 Hydroxyzine HCl [Hydroxyzine Hydrochloride] 25 mg PO Q6H PRN 03/09/20 Pantoprazole Tablet [Protonix] 40 mg PO ACBK 03/09/20 guaiFENesin 100 MG/5 ML [Robitussin] 30 ml PO TID 03/09/20 Levofloxacin [Levaquin] 750 mg PO DAILY #5 tablet 03/21/20 Prednisone 40 mg PO DAILY #8 tab 03/21/20 Review of Systems - Review of Systems Constitutional: States: no symptoms reported, see HPI. Denies: chills, fever, malaise, weakness EENTM: States: no symptoms reported. Denies: eye pain, blurred vision, double vision, throat pain, throat swelling Respiratory: States: see HPI, cough, short of breath. Denies: stridor, wheezing Cardiology: States: see HPI, chest pain. Denies: palpitations, syncope Gastrointestinal/Abdominal: States: no symptoms reported. Denies: abdominal pain, diarrhea, nausea, vomiting Genitourinary: States: no symptoms reported. Denies: dysuria, frequency Musculoskeletal: States: no symptoms reported. Denies: back pain, joint pain, neck pain Skin: States: no symptoms reported. Denies: change in color, rash Neurological: States: no symptoms reported. Denies: headache, tingling, tremors, weakness Endocrine: States: no symptoms reported. Denies: increased hunger, increased thirst, increased urine Hematologic/Lymphatic: States: no symptoms reported. Denies: blood clots, easy bleeding All other Systems: Reviewed and Negative, No Change from Baseline <Artemio Jones - Last Filed: 11/23/20 06:57> Past Medical History (General) - Patient Medical History Hx Seizures: No Hx Stroke: No Hx Dementia: No Hx Asthma: No Hx of COPD: No Hx Cardiac Disorders: Yes - tachycardia Hx Congestive Heart Failure: Yes Hx Pacemaker: No Hx Hypertension: Yes Hx Thyroid Disease: No Hx Diabetes: No Hx Gastroesophageal Reflux: No Hx Renal Disease: No Hx Cancer: No Hx of HIV: No Hx Hepatitis C: No Hx MRSA: No - Vaccination History Hx Tetanus, Diphtheria Vaccination: No - patient cannot recall Hx Influenza Vaccination: Yes Hx Pneumococcal Vaccination: Yes - Social History Hx Tobacco Use: No Hx Chewing Tobacco Use: No Hx Alcohol Use: Yes Hx Substance Use: No Hx Substance Use Treatment: No Hx Depression: No Hx Physical Abuse: No Hx Emotional Abuse: No Hx Suspected Abuse: No - Female History Patient : No <Artemio Jones - Last Filed: 11/23/20 06:57> Family Medical History - Family History Mother Family History: Unknown <Artemio Jones - Last Filed: 11/23/20 06:57> Physical Exam - Physical Exam General Appearance: Alert, Anxious, Obvious distress, Obese, Well Developed, Well Groomed, Well Hydrated, Well Nourished Eye Exam: bilateral normal Ears, Nose, Throat: hearing grossly normal, normal pharynx Neck: non-tender, full range of motion, supple, other - trach in place. 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 No comparison EKG available at this time. <Artemio Jones - Last Filed: 11/23/20 06:57> - Progress Progress: 11/23/20 07:48 Patient turned over to me by Dr. Jones. Patient seen and reassessed. Patient is a 35-year-old female with past medical history of alpha 1 antitrypsin deficiency, chronic respiratory failure with trac/vent dependence, bronchiectasis, panlobular bullous emphysema who presents to the ED with chest discomfort. Patient's pain is presently well controlled and her work-up today is baseline for her. Patient has elevated D-dimer but review of EMR reveals sev eral previous episodes with elevated D-dimer with a normal CT chest done in August. Patient tells me her symptoms today are similar to her recent visits to the ED dating back to August and there is no indication to reCT patient's chest today. Patient is vent dependent and bedbound and I believe her D-dimer elevation is chronic. Patient is not hypoxic, her O2 sat is 100% on room air ventilator setting. Vital signs stable, patient is NAD and looks clinically well and I believe is safe for discharge with outpatient follow-up. Follow-up instructions, discharge instructions and return to ED precautions discussed with patient. Patient voices understanding and willingness to comply with instructions. All laboratory and/or radiographic results have been discussed with the patient, and all questions answered. Patient is happy with plan. Reyes Rodriguez MD <Reyes Rodriguez - Last Filed: 11/23/20 07:54> Departure - Departure Time of Disposition: 06:58 Diet: resume usual diet Activity: increase activity as tolerated <Artemio Jones - Last Filed: 11/23/20 06:57> <Reyes Rodriguez - Last Filed: 11/23/20 07:54> - Departure Clinical Impression: Chest pain Qualifiers: Chest pain type: unspecified Qualified Code(s): R07.9 - Chest pain, unspecified Dyspnea Qualifiers: Dyspnea type: unspecified Qualified Code(s): R06.00 - Dyspnea, unspecified Disposition: Discharge to Home or Self Care Condition: Fair Departure Forms: ED Discharge - Pt. Copy, Patient Portal Self Enrollment Referrals: NAVEEN ELLIS [Primary Care Provider] - 1-5 Days Home Medications: Ambulatory Orders Acetaminophen [Tylenol] 500 mg PO Q8HRS PRN 07/19/19 Arformoterol Tartrate Nebs [Brovana Nebs] 15 mcg NEB RTBID 07/19/19 Atropine 1% Ophth Briana [(None)] 5 ml SL TID 07/19/19 Budesonide (Inhalation) [Pulmicort] 0.5 mg INH BID 07/19/19 Cetirizine HCl [ZyrTEC] 10 mg PO DAILY 07/19/19 Clonazepam 1 mg PO Q8HRS 07/19/19 DULoxetine HCL [Cymbalta] 90 mg PO DAILY 07/19/19 Divalproex Sodium [Depakote Tab] 250 mg PO DAILY 07/19/19 Furosemide 60 mg PO DAILY 07/19/19 Gabapentin 600 mg PO Q8H 07/19/19 HYDROcodone 10MG/APAP 325MG [[place] 10/325] 1 tab PO Q8HRS PRN 07/19/19 Ipratropium/Albuterol [Duoneb] 3 ml NEB Q6HRS PRN 07/19/19 Lactobacillus [Acidophilus] 1 cap PO DAILY 07/19/19 Lidocaine 1% 2 ml [Xylocaine] 2 ml NEB Q6HRS PRN 07/19/19 Magnesium Hydroxide [Milk Of Magnesia] 30 ml PO DAILY PRN 07/19/19 Multiple Vitamins W/ Minerals [Multivitamin Adult Extra] 1 tablet PO DAILY 07/19/19 Nitroglycerin 0.4 mg Tab [Nitrostat] 0.4 mg SL Q5MIN PRN 07/19/19 Potassium Chloride [Potassium Chloride ER] 10 meq PO BID 07/19/19 Promethazine HCl 25 mg PO Q6HR PRN 07/19/19 Scopolamine Patch 1.5MG [Transderm-Scop Patch] 1.5 mg TOP Q72H 07/19/19 Trazodone HCl [Trazodone Hydrochloride] 50 mg PO BEDTIME 07/19/19 Alum & Mag Hydrox-Simethicone [Mylanta] 30 ml PO Q8H PRN 03/09/20 Ascorbic Acid [Vitamin C] 500 mg PO DAILY 03/09/20 Hydroxyzine HCl [Hydroxyzine Hydrochloride] 25 mg PO Q6H PRN 03/09/20 Pantoprazole Tablet [Protonix] 40 mg PO ACBK 03/09/20 guaiFENesin 100 MG/5 ML [Robitussin] 30 ml PO TID 03/09/20 Levofloxacin [Levaquin] 750 mg PO DAILY #5 tablet 03/21/20 Prednisone 40 mg PO DAILY #8 tab 03/21/20
[2020-11-23 06:49] VITALS: TEMP 98.7
--- NOTE | 2020-11-23 07:03 | RAD ---
EXAM: XR CHEST 1 VIEW HISTORY: 35 years, Female, chest pain, sob TECHNIQUE: Chest,1 View COMPARISON: November 21, 2020 FINDINGS: Again seen is a tracheostomy tube. The cardiac silhouette is within normal limits. There are fibrotic appearing right perihilar and right lower lobe streaky opacities within appearance suggesting scarring although superimposed infectious process not excluded. There is poor definition of the right costophrenic angle suggesting effusion. The previously seen vascular congestion has decreased. IMPRESSION: Tracheostomy. Decreased vascular congestion. Perihilar and right lower lobe fibrotic appearing scarring similar to prior. Electronically signed by: Sejal Atkins MD 11/23/2020 7:01 AM [facility]
[2020-11-23] MEDS: HYDROcodone 10MG/APAP 325MG 1 EA TAB PO ONE (07:51)
[2020-11-23 08:27] VITALS: BP 91/54; O2SAT 100
== END 2020-11-23 08:18 | disposition home or self-care (01) ==
LOC: ER 06:15
DX: R07.9 Chest pain, unspecified (principal); R06.02 Shortness of breath; E88.01 Alpha-1-antitrypsin deficiency; J96.10 Chronic respiratory failure, unspecified whether with hypoxia or hypercapnia; J43.1 Panlobular emphysema; I11.0 Hypertensive heart disease with heart failure; I50.9 Heart failure, unspecified; E66.01 Morbid (severe) obesity due to excess calories; Z20.822 Contact with and (suspected) exposure to COVID-19; Z99.11 Dependence on respirator [ventilator] status; Z93.0 Tracheostomy status; Z74.01 Bed confinement status; Z79.899 Other long term (current) drug therapy; Z88.6 Allergy status to analgesic agent

== ENCOUNTER 2020-12-01 02:02 | Emergency (ER) | payer MEDICARE, MEDICAID ==
--- NOTE | 2020-12-01 02:43 | ED.PDOC ---
History of Present Illness - General Source: patient, EMS, skilled nursing records - History of Present Illness Initial Comments: 35-year-old female with past medical history of trach/vent dependence, alpha 1 antitrypsin deficiency, panlobular bullous emphysema, bronchiectasis, anxiety who is brought in by EMS from [facility] for chief complaint of acute respiratory distress and hypoxia. Patient was reported to have onset of increased respiratory effort at 7 PM. Symptoms reportedly worsened over the past several hours and were not relieved by increasing her vent settings and 100% FiO2. She was reported to have 75% SPO2 on 100% FiO2. EMS was called. EMS reported that the patient was given bag valve assisted respirations en route which seemed to resolve her respiratory distress. Upon ED arrival patient noted to have 100% SPO2 and to be in no respiratory distress. She was placed on her baseline vent settings and reports feeling much better. PEEP 10, tidal volume 450, FiO2 50%. Patient does report that she has been having some increased trouble breathing, increased cough and sputum production in the past several days due to the change in weather. Patient is seen here frequently for similar episodes of respiratory distress. Often she is found to have mucous plugging and symptoms resolve with suctioning or assisted ventilations. She states that she felt that she was having a panic attack earlier but feels much better now. Also believes she likely had a mucous plug like she has had in the past and believes she may have pneumonia. She was given hospice medications of Dilaudid 30 mg p.o. total as well as Valium prior to ED arrival. She reports also chest pain for the past 2 days - reports located to R side of chest, constant, mostly sharp/stabbing but has also had pressure, 9/10 severity, worse with coughing and palpation of chest wall, not much improved with pain meds. Denies any fevers, chills, abdominal pain, nausea/vomiting/diarrhea, leg pain or swelling. Pt has no hx of CAD or ACS in the past. Pt is on [facility] but is a full code. <Saeid Norris - Last Filed: 12/01/20 06:49> <Song Ricks - Last Filed: 12/01/20 07:51> - General Chief Complaint: Behavioral / Psych Stated Complaint: low O2 sats, anxiety Time Seen by Provider: 12/01/20 02:16 - History of Present Illness Allergies/Adverse Reactions: Allergies NSAIDs Allergy (Verified 12/01/20 02:23) Tomato Allergy (Verified 12/01/20 02:23) Home Medications: Ambulatory Orders Acetaminophen [Tylenol] 500 mg PO Q8HRS PRN 07/19/19 Arformoterol Tartrate Nebs [Brovana Nebs] 15 mcg NEB RTBID 07/19/19 Atropine 1% Ophth Briana [(None)] 5 ml SL TID 07/19/19 Budesonide (Inhalation) [Pulmicort] 0.5 mg INH BID 07/19/19 Cetirizine HCl [ZyrTEC] 10 mg PO DAILY 07/19/19 Clonazepam 1 mg PO Q8HRS 07/19/19 DULoxetine HCL [Cymbalta] 90 mg PO DAILY 07/19/19 Divalproex Sodium [Depakote Tab] 250 mg PO DAILY 07/19/19 Furosemide 60 mg PO DAILY 07/19/19 Gabapentin 600 mg PO Q8H 07/19/19 HYDROcodone 10MG/APAP 325MG [Camuy 10/325] 1 tab PO Q8HRS PRN 07/19/19 Ipratropium/Albuterol [Duoneb] 3 ml NEB Q6HRS PRN 07/19/19 Lactobacillus [Acidophilus] 1 cap PO DAILY 07/19/19 Lidocaine 1% 2 ml [Xylocaine] 2 ml NEB Q6HRS PRN 07/19/19 Magnesium Hydroxide [Milk Of Magnesia] 30 ml PO DAILY PRN 07/19/19 Multiple Vitamins W/ Minerals [Multivitamin Adult Extra] 1 tablet PO DAILY 07/19/19 Nitroglycerin 0.4 mg Tab [Nitrostat] 0.4 mg SL Q5MIN PRN 07/19/19 Potassium Chloride [Potassium Chloride ER] 10 meq PO BID 07/19/19 Promethazine HCl 25 mg PO Q6HR PRN 07/19/19 Scopolamine Patch 1.5MG [Transderm-Scop Patch] 1.5 mg TOP Q72H 07/19/19 Trazodone HCl [Trazodone Hydrochloride] 50 mg PO BEDTIME 07/19/19 Alum & Mag Hydrox-Simethicone [Mylanta] 30 ml PO Q8H PRN 03/09/20 Ascorbic Acid [Vitamin C] 500 mg PO DAILY 03/09/20 Hydroxyzine HCl [Hydroxyzine Hydrochloride] 25 mg PO Q6H PRN 03/09/20 Pantoprazole Tablet [Protonix] 40 mg PO ACBK 03/09/20 guaiFENesin 100 MG/5 ML [Robitussin] 30 ml PO TID 03/09/20 Levofloxacin [Levaquin] 750 mg PO DAILY #5 tablet 03/21/20 Prednisone 40 mg PO DAILY #8 tab 03/21/20 Review of Systems - Review of Systems Review of Systems: 12/01/20 02:44 as per HPI All other Systems: Reviewed and Negative <Saeid Norris - Last Filed: 12/01/20 06:49> Past Medical History (General) - Patient Medical History Hx Seizures: No Hx Stroke: No Hx Dementia: No Hx Asthma: No Hx of COPD: No Hx Cardiac Disorders: Yes - tachycardia Hx Congestive Heart Failure: Yes Hx Pacemaker: No Hx Hypertension: Yes Hx Thyroid Disease: No Hx Diabetes: No Hx Gastroesophageal Reflux: No Hx Renal Disease: No Hx Cancer: No Hx of HIV: No Hx Hepatitis C: No Hx MRSA: No Surgical History: noncontributory - Vaccination History Hx Tetanus, Diphtheria Vaccination: No - patient cannot recall Hx Influenza Vaccination: Yes Hx Pneumococcal Vaccination: Yes - Social History Hx Tobacco Use: No Hx Chewing Tobacco Use: No Hx Alcohol Use: Yes Hx Substance Use: No Hx Substance Use Treatment: No Hx Depression: No Hx Physical Abuse: No Hx Emotional Abuse: No Hx Suspected Abuse: No - Activities of Daily Living Halfway/Assisted Living (if applicable):: Sekou Cerrato - Female History Patient : No <Saeid Norris - Last Filed: 12/01/20 06:49> Family Medical History - Family History Mother Family History: Unknown <Saeid Norris - Last Filed: 12/01/20 06:49> Physical Exam - Physical Exam General Appearance: Alert, Comfortable, No apparent distress, Obese Eye Exam: bilateral normal Ears, Nose, Throat: hearing grossly normal, normal ENT inspection, normal pharynx Neck: non-tender, full range of motion, supple, normal inspection, other - tracheostomy tube in place, small amount of clear/yellow mucoid secretions in tube Respiratory: chest non-tender, no respiratory distress, no accessory muscle use, rhonchi, other - good air movement throughout with scattered rhonchi but no rales or wheezes, breathing comfortably, no distress Cardiovascular/Chest: normal peripheral pulses, regular rate, rhythm, no edema, no gallop, no JVD, no murmur Peripheral Pulses: radial,right: 2+, radial,left: 2+ Gastrointestinal/Abdominal: non tender, soft, no organomegaly Back Exam: normal inspection Extremity: normal range of motion, non-tender, normal inspection, no pedal edema, no calf tenderness, normal capillary refill Neurologic: javascript ui developer II-XII nml as tested, no motor/sensory deficits, alert, normal mood/affect, oriented x 3 Skin Exam: normal color, warm/dry <Saeid Norris - Last Filed: 12/01/20 06:49> Progress - Progress Progress: 12/01/20 02:48 Acute hypoxic respiratory distress, now resolved -suspect most likely mucous plugging which has now resolved as pt is now markedly improved just prior to ED arrival. Consider also PNA, ACS, PE, COVID- 19, influenza, other -obtain CXR, bloodwork, cardiac work-up, rapid COVID & flu testing, monitor in ED 12/01/20 03:20 -Critical lab - troponin 0.12. On chart review, pt has never had a positive troponin result here before. States CP remains 9/10 severity but is no acute distress. BP 100s/70s. Will give baby ASA 324 mg PO, trial of NTG SL. Plan to monitor closely & repeat cardiac work-up at 2 hours. -Other pertinent labs: WBC 13,000 with slight left shift w/o bandemia, lactate 0.8. Rapid COVID-19 & flu testing negative. CXR with chronic interstitial changes/scarring, largely unchanged from prior. Pt afebrile. Suspect leukocytosis likely from acute dyspnea & chest pain. Possibly early PNA. Will withhold Abx for now. 12/01/20 04:55 -Patient remains stable. Repeat EKG is unchanged. Repeat troponin has increased from 0.12, now to 0.16. Discussed findings with patient. Given elevated and rising troponin along with nonspecific T wave inversions which are new on her EKG, I am concerned for NSTEMI. She reports no improvement in chest pain with nitroglycerin or baby aspirin. Blood pressure remains borderline low at 100s/70s. Will Place Nitropaste to chest wall and monitor blood pressure closely. Will give Lovenox 1 mg/kg SQ. Attempting to find transfer facility with an open bed. Currently have tried 5 different facilities but no beds found yet. 12/01/20 05:51 -Spoke with Dr. Jackson at [facility] in [place] who accepts pt for ED to ED transfer. Requesting CTA Chest prior to transfer. Pt is difficult IV stick - attempting to find access for 20 gauge IV catheter in order to get CTA prior to transfer. D-dimer is slightly elevated at 1000 which is usually where her d- dimer value is from previous visits. She does not have hx of PE previously. -Pt will go via ground EMS. We will attempt to update family as well. 12/01/20 06:49 -RN was able to place a 20 g IV to RUE. Obtaining CTA chest. Hand off given to Dr. Ricks at shift change. Saeid Norris MD Billing #[id number] 12/01/20 03:16 EKG Assessment ONCE 12/01/20 03:28 CTA Chest [CT] Stat 12/01/20 04:00 EKG STAT 12/01/20 04:05 BLOOD CULTURE Stat 12/01/20 04:30 EKG Assessment ONCE EKG STAT Laboratory Results - last 24 hr 12/01/20 12/01/20 12/01/20 02:24 02:24 02:33 WBC 13.2 H RBC 3.45 L Hgb 9.4 L Hct 31.1 L MCV 90.2 MCH 27.1 MCHC 30.1 L RDW 16.3 H Plt Count 292 MPV 7.5 Absolute Neuts (auto) 10.80 H Absolute Lymphs (auto) 0.70 L Absolute Monos (auto) 1.60 H Absolute Eos (auto) 0.10 Absolute Basos (auto) 0.00 Neutrophils % 81.7 H Lymphocytes % 5.2 L Monocytes % 12.4 H Eosinophils % 0.5 L Basophils % 0.2 D-Dimer, Quantitative Sodium 144 Potassium 4.2 Chloride 85 L Carbon Dioxide 49 H Anion Gap 14.2 BUN 9 Creatinine 0.79 BUN/Creatinine Ratio 11.4 Random Glucose 128 H Serum Osmolality 287.2 Lactic Acid Calcium 9.3 Troponin I 0.12 H* B-Natriuretic Peptide 12/01/20 12/01/2021 02:33 03:03 03:46 WBC RBC Hgb Hct MCV MCH MCHC RDW Plt Count MPV Absolute Neuts (auto) Absolute Lymphs (auto) Absolute Monos (auto) Absolute Eos (auto) Absolute Basos (auto) Neutrophils % Lymphocytes % Monocytes % Eosinophils % Basophils % D-Dimer, Quantitative 1060.0 H* Sodium Potassium Chloride Carbon Dioxide Anion Gap BUN Creatinine BUN/Creatinine Ratio Random Glucose Serum Osmolality Lactic Acid 0.8 Calcium Troponin I B-Natriuretic Peptide 104.0 H 12/01/20 04:00 WBC RBC Hgb Hct MCV MCH MCHC RDW Plt Count MPV Absolute Neuts (auto) Absolute Lymphs (auto) Absolute Monos (auto) Absolute Eos (auto) Absolute Basos (auto) Neutrophils % Lymphocytes % Monocytes % Eosinophils % Basophils % D-Dimer, Quantitative Sodium Potassium Chloride Carbon Dioxide Anion Gap BUN Creatinine BUN/Creatinine Ratio Random Glucose Serum Osmolality Lactic Acid Calcium Troponin I 0.16 H* B-Natriuretic Peptide - EKG/XRAY/CT EKG: Sinus, Tachy - HR 105, no ST elevs noted, no q waves, nonspecific T wave inversions noted in anteroseptal and inferior leads, axis normal, Left axis deviation present, compared to 11/23/2020 EKG T wave inversions appear new XRAY: chest - Bilateral chronic interstitial scarring/opacifications noted as well as bullous emphysematous changes to the right lower lobe, compared to 11/23 chest x-ray appears largely unchanged per my read - Additional EKG/XRAY/Consults EKG #2: Unchanged from - initial <Saeid Norris - Last Filed: 12/01/20 06:49> - Progress Progress: cta negative for PE. LLL pneumonia seen. blood sputum cultures done. rocephin and azithro started. transferring for carrdiac eval. 12/01/20 07:50 <Song Ricks - Last Filed: 12/01/20 07:51> Departure - Departure Time of Disposition: 05:50 <Saeid Norris - Last Filed: 12/01/20 06:49> <Song Ricks - Last Filed: 12/01/20 07:51> - Departure Clinical Impression: NSTEMI (non-ST elevated myocardial infarction) Disposition: Transfer to Hospital Condition: Fair Departure Forms: ED Discharge - Pt. Copy, Patient Portal Self Enrollment Instructions: DI for Psychosis Referrals: NAVEEN ELLIS [Primary Care Provider] - 1-2 Weeks Home Medications: Ambulatory Orders Acetaminophen [Tylenol] 500 mg PO Q8HRS PRN 07/19/19 Arformoterol Tartrate Nebs [Brovana Nebs] 15 mcg NEB RTBID 07/19/19 Atropine 1% Ophth Briana [(None)] 5 ml SL TID 07/19/19 Budesonide (Inhalation) [Pulmicort] 0.5 mg INH BID 07/19/19 Cetirizine HCl [ZyrTEC] 10 mg PO DAILY 07/19/19 Clonazepam 1 mg PO Q8HRS 07/19/19 DULoxetine HCL [Cymbalta] 90 mg PO DAILY 07/19/19 Divalproex Sodium [Depakote Tab] 250 mg PO DAILY 07/19/19 Furosemide 60 mg PO DAILY 07/19/19 Gabapentin 600 mg PO Q8H 07/19/19 HYDROcodone 10MG/APAP 325MG [Camuy 10/325] 1 tab PO Q8HRS PRN 07/19/19 Ipratropium/Albuterol [Duoneb] 3 ml NEB Q6HRS PRN 07/19/19 Lactobacillus [Acidophilus] 1 cap PO DAILY 07/19/19 Lidocaine 1% 2 ml [Xylocaine] 2 ml NEB Q6HRS PRN 07/19/19 Magnesium Hydroxide [Milk Of Magnesia] 30 ml PO DAILY PRN 07/19/19 Multiple Vitamins W/ Minerals [Multivitamin Adult Extra] 1 tablet PO DAILY 07/19/19 Nitroglycerin 0.4 mg Tab [Nitrostat] 0.4 mg SL Q5MIN PRN 07/19/19 Potassium Chloride [Potassium Chloride ER] 10 meq PO BID 07/19/19 Promethazine HCl 25 mg PO Q6HR PRN 07/19/19 Scopolamine Patch 1.5MG [Transderm-Scop Patch] 1.5 mg TOP Q72H 07/19/19 Trazodone HCl [Trazodone Hydrochloride] 50 mg PO BEDTIME 07/19/19 Alum & Mag Hydrox-Simethicone [Mylanta] 30 ml PO Q8H PRN 03/09/20 Ascorbic Acid [Vitamin C] 500 mg PO DAILY 03/09/20 Hydroxyzine HCl [Hydroxyzine Hydrochloride] 25 mg PO Q6H PRN 03/09/20 Pantoprazole Tablet [Protonix] 40 mg PO ACBK 03/09/20 guaiFENesin 100 MG/5 ML [Robitussin] 30 ml PO TID 03/09/20 Levofloxacin [Levaquin] 750 mg PO DAILY #5 tablet 03/21/20 Prednisone 40 mg PO DAILY #8 tab 03/21/20 Transfer to Outside Facility - Transfer Information Decision to Transfer Date: 12/01/20 Decision to Transfer Time: 05:48 Reason for Transfer: required specialist not available - cardiology Accepting Provider:: Dr. Lisandro Jackson Accepting Facility: [facility] <Saeid Norris - Last Filed: 12/01/20 06:49>
--- NOTE | 2020-12-01 03:13 | RAD ---
EXAM DESCRIPTION: Chest,1 View 12/01/2020 3:08 AM TELEVISION INSPECTOR CLINICAL HISTORY: 35 years, Female, low O2 sats COMPARISON: 11/23/2020 FINDINGS: Single view of the chest was obtained portable. Prior films were compared. Again there is a tracheostomy tube in good position. The the heart is not enlarged. The thoracic aorta demonstrate to be unremarkable. Resolution previous described pulmonary venous congestion. Hyperinflation. Chronic lung changes. Superimposed bilateral interstitial infiltrates cannot be excluded. Bullous changes right lung base. Costophrenic angles are sharp. No areas of consolidation or masses are seen. The rest of the soft tissue and bony structures demonstrate to be unremarkable. IMPRESSION: TRACHEOSTOMY TUBE IN PLACE. HYPERINFLATION-COPD WITH A BULLOUS CHANGES LOWER LUNG ZONES. INTERSTITIAL CHANGES MID LUNG ZONES CHRONIC LUNG CHANGES AND/OR SUPERIMPOSED INTERSTITIAL-VIRAL PNEUMONIA COULD BE OF CONSIDERATION. NO LONGER VISUALIZED PULMONARY VENOUS CONGESTION. OVERALL NO SIGNIFICANT INTERVAL CHANGE IN COMPARISON WITH A RECENT STUDY. Electronically signed by: Davie Hogan MD 12/01/2020 3:11 AM TELEVISION INSPECTOR
[2020-12-01] MEDS ORDERED: ASPIRIN (CHEWABLE) 81 MG TAB PO ONE (03:17)
[2020-12-01] MEDS ORDERED: NITROGLYCERIN 0.4 MG 25 EA TAB SL ONE (03:17)
[2020-12-01] MEDS ORDERED: SODIUM CHLORIDE 0.9% 1000ML 1,000 ML IVS ONE (03:30)
[2020-12-01] MEDS ORDERED: NITROGLYCERIN 2% 1 GM UD TOP ONE (05:02)
[2020-12-01] MEDS ORDERED: ENOXAPARIN SODIUM 100 MG/ML SYG SUBCU ONE (05:48)
[2020-12-01] MEDS ORDERED: ENOXAPARIN SODIUM 40 MG/0.4 ML SYG SUBCU ONE (05:48)
--- NOTE | 2020-12-01 07:03 | CT ---
EXAM DESCRIPTION: CTA Chest RadLex: CT CHEST ANGIOGRAPHY WITH IV CONTRAST CLINICAL HISTORY: respiratory distress, chest pain, elevated d-dimer; MAIN TECHNIQUE: CT angiogram of the chest using intravenous contrast. MIP reconstructions were performed. All CT scans at this facility use dose modulation, iterative reconstruction, and/or weight based dosing when appropriate to reduce radiation dose to as low as reasonably achievable. COMPARISON: September 06, 2020 FINDINGS: Pulmonary arteries: The pulmonary arteries appear widely patent. There is no evidence for pulmonary embolism. Mediastinum:The heart and great vessels appear unremarkable. There is no evidence for pericardial effusion. There is no pathologically enlarged adenopathy. LUNGS: Again noted are diffuse stable emphysematous changes and bronchiectasis similar to the prior exam. The patient has developed a new rounded masslike area of consolidation within the posterior aspect of the left lower lobe concerning for developing pneumonia. There is no effusion or pneumothorax. visualized abdomen:The visualized solid organs of the abdomen appear unremarkable. Bones and soft tissues:The soft tissues and osseous structures appear unremarkable. IMPRESSION: Severe COPD and bronchiectasis similar to the prior exam. Rounded masslike area of consolidation seen within the posterior aspect of the left lower lobe likely representing an area of rounded pneumonia cannot completely exclude the possibility of a mass recommend follow-up to resolution. Electronically signed by: Adan Carpenter MD 12/01/2020 7:01 AM LINE HAUL DRIVER
[2020-12-01] MEDS ORDERED: cefTRIAXone SODIUM 1 GM in SODIUM CHL 0.9% 50ML MIN-BAG+ 50 ML IVPB ONE (07:49)
[2020-12-01] MEDS ORDERED: AZITHROMYCIN IV 500 MG in SODIUM CHLORIDE 0.9% 250ML 250 ML IVPB ONE (07:49)
[2020-12-01 07:51] VITALS: O2SAT 96
[2020-12-01 10:36] VITALS: BP 93/60; TEMP 97.9
== END 2020-12-01 09:00 | disposition short-term general hospital (02) ==
LOC: ER 02:02
DX: I21.4 Non-ST elevation (NSTEMI) myocardial infarction (principal); R00.0 Tachycardia, unspecified; R91.8 Other nonspecific abnormal finding of lung field; I50.9 Heart failure, unspecified; I11.0 Hypertensive heart disease with heart failure; Z20.822 Contact with and (suspected) exposure to COVID-19; Z93.0 Tracheostomy status; Z79.899 Other long term (current) drug therapy; Z88.6 Allergy status to analgesic agent; Z99.11 Dependence on respirator [ventilator] status
CPT/HCPCS: 36415; 71045; 71275; 80048; 83605; 83880; 84484; 85025; 85379; 87040; 87502; 87635; 93005; 94002; 94003; 94760; J0456; J0696; J1650; J7030; J7050